=== PATIENT | male | born 1960 | race Two or more races ===

== ENCOUNTER 2019-10-16 10:43 | Inpatient (IN) | payer MEDICAID ==
[~2019-10-16] VITALS: Ht 162.6 cm; Wt 69.0 kg
[~2019-10-16 10:43] MED LIST: IBUP400T35
[2019-10-16] MEDS ORDERED: PANTOPRAZOLE 40 MG/10 ML VIAL INJ IV ONE (11:15)
[2019-10-16] MEDS ORDERED: DexAMETHasone SOD PHOS 4 MG/1ML SDV INJ IV ONE (11:15)
[2019-10-16] MEDS ORDERED: ASCORBIC ACID 500 MG TAB PO ONE (11:15)
[2019-10-16 12:27] LABS: Basophils # (auto) 0 10 ^3/uL (0-0.2); Basophils % (auto) 0.3 % (0.0-2.0); Eosinophils # (auto) 0.1 10 ^3/uL (0-0.8); Eosinophils % (auto) 0.7 % (0.0-7.0); Hematocrit 42.4 % (41.0-53.0); Hemoglobin 14.5 g/dL (13.5-17.5); Lymphocytes # (auto) 1.2 10 ^3/uL (0.4-5.4); Lymphocytes % (auto) 16.6 % (10.0-50.0); Mean Corpuscular Hemoglobin 31.1 pg (28.0-32.0); Mean Corpuscular Hgb Conc. 34.2 g/dL (32.0-36.0); Monocytes # (auto) 0.8 10 ^3/uL (0-1.3); Monocytes % (auto) 11.4 % (0.0-12.0); Neutrophils # (auto) 5.1 10 ^3/uL (1.6-8.6); Nucleated Red Blood Cells % 0.1 %; Platelet Count (auto) 135 10^3/uL (140-450); Red Blood Cells 4.66 10^6/uL (4.5-5.90); Red Cell Distribution Width 13.3 % (11.8-14.3); White Blood Cell 7.1 10^3/uL (4.4-10.8)
[2019-10-16 12:46] LABS: Albumin 3.4 g/dL (3.4-5.0); Anion Gap 7 (5-15); Blood Urea Nitrogen 12 mg/dL (7-18); Calcium 8.4 mg/dL (8.5-10.1); Carbon Dioxide 23 mmol/L (21-32); Chloride 103 mmol/L (98-107); Glucose 89 mg/dL (74-106); Potassium 3.9 mmol/L (3.5-5.1); Sodium 133 mmol/L (136-145)
[2019-10-16 12:54] LABS: Alanine Aminotransferase 80 U/L (16-61); Alkaline Phosphatase 90 U/L (45-117); Aspartate Aminotransferase 78 U/L (15-37); BUN/Creatinine Ratio 14.1; Bilirubin, Total 0.4 mg/dL (0.2-1.0); CRP High Sensitivity 1.28 mg/dL (< 0.3); GFR African American 119 mL/min; GFR Non-African American 98 mL/min; Lactate Dehydrogenase 244 U/L (87-241); Total Protein 7.4 g/dL (6.4-8.2)
[2019-10-16] MEDS ORDERED: ENOXAPARIN SOD 100 MG/1 ML SYRINGE SC ONE (13:15)
[2019-10-16] MEDS ORDERED: AZITHROMYCIN 500MG/ 250ML 250 ML IV ONE (13:30)
[2019-10-16] MEDS ORDERED: SODIUM CHLORIDE 0.9% 1,000 ML IV SCH (13:42)
[2019-10-16] MEDS ORDERED: DOCUSATE SOD 100 MG CAP PO PRN (13:45)
[2019-10-16] MEDS ORDERED: ACETAMINOPHEN 500 MG TAB PO PRN (13:45)
[2019-10-16] MEDS ORDERED: ONDANSETRON HCL 4 MG/2 ML VIAL IV PRN (13:45)
[2019-10-16] MEDS ORDERED: NITROGLYCERIN 0.4 MG SL TAB SL PRN (13:45)
[2019-10-16] MEDS ORDERED: MORPHINE SULF INJ 2 MG/ML SYRINGE 1ML IV PRN ×2 (13:45)
[2019-10-16] MEDS ORDERED: HYDROcodone-ACET 5/325MG TAB PO PRN (13:45)
[2019-10-16] MEDS ORDERED: LORazepam 0.5 MG TAB PO PRN (13:45)
[2019-10-16] MEDS ORDERED: FUROSEMIDE 20 MG/2 ML VIAL IV ONE (14:00)
[2019-10-16] MEDS ORDERED: DexAMETHasone 4 MG TAB PO ONE (14:00)
[2019-10-16 18:13] LABS: Cholesterol 97 mg/dL (< 200); HDL Cholesterol 42 mg/dL (40-59); LDL Cholesterol 51 mg/dL (< 100); Triglycerides 44 mg/dL (< 150)
[2019-10-16] MEDS: FUROSEMIDE 20 MG/2 ML VIAL IV SCH (18:17)
[2019-10-16 18:18] LABS: Albumin 3.7 g/dL (3.4-5.0); Calcium 8.7 mg/dL (8.5-10.1); Potassium 4.2 mmol/L (3.5-5.1)
[2019-10-16 18:27] LABS: BUN/Creatinine Ratio 15.6; Bilirubin, Total 0.4 mg/dL (0.2-1.0); CRP High Sensitivity 2.06 mg/dL (< 0.3)
[2019-10-16] MEDS: DexAMETHasone 4 MG TAB PO SCH (22:00)
[2019-10-16] MEDS: ALBUTEROL SULF HFA 90MCG INH 200DOSE IN SCH (22:00)
[2019-10-16] MEDS: FAMOTIDINE (10MG/ML) 2ML VL IV SCH (22:00)
[2019-10-16] MEDS: DOXYCYCLINE 100 MG TAB/CAP PO SCH (22:00)
[2019-10-17] VITALS (7 sets, daily range): BP systolic 97–116; BP diastolic 60–66
[2019-10-17] MEDS: ALBUTEROL SULF HFA 90MCG INH 200DOSE IN SCH ×3 (06:00→22:03)
[2019-10-17] MEDS: FUROSEMIDE 20 MG/2 ML VIAL IV SCH (06:28)
[2019-10-17] MEDS: FAMOTIDINE (10MG/ML) 2ML VL IV SCH ×2 (09:54→21:56)
[2019-10-17] MEDS: DexAMETHasone 4 MG TAB PO SCH (09:55)
[2019-10-17] MEDS: ZINC SULFATE 220mg CAP or TAB PO SCH (09:55)
[2019-10-17] MEDS: DOXYCYCLINE 100 MG TAB/CAP PO SCH ×2 (09:55→22:00)
[2019-10-17] MEDS: ENOXAPARIN SOD 40 MG/0.4 ML SYRINGE SC SCH (09:56)
[2019-10-17] MEDS: ASCORBIC ACID 1,000 MG TAB PO SCH (09:57)
[2019-10-17] MEDS: CHOLECALCIFEROL (VITD3) 1,000IU=25mCg TAB PO SCH (09:57)
[2019-10-17 10:18] LABS: Basophils # (auto) 0 10 ^3/uL (0-0.2); Basophils % (auto) 0.9 % (0.0-2.0); Eosinophils # (auto) 0 10 ^3/uL (0-0.8); Hematocrit 44.4 % (41.0-53.0); Lymphocytes % (auto) 18.8 % (10.0-50.0); Mean Corpuscular Hemoglobin 31.1 pg (28.0-32.0); Mean Corpuscular Hgb Conc. 33.8 g/dL (32.0-36.0); Monocytes # (auto) 0.5 10 ^3/uL (0-1.3); Monocytes % (auto) 9.5 % (0.0-12.0); Neutrophils # (auto) 3.6 10 ^3/uL (1.6-8.6); Neutrophils % (auto) 70.8 % (37.0-80.0); Nucleated Red Blood Cells % 0.1 %; Platelet Count (auto) 136 10^3/uL (140-450); Red Blood Cells 4.83 10^6/uL (4.5-5.90); Red Cell Distribution Width 13.2 % (11.8-14.3); White Blood Cell 5.1 10^3/uL (4.4-10.8)
[2019-10-17 10:25] LABS: INR 1.07 (0.9-1.15); Partial Thromboplastin Time 32.2 sec (23.64-32.05)
[2019-10-17 10:38] LABS: Potassium 4.3 mmol/L (3.5-5.1)
[2019-10-17 10:45] LABS: Albumin 3.4 g/dL (3.4-5.0); Bilirubin, Total 0.5 mg/dL (0.2-1.0); Calcium 8.5 mg/dL (8.5-10.1); Magnesium 2.3 mg/dL (1.6-2.6); Total Protein 7.5 g/dL (6.4-8.2)
[2019-10-17] MEDS ORDERED: INSULIN 70/30 1unit/0.01ml Susp (100units/ml) SC ONE (11:15)
[2019-10-17] MEDS: INSULIN 70/30 1unit/0.01ml Susp (100units/ml) SC SCH (22:01)
[2019-10-18 05:00] VITALS: BP 104/70
[2019-10-18] MEDS: ALBUTEROL SULF HFA 90MCG INH 200DOSE IN SCH ×2 (06:13→14:00)
[2019-10-18 07:33] LABS: Potassium 4.3 mmol/L (3.5-5.1)
[2019-10-18 07:40] LABS: Albumin 3.3 g/dL (3.4-5.0); BUN/Creatinine Ratio 36.5; Bilirubin, Total 0.4 mg/dL (0.2-1.0); Calcium 8.7 mg/dL (8.5-10.1); Total Protein 7.8 g/dL (6.4-8.2)
[2019-10-18 08:17] VITALS: BP 105/71
[2019-10-18] MEDS ORDERED: LISINOPRIL 5 MG TAB PO SCH (10:00)
[2019-10-18] MEDS: FAMOTIDINE (10MG/ML) 2ML VL IV SCH (10:09)
[2019-10-18] MEDS: CHOLECALCIFEROL (VITD3) 1,000IU=25mCg TAB PO SCH (10:10)
[2019-10-18] MEDS: DOXYCYCLINE 100 MG TAB/CAP PO SCH (10:10)
[2019-10-18] MEDS: ZINC SULFATE 220mg CAP or TAB PO SCH (10:10)
[2019-10-18] MEDS: ASCORBIC ACID 1,000 MG TAB PO SCH (10:10)
[2019-10-18] MEDS: ENOXAPARIN SOD 40 MG/0.4 ML SYRINGE SC SCH (10:11)
[2019-10-18] MEDS: INSULIN 70/30 1unit/0.01ml Susp (100units/ml) SC SCH (10:11)
[2019-10-18 13:00] VITALS: BP 104/61
[2019-10-18 15:05] VITALS: BP 105/71
[2019-10-18] MEDS ORDERED: ATORVASTATIN 20 MG TAB PO SCH (22:00)
== END 2019-10-18 15:35 | disposition home or self-care (01) | DRG 137 ==
LOC: ER 10:43 → TELE 10:44 → TELE-E-ADS 21:30
PROVIDERS: ADMIT Hospitalist; ATTEND Internal Medicine
DX: U07.1 COVID-19 (principal); J12.89 Other viral pneumonia; J96.01 Acute respiratory failure with hypoxia; D69.6 Thrombocytopenia, unspecified; E87.1 Hypo-osmolality and hyponatremia; I10 Essential (primary) hypertension; R43.9 Unspecified disturbances of smell and taste; E78.5 Hyperlipidemia, unspecified; E66.9 Obesity, unspecified; Z83.3 Family history of diabetes mellitus; Z80.9 Family history of malignant neoplasm, unspecified; Z87.891 Personal history of nicotine dependence; Z79.899 Other long term (current) drug therapy; J44.9 Chronic obstructive pulmonary disease, unspecified; Z68.27 Body mass index [BMI] 27.0-27.9, adult
CPT/HCPCS: 36415; 36600; 71045; 80053; 80061; 82728; 82805; 82962; 83036; 83605; 83615; 83735; 83880; 84100; 84443; 84484; 85025; 85379; 85610; 85730; 86141; 87040; 87804; 87880; 93005; 94640; C9113; G0378; J1100; J3490

== ENCOUNTER 2019-10-19 22:40 | Inpatient (IN) | payer MEDICAID ==
[~2019-10-19] VITALS: Ht 165.1 cm; Wt 57.1 kg
[2019-10-19 23:45] LABS: Basophils # (auto) 0 10 ^3/uL (0-0.2); Eosinophils # (auto) 0 10 ^3/uL (0-0.8); Hematocrit 46.6 % (41.0-53.0); Hemoglobin 15.9 g/dL (13.5-17.5); Lymphocytes # (auto) 0.7 10 ^3/uL (0.4-5.4); Lymphocytes % (auto) 10.4 % (10.0-50.0); Mean Corpuscular Hemoglobin 31.1 pg (28.0-32.0); Mean Corpuscular Hgb Conc. 34.2 g/dL (32.0-36.0); Mean Corpuscular Volume 91.1 fL (80.0-100.0); Monocytes # (auto) 0.4 10 ^3/uL (0-1.3); Monocytes % (auto) 5.7 % (0.0-12.0); Neutrophils # (auto) 5.7 10 ^3/uL (1.6-8.6); Neutrophils % (auto) 83.9 % (37.0-80.0); Nucleated Red Blood Cells % 0.2 %; Platelet Count (auto) 108 10^3/uL (140-450); Red Blood Cells 5.12 10^6/uL (4.5-5.90); Red Cell Distribution Width 13.6 % (11.8-14.3); White Blood Cell 6.8 10^3/uL (4.4-10.8)
[2019-10-20 00:05] LABS: Albumin 3.3 g/dL (3.4-5.0); Anion Gap 11 (5-15); Blood Urea Nitrogen 14 mg/dL (7-18); Calcium 8.3 mg/dL (8.5-10.1); Carbon Dioxide 22 mmol/L (21-32); Chloride 96 mmol/L (98-107); Glucose 285 mg/dL (74-106); Potassium 3.7 mmol/L (3.5-5.1); Sodium 129 mmol/L (136-145)
[2019-10-20 00:12] LABS: Alanine Aminotransferase 60 U/L (16-61); Alkaline Phosphatase 103 U/L (45-117); Aspartate Aminotransferase 55 U/L (15-37); BUN/Creatinine Ratio 12.3; Bilirubin, Total 0.5 mg/dL (0.2-1.0); GFR African American 85 mL/min; GFR Non-African American 70 mL/min; Total Protein 8.2 g/dL (6.4-8.2)
[2019-10-20] MEDS ORDERED: ONDANSETRON HCL 4 MG/2 ML VIAL IV PRN (02:45)
[2019-10-20] MEDS ORDERED: DEXTROSE (50%) 50ML SYRG IV PRN (02:45)
[2019-10-20] MEDS ORDERED: DOCUSATE SOD 100 MG CAP PO PRN (02:45)
[2019-10-20] MEDS ORDERED: HYDROcodone-ACET 5/325MG TAB PO PRN (02:45)
[2019-10-20] MEDS: SODIUM CHLORIDE 0.9% 1,000 ML IV SCH ×2 (04:22→22:13)
[2019-10-20] MEDS: ACETAMINOPHEN 500 MG TAB PO PRN (04:25)
[2019-10-20 05:41] LABS: Lactic Acid w/Reflex 5.5 mmol/L (0.4-2.0)
[2019-10-20] MEDS: ACCU-CHEK COMFORT CURVE STRIP VI SCH ×3 (06:24→17:53)
[2019-10-20] MEDS: InsuLIN REG 1unit/0.01ml Soln (100units/ml) SC SCH ×3 (06:30→17:54)
[2019-10-20 06:39] LABS: Urine Bacteria NONE SEEN /hpf (None Seen); Urine Blood Negative /uL (Negative); Urine WBC 2 /hpf (0 - 3)
[2019-10-20] MEDS: ALBUTEROL SULF HFA 90MCG INH 200DOSE IN SCH ×3 (07:39→21:53)
[2019-10-20 08:40] LABS: Basophils # (auto) 0 10 ^3/uL (0-0.2); Basophils % (auto) 0.1 % (0.0-2.0); Eosinophils # (auto) 0 10 ^3/uL (0-0.8); Eosinophils % (auto) 0.1 % (0.0-7.0); Hematocrit 39.3 % (41.0-53.0); Hemoglobin 13.7 g/dL (13.5-17.5); Lymphocytes # (auto) 0.8 10 ^3/uL (0.4-5.4); Lymphocytes % (auto) 15.9 % (10.0-50.0); Mean Corpuscular Hemoglobin 31.3 pg (28.0-32.0); Mean Corpuscular Hgb Conc. 34.8 g/dL (32.0-36.0); Mean Corpuscular Volume 89.8 fL (80.0-100.0); Monocytes # (auto) 0.4 10 ^3/uL (0-1.3); Monocytes % (auto) 7.8 % (0.0-12.0); Neutrophils % (auto) 76.1 % (37.0-80.0); Nucleated Red Blood Cells % 0.1 %; Platelet Count (auto) 84 10^3/uL (140-450); Red Blood Cells 4.38 10^6/uL (4.5-5.90); Red Cell Distribution Width 13.6 % (11.8-14.3); White Blood Cell 5.2 10^3/uL (4.4-10.8)
[2019-10-20 08:56] LABS: Calcium 7.6 mg/dL (8.5-10.1); Potassium 4.1 mmol/L (3.5-5.1)
[2019-10-20 08:59] LABS: BUN/Creatinine Ratio 16.9; Magnesium 2.2 mg/dL (1.6-2.6)
[2019-10-20 09:30] VITALS: BP 105/70
--- NOTE | 2019-10-20 09:30 | NUR ---
Telemetry admit from ER RITA PALM admitted to Telemetry unit after SBAR received. Patient oriented to KINDRA CHAPMAN, primary RN, unit, room, bed, and unit policies regarding patient care and visiting hours. Patient now on continuous telemetry monitoring, tele box # 11 and telemetry reading on arrival to unit is SR. Patient placed on bedside oxygen AT 5L, weighed by bedscale and encouraged to call if they need something. All questions and concerns addressed, patient verbalized understanding.
[2019-10-20 09:54] VITALS: BP 110/67
[2019-10-20] MEDS: DOXYCYCLINE 100 MG TAB/CAP PO SCH ×2 (12:09→22:14)
[2019-10-20] MEDS: ASCORBIC ACID 1,000 MG TAB PO SCH (12:09)
[2019-10-20] MEDS: ZINC SULFATE 220mg CAP or TAB PO SCH (12:09)
[2019-10-20] MEDS: CHOLECALCIFEROL (VITD3) 1,000UNIT=25mCg TAB PO SCH (12:10)
[2019-10-20] MEDS: ENOXAPARIN SOD 40 MG/0.4 ML SYRINGE SC SCH (12:10)
[2019-10-20] MEDS ORDERED: DexAMETHasone 4 MG TAB PO ONE (13:15)
[2019-10-20] MEDS ORDERED: FUROSEMIDE 20 MG/2 ML VIAL IV ONE (13:15)
[2019-10-20 13:16] VITALS: BP 105/70
[2019-10-20 13:18] VITALS: BP 105/70
[2019-10-20 17:00] VITALS: BP 118/81
--- NOTE | 2019-10-20 17:15 | NUR ---
PT C/O SOB. PAGED RT. INSTRUCTED TO PUT PT ON OXYMIZER AT 6L. PT O2 SAT NOW AT 93%. WILL CONTINUE TO MONITOR.
[2019-10-20] MEDS: FUROSEMIDE 20 MG/2 ML VIAL IV SCH (17:52)
[2019-10-20] MEDS: ACETAMINOPHEN 325 MG TAB PO PRN (18:10)
--- NOTE | 2019-10-20 20:00 | NUR ---
open note assumed care of pt. upin entering room pt awake, alert. pt on 6L oxymizer currently o2 saturation is 94 percent. no s/s distress noted or expressed. pt denies any pain. pt updated on plan of care. bed locked, low and 2x rails up. pt encouraged to call as needed. this nurse to round q1hr and prn. call light in reach.
[2019-10-20 21:42] VITALS: BP 97/60
[2019-10-20] MEDS: DexAMETHasone 4 MG TAB PO SCH (22:14)
[2019-10-21] MEDS: ACCU-CHEK COMFORT CURVE STRIP VI SCH ×5 (00:34→23:34)
[2019-10-21] MEDS: InsuLIN REG 1unit/0.01ml Soln (100units/ml) SC SCH ×5 (00:36→23:34)
[2019-10-21 05:47] VITALS: BP 103/67
[2019-10-21 06:00] VITALS: BP 104/63
[2019-10-21] MEDS: FUROSEMIDE 20 MG/2 ML VIAL IV SCH ×2 (06:21→17:12)
[2019-10-21] MEDS: ALBUTEROL SULF HFA 90MCG INH 200DOSE IN SCH ×3 (06:30→23:33)
[2019-10-21 07:29] LABS: Basophils # (auto) 0 10 ^3/uL (0-0.2); Eosinophils # (auto) 0 10 ^3/uL (0-0.8); Hematocrit 41.7 % (41.0-53.0); Hemoglobin 14.3 g/dL (13.5-17.5); Lymphocytes # (auto) 0.5 10 ^3/uL (0.4-5.4); Lymphocytes % (auto) 17.5 % (10.0-50.0); Mean Corpuscular Hgb Conc. 34.4 g/dL (32.0-36.0); Mean Corpuscular Volume 90.1 fL (80.0-100.0); Monocytes # (auto) 0.3 10 ^3/uL (0-1.3); Monocytes % (auto) 9.2 % (0.0-12.0); Neutrophils # (auto) 2.1 10 ^3/uL (1.6-8.6); Neutrophils % (auto) 73.3 % (37.0-80.0); Nucleated Red Blood Cells % 0.1 %; Platelet Count (auto) 97 10^3/uL (140-450); Red Blood Cells 4.63 10^6/uL (4.5-5.90); Red Cell Distribution Width 13.1 % (11.8-14.3); White Blood Cell 2.9 10^3/uL (4.4-10.8)
[2019-10-21 07:47] LABS: Partial Thromboplastin Time 29.8 sec (23.64-32.05)
--- NOTE | 2019-10-21 07:48 | NUR ---
assumed care of pt. upon entering room pt awake, alert. pt on 6L oxymizer currently o2 saturation is 94 percent. no s/s distress noted or expressed. pt denies any pain. pt updated on plan of care. bed locked, low and 2x rails up. pt encouraged to call as needed. this nurse to round q1hr and prn. call light in reach.
[2019-10-21 07:51] LABS: Albumin 2.5 g/dL (3.4-5.0); Anion Gap 6 (5-15); Blood Urea Nitrogen 18 mg/dL (7-18); Carbon Dioxide 26 mmol/L (21-32); Chloride 98 mmol/L (98-107); Glucose 338 mg/dL (74-106); Magnesium 2.3 mg/dL (1.6-2.6); Potassium 4.4 mmol/L (3.5-5.1); Sodium 130 mmol/L (136-145); Uric Acid 3.2 mg/dL (3.5-7.2)
[2019-10-21 08:00] LABS: Alanine Aminotransferase 54 U/L (16-61); Alkaline Phosphatase 85 U/L (45-117); Aspartate Aminotransferase 49 U/L (15-37); BUN/Creatinine Ratio 19.6; Bilirubin, Total 0.4 mg/dL (0.2-1.0); CRP High Sensitivity 8.91 mg/dL (< 0.3); Creatine Kinase IFCC 112 U/L (39-308); GFR African American 108 mL/min; GFR Non-African American 89 mL/min; Lactate Dehydrogenase 347 U/L (87-241); Phosphorus 2.5 mg/dL (2.5-4.90); Total Protein 6.8 g/dL (6.4-8.2)
[2019-10-21] MEDS: DexAMETHasone 4 MG TAB PO SCH (09:21)
[2019-10-21] MEDS: ZINC SULFATE 220mg CAP or TAB PO SCH (09:21)
[2019-10-21] MEDS: ASCORBIC ACID 1,000 MG TAB PO SCH (09:22)
[2019-10-21] MEDS: DOXYCYCLINE 100 MG TAB/CAP PO SCH (09:22)
[2019-10-21] MEDS: CHOLECALCIFEROL (VITD3) 1,000UNIT=25mCg TAB PO SCH (09:22)
[2019-10-21] MEDS: ENOXAPARIN SOD 40 MG/0.4 ML SYRINGE SC SCH (09:23)
--- NOTE | 2019-10-21 10:40 | NUR ---
paged respiratory patient coughing and oxygen saturation at 75% per RT bump o2 to 15liters and patient o2 sat on 15 liters is 89% called RT again to report
--- NOTE | 2019-10-21 10:44 | NUR ---
called MD Jerez awaiting call back
--- NOTE | 2019-10-21 10:53 | NUR ---
Respiratory at bedside pt oxygentation at 15 liters is 84% RT will switch patient to a non rebreather
--- NOTE | 2019-10-21 11:04 | NUR ---
Respiratory note: CALLED TO PATIENTS ROOM FOR ASSESSMENT DUE TO LOW SPO2. PATIENT WAS FOUND ON 15LPM OXYMIZER WITH AN SPO2 OF 86%. PATIENT WAS PLACED ON A NRB AT THIS TIME AND SPO2 INCREASED TO 92%. PATIENT STATED HE FELT BETTER AND NOT SOB. HE WAS INSTRUCTED TO SELF PRONE HOURLY TO HELP INCREASE HIS OXYGENATION. HE WAS IN AGREEMENT WITH THIS. RN KESHIA MADE AWARE OF CHANGE.
--- NOTE | 2019-10-21 11:05 | NUR ---
called md wu left message awaiting call back luciana is sat at 88% on re breather at 15 liters re paged md contreras awaiting call back
[2019-10-21] MEDS ORDERED: VANCOMYCIN PER PHARMACY 0 MG IV SCH (11:15)
--- NOTE | 2019-10-21 11:16 | NUR ---
md contreras called back new orders to transfer to [facility] for high flow oxygen. Called warehouser to report orders
[2019-10-21] MEDS: SODIUM CHLORIDE 0.9% 1,000 ML IV SCH (11:44)
[2019-10-21] MEDS: HYDROCORTISONE SOD SUCC 100 MG/2ML INJ VIAL IV SCH ×2 (11:44→17:12)
[2019-10-21] MEDS ORDERED: VANCOMYCIN 1,500 MG in D5W 5% 250 ML IV SCH (11:45)
[2019-10-21] MEDS: PIPERACILLIN-TAZOB 3.375GM 100 ML IV SCH ×3 (11:45→23:33)
--- NOTE | 2019-10-21 11:56 | NUR ---
gave report to [facility] Joseph
[2019-10-21] MEDS ORDERED: PIPERACILLIN-TAZOB 3.375GM 100 ML IV SCH (12:00)
--- NOTE | 2019-10-21 12:26 | NUR ---
patient ttransfered to [facility]
[2019-10-21 13:39] VITALS: BP 139/68
--- NOTE | 2019-10-21 13:42 | NUR ---
Respiratory note: PATIENT PLACED ON HFNC PER DR. MCNALLY'S BEDSIDE ORDER FOR REFRACTORY HYPOXIA. PATIENT WAS PLACED ON SIZE MEDIUM CANNULA AND WITH THE ABOVE SETTINGS. SPO2 92%, PATIENT STATES HE FEELS GOOD AND HAS NO SOB OR DIFF BREATHING AT THIS TIME. HE STATES THAT HIGH FLOW IS COMFORTABLE. WILL CONTINUE TO ASSESS PATIENT WELL HFNC. JASSON MORRIS MADE AWARE OF HFNC PLACEMENT AND ALL SETTINGS.
--- NOTE | 2019-10-21 15:29 | NUR ---
PAGED HAL PER RADIOLOGIST FOR RESULTS FROM CXR. MUD ENGINEER WILL BE PAGING .
[2019-10-21] MEDS: VANCOMYCIN 1GM/250ML 250 ML IV SCH (16:52)
[2019-10-21 19:05] VITALS: BP 90/58
--- NOTE | 2019-10-21 19:05 | NUR ---
RT NOTE routine hfnc check. water level adequate. cont as ordered Addendum: 10/21/19 at 1934 by Ebonie Johnson RT Amended: Links added.
--- NOTE | 2019-10-21 19:13 | NUR ---
ENDORSED CARE TO NOC RN. PT IS RESTING, NO DISTRESS NOTED.
[2019-10-21 20:00] VITALS: BP 91/59
--- NOTE | 2019-10-21 20:00 | NUR ---
SHIFT OPENING NOTE RECEIVED PATIENT AWAKE, ALERT AND ORIENTED X4. ON HIGH FLOW NASAL CANNULA 35L, 70 FI02. NO DISTRESS OR PAIN AT THIS TIME. PATIENT USES URINAL INDEPENDENTLY. PHYSICAL ASSESSMENT COMPLETED, SEE INTERVENTIONS. INSTRUCTED ON POC AND TO CALL FOR ASSIST NEEDED. BED IS IN HE LOWEST POSITION WITH SIDE RAILS UP X2, CALL LIGHT IS WITHIN REACH.
[2019-10-21 22:42] VITALS: BP 94/52
--- NOTE | 2019-10-21 22:42 | NUR ---
RT NOTE HFNC CHECK DONE. WATER LEVEL IS ADEQUATE. NO CHANGES MADE. MDI ALBUTEROL GIVEN BY JASSON TINOCO Addendum: 10/21/19 at 2244 by Ebonie Johnson RT Amended: Links added.
[2019-10-22] VITALS (12 sets, daily range): BP systolic 89–102; BP diastolic 44–68
--- NOTE | 2019-10-22 02:41 | NUR ---
RT NOTE ROUTINE HFNC CHECK DONE. WATER CHANGED AT THIS TIME WITHOUT INCIDENT.CONT ORDERED Addendum: 10/22/19 at 0313 by bEonie Johnson RT Amended: Links added.
[2019-10-22] MEDS: SODIUM CHLORIDE 0.9% 1,000 ML IV SCH (04:37)
[2019-10-22 04:39] LABS: Basophils # (auto) 0 10 ^3/uL (0-0.2); Basophils % (auto) 0.1 % (0.0-2.0); Eosinophils # (auto) 0 10 ^3/uL (0-0.8); Hematocrit 41.4 % (41.0-53.0); Hemoglobin 14.2 g/dL (13.5-17.5); Lymphocytes # (auto) 0.9 10 ^3/uL (0.4-5.4); Lymphocytes % (auto) 13.5 % (10.0-50.0); Mean Corpuscular Hemoglobin 30.9 pg (28.0-32.0); Mean Corpuscular Hgb Conc. 34.3 g/dL (32.0-36.0); Monocytes # (auto) 0.8 10 ^3/uL (0-1.3); Monocytes % (auto) 12.2 % (0.0-12.0); Neutrophils # (auto) 5.1 10 ^3/uL (1.6-8.6); Neutrophils % (auto) 74.2 % (37.0-80.0); Nucleated Red Blood Cells % 0.1 %; Platelet Count (auto) 143 10^3/uL (140-450); Red Cell Distribution Width 13.1 % (11.8-14.3); White Blood Cell 6.9 10^3/uL (4.4-10.8)
[2019-10-22 04:56] LABS: Albumin 2.5 g/dL (3.4-5.0); Calcium 8.3 mg/dL (8.5-10.1); Magnesium 2.2 mg/dL (1.6-2.6); Potassium 3.9 mmol/L (3.5-5.1)
[2019-10-22 04:58] LABS: INR 0.99 (0.9-1.15); Partial Thromboplastin Time 28.4 sec (23.64-32.05)
[2019-10-22 04:59] LABS: BUN/Creatinine Ratio 23.1; Bilirubin, Total 0.4 mg/dL (0.2-1.0); Phosphorus 3.8 mg/dL (2.5-4.90); Total Protein 6.7 g/dL (6.4-8.2)
[2019-10-22] MEDS: ALBUTEROL SULF HFA 90MCG INH 200DOSE IN SCH ×3 (05:07→21:27)
[2019-10-22] MEDS: ACCU-CHEK COMFORT CURVE STRIP VI SCH ×4 (05:07→23:09)
[2019-10-22] MEDS: VANCOMYCIN 1GM/250ML 250 ML IV SCH ×2 (05:07→21:27)
[2019-10-22] MEDS: InsuLIN REG 1unit/0.01ml Soln (100units/ml) SC SCH ×4 (05:09→23:10)
[2019-10-22] MEDS: FUROSEMIDE 20 MG/2 ML VIAL IV SCH ×2 (06:29→17:36)
[2019-10-22] MEDS: PIPERACILLIN-TAZOB 3.375GM 100 ML IV SCH ×4 (06:30→23:09)
--- NOTE | 2019-10-22 06:30 | NUR ---
END OF SHIFT PATIENT QUIETLY LAYING IN BED AWAKE. REMAINS ON HIGH FLOW 35L, 70% FI0 POX 90%. VS STABLE. WILL GIVE REPORT AND ENDORSE CARE TO THE DAY SHIFT RN.
--- NOTE | 2019-10-22 07:45 | NUR ---
OPENING SHIFT NOTE: Received report from NOC RNMonique. Assumed care of patient. Received patient lying in bed, connected to bedside monitor with alarms in place. Patient currently on Novel Respiratory Isolation for COVID-19. Patient is south african speaking, A&Ox4 and denies pain. Patient with no s/s of distress noted. Patient currently on high flow 35L 70% with O2 sats 88-90%. Patient with PIV to left AC #20 infusing NS @ 60ml/hr. Bed in lowest position, rails x2 up and call light/phone within reach. Updated on plan of care. Will continue to monitor q1hr/PRN.
--- NOTE | 2019-10-22 08:45 | NUR ---
Patient calling stating he feels like high flow oxygen isn't working. Patient's O2 sats 87%, RR 34. Respiratory paged to rm 264.
--- NOTE | 2019-10-22 09:00 | NUR ---
Respiratory note: GOT PAGED TO 264. PT SATS IN THE MID 80,S. PT STATED THAT IT FELT LIKE HE WASN'T GETTING ENOUGH FLOW. INCREASED FLOW TO 55L AND FIO2 TO 90% PT'S POX RANGE FROM 89-92%. WILL CONTINUE TO MONITOR PT.
--- NOTE | 2019-10-22 10:00 | NUR ---
MEDICATIONS 1000 medications administered to patient. Five rights verified. Patient verbalized understanding of medications. Patient tolerated all medications without any difficulties.
[2019-10-22] MEDS: ASCORBIC ACID 1,000 MG TAB PO SCH (10:36)
[2019-10-22] MEDS: DexAMETHasone SOD PHOS 4 MG/1ML SDV INJ IV SCH (10:36)
[2019-10-22] MEDS: AZITHROMYCIN 500MG/ 250ML 250 ML IV SCH (10:36)
[2019-10-22] MEDS: CHOLECALCIFEROL (VITD3) 1,000UNIT=25mCg TAB PO SCH (10:36)
[2019-10-22] MEDS: ZINC SULFATE 220mg CAP or TAB PO SCH (10:36)
[2019-10-22] MEDS: ENOXAPARIN SOD 40 MG/0.4 ML SYRINGE SC SCH (10:37)
--- NOTE | 2019-10-22 11:22 | NUR ---
Called to room by patient. Patient stating he feels the high flow isn't working and is constantly watching monitor. High flow setup look correct. Oxygen flowing from nasal cannula. Patient's O2 sats 86-87%. Increased High Flow to 55L 100%. Will notify RT, Yessina. Patient also instructed on use of incentive spirometry. Patient initial levels ~500. Will continue to monitor.
--- NOTE | 2019-10-22 11:50 | NUR ---
MD Dr Moseley in room to see patient. No new orders received.
--- NOTE | 2019-10-22 15:08 | NUR ---
Patient resting in room. Patient remains on high flow 55L 100%. O2 sats 96%. Will work with Respiratory to decrease O2 requirements.
--- NOTE | 2019-10-22 19:00 | NUR ---
END OF SHIFT Patient resting in bed with no s/s of distress. Patient remains on high flow at 55L 100% with O2 sats 92%. Report to be given to Monique SPRINGER RN.
--- NOTE | 2019-10-22 20:00 | NUR ---
SHIFT OPENING NOTE RECEIVED PATIENT AWAKE, ALERT AND ORIENTED X4. ON HIGH FLOW NASAL CANNULA 50L, 100% FI02. NO DISTRESS OR PAIN AT THIS TIME. PATIENT USES URINAL INDEPENDENTLY. PHYSICAL ASSESSMENT COMPLETED, SEE INTERVENTIONS. INSTRUCTED ON POC AND TO CALL FOR ASSIST NEEDED. BED IS IN THE LOWEST POSITION WITH SIDE RAILS UP X2, CALL LIGHT IS WITHIN REACH.
[2019-10-22] MEDS: INSULIN 70/30 1unit/0.01ml Susp (100units/ml) SC SCH (21:30)
[2019-10-22] MEDS: LORazepam 0.5 MG TAB PO PRN (23:09)
[2019-10-23] VITALS (11 sets, daily range): BP systolic 97–118; BP diastolic 40–69
--- NOTE | 2019-10-23 02:40 | NUR ---
PERIODS OF CONFUSION PATIENT HAD PERIODS OF CONFUSION WHERE HE TOOK ON HIS HIGH FLOW NC AND PULSE OX AND TRIED TO GET OUT OF BED. REORIENTED PATIENT AND HELPED HIM SETTLE BACK INTO THE BED. HIGH FLOW READJUSTED WITH POX 92%. BED ALARM TURNED ON. WILL CLOSELY MONITOR.
[2019-10-23 04:18] LABS: Potassium 3.7 mmol/L (3.5-5.1)
[2019-10-23 04:28] LABS: Albumin 2.5 g/dL (3.4-5.0); BUN/Creatinine Ratio 22.5; Bilirubin, Total 0.5 mg/dL (0.2-1.0); Calcium 8.3 mg/dL (8.5-10.1)
[2019-10-23] MEDS: ALBUTEROL SULF HFA 90MCG INH 200DOSE IN SCH ×3 (05:11→22:21)
[2019-10-23] MEDS: ACCU-CHEK COMFORT CURVE STRIP VI SCH ×3 (05:11→18:26)
[2019-10-23] MEDS: InsuLIN REG 1unit/0.01ml Soln (100units/ml) SC SCH ×3 (05:12→18:23)
[2019-10-23] MEDS: FUROSEMIDE 20 MG/2 ML VIAL IV SCH ×2 (06:01→18:43)
[2019-10-23] MEDS: PIPERACILLIN-TAZOB 3.375GM 100 ML IV SCH ×3 (06:01→18:26)
--- NOTE | 2019-10-23 06:10 | NUR ---
CORRECT TIME OF ASSESSMENT FOR HIGH NC 0610 Addendum: 10/23/19 at 1205 by RT YONY RT Amended: Links added.
--- NOTE | 2019-10-23 07:25 | NUR ---
END OF SHIFT REPORT GIVEN AND CARE ENDORSED TO IDANIA SPAULDING.
[2019-10-23] MEDS: ASCORBIC ACID 1,000 MG TAB PO SCH (09:30)
[2019-10-23] MEDS: ZINC SULFATE 220mg CAP or TAB PO SCH (09:30)
[2019-10-23] MEDS: AZITHROMYCIN 500MG/ 250ML 250 ML IV SCH (09:30)
[2019-10-23] MEDS: CHOLECALCIFEROL (VITD3) 1,000UNIT=25mCg TAB PO SCH (09:30)
[2019-10-23] MEDS: DexAMETHasone SOD PHOS 4 MG/1ML SDV INJ IV SCH (09:30)
[2019-10-23] MEDS: ENOXAPARIN SOD 40 MG/0.4 ML SYRINGE SC SCH (09:31)
[2019-10-23] MEDS: INSULIN 70/30 1unit/0.01ml Susp (100units/ml) SC SCH ×2 (09:58→22:32)
--- NOTE | 2019-10-23 10:00 | NUR ---
AM ASSESSMENT COMPLETED , AM NEDS GIVEN AT THIS TIME PT ON CLUSTER CARE D/T COVID 19 STATUS. EDUCATED ON POC, PT VERBALIZED UNDERSTANDING. IV PATENT. PT REMAINS ON HIGH FLOW 55L /MIN AT 100% FIO2. PT A LITTLE SLEEPY AT THIS TIME UNABLE TO EAT HIS BREAKFAST. PT WAS CONFUSED LAST NIGHT FROM AN ATIVAN PILL HE RECEIVED TO HELP WITH ANXIETY.
--- NOTE | 2019-10-23 12:00 | NUR ---
BG 168, MEDICATED WITH 3 UNITS OF REGULAR INSULIN SUB CUTANEOUSLY.
[2019-10-23] MEDS: VANCOMYCIN 1GM/250ML 250 ML IV SCH ×2 (13:28→22:21)
--- NOTE | 2019-10-23 14:14 | NUR ---
Nutrition Assessment Notes please see attached link for complete assessment [employer] needs BW 71 [id number] kcals (23-25 kcal/kgBW), Est Protein needs: 71-78 gms/day (1.0-1.1 gm/kgBW). Will continue to monitor and reassess prn. Addendum: 10/23/19 at [address] Amended: Links added.
--- NOTE | 2019-10-23 14:52 | NUR ---
DR. MCNALLY IN TO SEE PT HE WANTS PT TO START PRONING SOME MORE, CONTINUE UTILIZING INCENTIVE INSPIROMETER TO INFLATE THE LUNGS. PT STATES PRONING IS DIFFICULT. GAVE ORDERS TO START USING CPAP ALTERNATING WITH HIGH FLOW.
--- NOTE | 2019-10-23 15:00 | NUR ---
PT SELF PHONED FROM 1500 TO 1600 SPO2 INCREASED TO 99%. THEN PT C/O FEELING TIRED AND WENT BACK TO LYING ON HIS SIDE. RT HAS DECREASED THE FIO2 TO 80% AND CUT DOWN THE OXYGEN TO 45 L/MIN SINCE 1350.
--- NOTE | 2019-10-23 19:00 | NUR ---
REPORT GIVEN TO WELDING TESTER.
--- NOTE | 2019-10-23 20:00 | NUR ---
SHIFT OPENING NOTE RECEIVED PATIENT AWAKE, ALERT AND ORIENTED X4. ON HIGH FLOW NASAL CANNULA 45L, 80% FI02. NO DISTRESS OR PAIN AT THIS TIME. PATIENT USES URINAL INDEPENDENTLY. PHYSICAL ASSESSMENT COMPLETED, SEE INTERVENTIONS. INSTRUCTED ON POC AND TO CALL FOR ASSIST NEEDED. BED IS IN THE LOWEST POSITION WITH SIDE RAILS UP X2, CALL LIGHT IS WITHIN REACH.
[2019-10-23] MEDS: ACETAMINOPHEN 500 MG TAB PO PRN (22:22)
[2019-10-24] VITALS (9 sets, daily range): BP systolic 95–114; BP diastolic 51–67
[2019-10-24] MEDS: PIPERACILLIN-TAZOB 3.375GM 100 ML IV SCH ×4 (00:16→19:00)
[2019-10-24] MEDS: InsuLIN REG 1unit/0.01ml Soln (100units/ml) SC SCH ×4 (00:16→18:03)
[2019-10-24] MEDS: ACCU-CHEK COMFORT CURVE STRIP VI SCH ×4 (00:16→17:45)
--- NOTE | 2019-10-24 02:00 | NUR ---
ROUNDS PATIENT IS QUIETLY LAYING IN BED SLEEPING. NO SOB, DISTRESS OR PAIN NOTED. REMAINS ON HIGH FLOW 45 L, 80% FI02. POX 92%.
[2019-10-24 04:08] LABS: Basophils # (auto) 0 10 ^3/uL (0-0.2); Basophils % (auto) 0.2 % (0.0-2.0); Eosinophils # (auto) 0 10 ^3/uL (0-0.8); Hematocrit 42.1 % (41.0-53.0); Hemoglobin 14.5 g/dL (13.5-17.5); Lymphocytes # (auto) 1.2 10 ^3/uL (0.4-5.4); Lymphocytes % (auto) 15.1 % (10.0-50.0); Mean Corpuscular Hgb Conc. 34.5 g/dL (32.0-36.0); Mean Corpuscular Volume 90.1 fL (80.0-100.0); Monocytes # (auto) 0.5 10 ^3/uL (0-1.3); Monocytes % (auto) 5.9 % (0.0-12.0); Neutrophils # (auto) 6.4 10 ^3/uL (1.6-8.6); Neutrophils % (auto) 78.8 % (37.0-80.0); Nucleated Red Blood Cells % 0.1 %; Platelet Count (auto) 171 10^3/uL (140-450); Red Blood Cells 4.68 10^6/uL (4.5-5.90); Red Cell Distribution Width 13.3 % (11.8-14.3); White Blood Cell 8.2 10^3/uL (4.4-10.8)
[2019-10-24 04:26] LABS: Albumin 2.5 g/dL (3.4-5.0); Calcium 8.1 mg/dL (8.5-10.1); Potassium 3.3 mmol/L (3.5-5.1)
[2019-10-24 04:29] LABS: BUN/Creatinine Ratio 23.3; Bilirubin, Total 0.6 mg/dL (0.2-1.0)
[2019-10-24] MEDS: ALBUTEROL SULF HFA 90MCG INH 200DOSE IN SCH ×3 (06:10→22:27)
[2019-10-24] MEDS: FUROSEMIDE 20 MG/2 ML VIAL IV SCH ×2 (06:10→18:00)
--- NOTE | 2019-10-24 06:45 | NUR ---
END OF SHIFT PATIENT IS QUIETLY LAYING IN BED SLEEPING. HIGH FLOW SETTINGS 45L, 80% FIO2. WILL GIVE REPORT AND ENDORSE CARE TO THE DAY SHIFT RN.
--- NOTE | 2019-10-24 07:25 | NUR ---
INCREASED HIGH FLOW SETTINGS TO 50LPM, FIO2 85% AFTER REVIEWING ABG RESULTS. NOTIFIED RN OF CHANGES. PT TOLERATING WELL, SPO2 NOW MAINTAINING 94%.
--- NOTE | 2019-10-24 07:35 | NUR ---
OPENING SHIFT NOTE REPORT RECEIVED FROM HIDE DROPPER RN, PATIENT RESTING IN BED WITH EYES CLOSED, NO DISTRESS NOTED, RESPIRATIONS EVEN AND UNLABORED. PATIENT CURRENTLY ON ISOLATION PRECAUTIONS - POSITIVE COVID 19. WILL CONTINUE TO MONITOR.
[2019-10-24] MEDS: VANCOMYCIN 1GM/250ML 250 ML IV SCH ×2 (09:00→16:48)
[2019-10-24] MEDS: DexAMETHasone SOD PHOS 4 MG/1ML SDV INJ IV SCH (09:00)
[2019-10-24] MEDS: ZINC SULFATE 220mg CAP or TAB PO SCH (09:01)
[2019-10-24] MEDS: CHOLECALCIFEROL (VITD3) 1,000UNIT=25mCg TAB PO SCH (09:02)
[2019-10-24] MEDS: ASCORBIC ACID 1,000 MG TAB PO SCH (09:02)
[2019-10-24] MEDS: ENOXAPARIN SOD 40 MG/0.4 ML SYRINGE SC SCH ×2 (09:03→21:59)
[2019-10-24] MEDS: INSULIN 70/30 1unit/0.01ml Susp (100units/ml) SC SCH ×2 (09:05→22:00)
--- NOTE | 2019-10-24 09:30 | NUR ---
PRONING/ASSESSMENT PATIENT ASSESSMENT AND MEDICATION PASSED AT THIS TIME. SOLOMON ISLANDER SPEAKING PATIENT ALERT AND ORIENTED X4. PATIENT DENIES PAIN AT THIS TIME BUT DOES REPORT SHORTNESS OF BREATH ON EXERTION. PLAN OF CARE WITH DISCUSSED WITH PATIENT IN [place] ISLANDER, PATIENT VERBALIZED UNDERSTANDING. THE IMPORTANCE OF PRONING WAS DISCUSSED WITH PATIENT AND PATIENT VERBALIZED UNDERSTANDING, COMFORT MEASURES APPLIED AND PATIENT ABLE TO LIE ON HIS BELLY WITH MINIMAL ASSISTANCE. PATIENT TOLERATING WELL. CALL LIGHT, PHONE AND ALL PERSONAL BELONGINGS WITHIN REACH. FALL AND SAFETY PRECAUTIONS IN PLACE. WILL CONTINUE TO MONITOR.
--- NOTE | 2019-10-24 10:35 | NUR ---
TITRATED HIGH FLOW SETTINGS DOWN TO 40LPM, FIO2 65%. PT CURRENTLY SELF-PRONING, TOLERATING CHANGES WELL. SPO2 MAINTAINING AT 97%. NOTIFIED RN OF CHANGES.
--- NOTE | 2019-10-24 10:37 | NUR ---
Family updated on pt status Family of RITA PALM updated on patient's status and condition after password verification. All questions and concerns addressed. Gabi verbalized understanding.
[2019-10-24] MEDS ORDERED: POTASSIUM CHL 20 Meq TABLET PO ONE (11:30)
[2019-10-24] MEDS: AZITHROMYCIN 500MG/ 250ML 250 ML IV SCH (11:46)
--- NOTE | 2019-10-24 12:31 | NUR ---
PRONING PATIENT ASSESSMENT, OFFER LUNCH AND ACCU CHECK. PATIENT REPORTED TO THIS NURSE THAT HE WANTED TO CONTINUE STAYING AND PRONE POSITION AND WILL HOLD OFF FROM EATING LUNCH AT THIS TIME. PATIENT WILL NOTIFY WHEN HE IS READY TO EAT. PATIENT TOLERATING PRONING WELL, VSS AND DOCUMENTED. CALL LIGHT, PHONE AND ALL PERSONAL BELONGINGS WITHIN REACH. FALL AND SAFETY PRECAUTIONS IN PLACE. WILL CONTINUE TO MONITOR.
--- NOTE | 2019-10-24 14:14 | NUR ---
ASSESSMENT ED PHYSICIANS SPOKE WITH PT'S SPOUSE ANTONIA [phone] PER INITIAL ASSESSMENT. PT IS A 58 YR OLD MALE ADMITTED FOR COVID. HE HAS A HX OF DM, HTN. PT'S FAMILY HAS BEEN TESTED, THEY ARE AWAITING THEIR RESULTS. SPOUSE REPORTS THAT PT HAS A ROOM TO SELF ISOLATE IN [place]. PT WAS INDEPENDENT WITH ADL'S PRIOR TO ADMISSION. HE MANAGES HIS OWN INSULIN, PCP IS AT [facility] IN [place]. PT DOES NOT HAVE DME BUT FAMILY STATES PT WAS TOLD IN THE PAST HE NEEDS TO BE ON . PT DOES NOT HAVE AHCD/POA, FAMILY DECLINED AHCD AT THIS TIME. PLAN IS FOR PT TO DC HOME WITH HOME HEALTH NEEDED. SS TO CONTINUE TO MONITOR PT FOR HOME HEALTH NEEDS. Addendum: 10/24/19 at 1417 by JOSSELYN SULTANA SS Amended: Links added.
--- NOTE | 2019-10-24 14:25 | NUR ---
HIGH FLOW NC: 50LPM, FIO2 80% FOUND PT WITH SPO2 84%, RESTING IN BED WITH NO DISTRESS. ADMINISTERED MDI TX VIA SPACER, NO ADVERSE REACTIONS NOTED. INCREASED HIGH FLOW SETTINGS TO 50LPM, FIO2 80%. ENCOURAGED PT TO SELF-PRONE, PT AGREED AND TURNED OVER TO PRONE POSITION. O2 SATS IMPROVED, CURRENTLY AT 91%. WATER ROLDAN LEVEL ADEQUATE AT THIS TIME. WILL CONTINUE TO MONITOR.
[2019-10-24] MEDS: ACETAMINOPHEN 325 MG TAB PO PRN ×2 (15:13→22:27)
--- NOTE | 2019-10-24 15:14 | NUR ---
HEADACHE/PRONE PATIENT REPORTED TO THIS NURSE HAVING A HEADACHE 06/25. TYLENOL 650 MG ADMINISTERED ORDERED BY MD. PATIENT CONTINUED TO PRONE, WILL CONTINUE TO MONITOR FOR SAFETY, OXYGENATION AND CONTINUED PAIN. PATIENT ASSISTED IN PRONE POSITION ONCE AGIAN.
[2019-10-24 16:44] LABS: Calcium 8.3 mg/dL (8.5-10.1); Potassium 4.1 mmol/L (3.5-5.1)
--- NOTE | 2019-10-24 16:56 | NUR ---
HEADACHE REASSESSMENT PATIENT RESTING IN BED IN PRONE POSITION, VSS AND DOCUMENTED. PATIENT DENIES PAIN OR DISCOMFORT AT THIS TIME.
--- NOTE | 2019-10-24 18:38 | NUR ---
Respiratory note: RECEIVED PT ON HFNC UNIT. UNIT CONNECTED TO RED OUTLET, O2 AND MEDICAL AIR WALL SOURCE. ALARMS ARE SET AND AUDIBLE. AMBU BAG AND MASK AT BEDSIDE. WILL CONTINUE TO MONITOR.
--- NOTE | 2019-10-24 20:00 | NUR ---
OPENING NOTE REPORT RECEIVED FROM RADHA RN PATIENT IS POSITIVE FOR COVID 19 AND IS ON NOVEL RESPIRATORY ISOLATION. PATIENT IS A/OX4, PRIMARILY GAMBIAN SPEAKING, CONNECTED TO CONTINUOUS BEDSIDE MONITORS. PATIENT IS ON HIGH FLOW NASAL CANNULA AT 50L, FIO2 85%. PHYSICAL ASSESSMENT DONE-SEE INTERVENTIONS. IV NOTED TO RIGHT FOREARM 20G INTACT AND PATENT- SEE IV SPREAD SHEET.PATIENT IS ABLE TO SELF REPOSITION AND SELF PRONE. INCENTIVE SPIROMETER AT BEDSIDE, PT ABLE TO DEMONSTRATE USE AND CAN GO UP TO 500ML SYED. ENCOURAGED PATIENT TO USE INCENTIVE SPIROMETER 10 TIMES EVERY HOUR WHILE AWAKE, PATIENT VERBALIZED UNDERSTANDING. POC DISCUSSED WITH PATIENT, ALL QUESTIONS ANSWERED. CALL LIGHT AND PHONE WITHIN REACH.
--- NOTE | 2019-10-24 21:00 | NUR ---
PRONE PATIENT NOTED TO BE SELF PRONING SPO2 AT 93%, HIGH FLOW NASAL CANNULA IN PLACE, NO CHANGE IN SETTINGS. PATIENT TOLERATING WELL.
--- NOTE | 2019-10-24 21:55 | NUR ---
SUPINE PATIENT NOW BACK IN SUPINE POSITION WITH HOB ELEVATED SPO2 91%, NO CHANGE IN HIGH FLOW NASAL CANNULA SETTINGS
--- NOTE | 2019-10-24 22:27 | NUR ---
HEADACHE PATIENT C/O 06/25 HEADACHE AND REQUESTED TYLENOL. TYLENOL ADMINISTERED AFTER RIGHTS OF ADMINISTRATION CHECKED. SEE EMAR FOR DETAILS.
--- NOTE | 2019-10-24 23:27 | NUR ---
PAIN REASSESSMENT PATIENT DENIES ANY PAIN AT THIS TIME WILL CONTINUE TO MONITOR
[2019-10-25] VITALS (12 sets, daily range): BP systolic 94–112; BP diastolic 51–68
[2019-10-25] MEDS: PIPERACILLIN-TAZOB 3.375GM 100 ML IV SCH ×4 (00:10→17:42)
[2019-10-25] MEDS: InsuLIN REG 1unit/0.01ml Soln (100units/ml) SC SCH ×4 (00:10→17:26)
[2019-10-25] MEDS: ACCU-CHEK COMFORT CURVE STRIP VI SCH ×4 (00:10→17:56)
--- NOTE | 2019-10-25 00:26 | NUR ---
Respiratory note: At pts door for routine HFNC check, due to covid 19 precautions. no changes made pt comfortably laying right side down at this time. will continue to monitor.
[2019-10-25] MEDS: VANCOMYCIN 1GM/250ML 250 ML IV SCH ×3 (03:09→22:39)
[2019-10-25] MEDS: FUROSEMIDE 20 MG/2 ML VIAL IV SCH ×2 (06:00→17:56)
--- NOTE | 2019-10-25 06:00 | NUR ---
AM CARE OFFERED PATIENT BED BATH/LINEN CHANGE, PATIENT REFUSED AT THIS TIME. PATIENT ONLY REQUESTS A WARM BLANKET. PATIENT PROVIDED WITH WARM BLANKET. IV TUBING CHANGED PER PROTOCOL.
[2019-10-25] MEDS: ALBUTEROL SULF HFA 90MCG INH 200DOSE IN SCH ×3 (06:13→22:18)
--- NOTE | 2019-10-25 06:58 | NUR ---
CLOSING PATIENT RESTING COMFORTABLY IN BED CONNECTED TO CONTINUOUS BEDSIDE MONITOR. HIGH FLOW NASAL CANNULA REMAINS AT 50L, FIO2 85%WITH SPO2 90%. WILL ENDORSE CARE TO AM SHIFT RN
--- NOTE | 2019-10-25 07:42 | NUR ---
RT NOTE: MDI THERAPY ADMINISTERED BY GIAN SPAULDING AT 0613. PT. ASSESSED AND IS LAYING PRONE AT THIS TIME. PT. ON HFNC WITH CHARTED SETTINGS. PT. SLEEPING AND APPEARS TO BE TOLERATING WELL.
--- NOTE | 2019-10-25 07:50 | NUR ---
OPENING SHIFT NOTE REPORT RECEIVED FROM HVAC INSTALLER RN, MORNING ASSESSMENT PERFORMED AND DOCUMENTED. 58 YEAR OLD SWEDISH SPEAKING MALE, IN PRONE POSITION ON HIGH FLOW NASAL CANNULA AT 50 LITERS 85% FIO2. PATIENT ABLE TO SELF TURN TO SUPINE POSITION, PATIENT NOTED TO BE SHORT OF BREATH ON EXERTION, RELAXATION AND BREATHING TECHNIQUES DISCUSSED WITH PATIENT, PATIENT ABLE TO RECUPERATE SATURATIONS FROM 71% TO 91%. Khalida MCCRARY AT BEDSIDE. COMFORT MEASURES APPLIED - PATIENT ABLE TO BRUSH OWN TEETH AND WASH FACE WITH WASH CLOTH. CURRENT ACCU CHECK 81 - WILL HOLD HUMALIN 70/30 INSULIN THIS MORNING AND NOTIFY MD. BREAKFAST TRAY PROVIDED, PATIENT APPEARS TO HAVE POOR APPETITE. CALL LIGHT/PHONE AND ALL PERSONAL BELONGINGS WITHIN REACH, FALL AND SAFETY PRECAUTIONS IN PLACE. WILL CONTINUE TO MONITOR.
[2019-10-25] MEDS: CHOLECALCIFEROL (VITD3) 1,000UNIT=25mCg TAB PO SCH (09:35)
[2019-10-25] MEDS: ZINC SULFATE 220mg CAP or TAB PO SCH (09:35)
[2019-10-25] MEDS: ASCORBIC ACID 1,000 MG TAB PO SCH (09:35)
[2019-10-25] MEDS: DexAMETHasone SOD PHOS 4 MG/1ML SDV INJ IV SCH (09:35)
[2019-10-25] MEDS: AZITHROMYCIN 500MG/ 250ML 250 ML IV SCH (09:35)
[2019-10-25] MEDS: ENOXAPARIN SOD 40 MG/0.4 ML SYRINGE SC SCH ×2 (09:36→22:18)
[2019-10-25] MEDS: INSULIN 70/30 1unit/0.01ml Susp (100units/ml) SC SCH ×2 (09:36→22:18)
--- NOTE | 2019-10-25 11:12 | NUR ---
Family updated on pt status Family of RITA PALM updated on patient's status and condition after password verification. All questions and concerns addressed. Patient's daughter Sana verbalized understanding.
--- NOTE | 2019-10-25 12:59 | NUR ---
HOSPITALIST AT BEDSIDE DR BARRERA UPDATED ON PATIENT'S STATUS AND HOLDING OF LASIX WELL HUMALIN 70/30 INSULIN THIS MORNING DUE TO BS 81. DR BARRERA VERBALIZED UNDERSTANDING. DR BARRERA ALSO ORDERED ONE UNIT CONVELESCENT PLASMA TO BE ADMINISTERED.
--- NOTE | 2019-10-25 15:11 | NUR ---
PAGED HOSPITALIST RE PLASMA PHONE CALL RECEIVED FROM BLOOD BANK REGARDING ORDER FOR CONVALESCENT PLASMA ENTERED WRONG - LAB WAS NOTIFIED THAT DR BARRERA INSTRUCTED NURSE HOW TO ENTER PLASMA ORDERS WELL DR JOHN FOR ANOTHER PATIENT. LAB WAS TOLD TO CONTACT DR BARRERA TO NOTIFY, LAB STATED THEY NOTIFIED DARRELL AND WILL NOT CONTACT HOSPITALIST. PAGED DR BARRERA, AWAITING RESPONSE.
--- NOTE | 2019-10-25 16:30 | NUR ---
RETURN CALL FROM HOSPITALIST DR BARRERA NOTIFIED OF BLOOD SR REQUEST TO CHANGE ORDER AND THAT THIS NURSE SPOKE WITH DARRELL AND EVERYTHING HAS ALREADY BEEN STRAIGHTENED OUT. DR BARRERA ALSO AWARE THAT [facility] CONSENT FOR CONVELUTED PLASMA NEEDS TO BE SIGNED BY . DR BARRERA STATED HE WOULD SIGN LATER. DARRELL AWARE.
--- NOTE | 2019-10-25 18:23 | NUR ---
SPOKE WITH FAMILY REGARDING PLASMA CONSENT [facility] INFORMATION PROVIDED IN AUSTRALIAN, PATIENT REPORTED TO THIS NURSE IN AUSTRALIAN "I CANT READ". THIS NURSE READ THE PAMPHLET IN AUSTRALIAN TO PATIENT, PATIENT VERBALIZED UNDERSTANDING AND CLARIFIED SOME INFORMATION. PATIENT ASKED IF THIS NURSE CAN CALL HIS DAUGHTER NELI AND EXPLAIN THE PROCEDURE FOR FAMILY SUPPORT. THIS NURSE SPOKE WITH NELI - NELI STATED SHE WOULD DISCUSS WITH HER BROTHERS AND PATIENT'S SPOUSE AND CALL BACK. CALL RECEIVED FROM NELI STATING YES, WE WANT OUR FATHER TO RECEIVE BLOOD - PHONE CALL TRANSFERRED TO PATIENT FOR SUPPORT. PATIENT VERBALIZED UNDERSTANDING AND SIGNED CONSENT. INFORMATION FILED IN CHART.
--- NOTE | 2019-10-25 18:48 | NUR ---
CALL RECEIVED FROM COSMETICS SUPERVISOR COSMETICS SUPERVISOR NOTIFIED THIS NURSE THAT BLOOD PLASMA HAS BEEN ORDERED AND WAITING RECEIPT FROM BLOOD BANK, "PROBABLY WILL NOT RECEIVE TONIGHT".
--- NOTE | 2019-10-25 20:00 | NUR ---
OPENING NOTE REPORT RECEIVED FROM RADHA RN PATIENT IS POSITIVE FOR COVID 19 AND IS ON NOVEL RESPIRATORY ISOLATION. PATIENT IS A/OX4, PRIMARILY DIVEHI SPEAKING, CONNECTED TO CONTINUOUS BEDSIDE MONITORS. PATIENT IS ON HIGH FLOW NASAL CANNULA AT 50L, FIO2 100%. PHYSICAL ASSESSMENT DONE-SEE INTERVENTIONS. IV NOTED TO RIGHT FOREARM 20G INTACT AND PATENT- SEE IV SPREAD SHEET.PATIENT IS ABLE TO SELF REPOSITION AND SELF PRONE. PATIENT WAS IN PRONE POSITION SINCE START OF SHIFT AND JUST NOW HAS REPOSITIONED TO SUPINE WITH HOB ELEVATED. PENDING FOR CONVALESCENT PLASMA, PATIENT AWARE. POC DISCUSSED AND ALL QUESTIONS ANSWERED. CALL LIGHT WITHIN REACH.
--- NOTE | 2019-10-25 23:45 | NUR ---
DESATURATION RT PAGED RE: PATIENT BEGAN T DESATURATE INTO HIGH 70'S, LOW 80'S. PATIENT SITTING IN HIGH FOWLERS POSITION WITH HIGH FLOW NASAL CANNULA 50L, FIO2 100%
--- NOTE | 2019-10-25 23:55 | NUR ---
RT MCNEAL AT BEDSIDE PLACING PATIENT ON CPAP
[2019-10-26] VITALS (11 sets, daily range): BP systolic 94–133; BP diastolic 55–90
[2019-10-26] MEDS: ACCU-CHEK COMFORT CURVE STRIP VI SCH ×4 (00:25→18:09)
[2019-10-26] MEDS: PIPERACILLIN-TAZOB 3.375GM 100 ML IV SCH ×4 (00:25→18:08)
[2019-10-26] MEDS: InsuLIN REG 1unit/0.01ml Soln (100units/ml) SC SCH ×4 (00:26→18:09)
--- NOTE | 2019-10-26 03:37 | NUR ---
DESATURATION PATIENT WOKE UP AND BEGAN PULLING ON CPAP FACE MASK. PATIENT WAS HEARD YELLING AND SCREAMING. PATIENT BEGAN TO DESATURATE IN LOW 80'S. RT IMMEDIATELY PAGED. THIS RN DONNED THE PROPER PPE BEFORE ENTERING ROOM. AFTER ENTERING ROOM, PATIENT APPEARED TO HAVE PULLED MASK COMPLETELY OFF. PATIENT EDUCATED TO LEAVE CPAP ON. CPAP PLACED ON PATIENT, SPO2 BEGAN TO RISE BACK INTO 90'S. RT ELIZABET ARRIVED AND ADJUSTED MASK TO FIT PATIENT MORE COMFORTABLY. SPO2 BACK TO 99%, PATIENT NOW TOLERATING WELL. PATIENT NOW COMFORTABLE.
[2019-10-26 05:31] LABS: Calcium 8.6 mg/dL (8.5-10.1); Potassium 3.7 mmol/L (3.5-5.1)
[2019-10-26] MEDS: FUROSEMIDE 20 MG/2 ML VIAL IV SCH ×2 (05:35→18:08)
[2019-10-26 05:39] LABS: BUN/Creatinine Ratio 16.7; CRP High Sensitivity 14.5 mg/dL (< 0.3)
[2019-10-26] MEDS: ALBUTEROL SULF HFA 90MCG INH 200DOSE IN SCH ×3 (06:00→22:35)
--- NOTE | 2019-10-26 06:30 | NUR ---
CPAP MASK OFF WHILE THIS RN WAS IN ANOTHER PATIENTS ROOM, PATIENT BEGAN TO DESATURATE IN 60'S. THIS RN QUICKLY DONNED PROPER PPE. UPON ARRIVING TO PATIENT ROOM, RT AT BEDSIDE PLACING CPAP ON PATIENT. PATIENT HAD COMPLETELY REMOVED CPAP MASK AND WAS DESATURATING QUICKLY. RT PLACED PATIENT BACK ON CPAP MASK. PATIENT SPO2 GRADUALLY WENT BACK UP TO HIGH 90'S AND SUSTAINED. PATIENT WAS EDUCATED NOT TO REMOVE MASK AT ANY TIME. PATIENT NODDED HEAD "YES" IN AGREEMENT.
--- NOTE | 2019-10-26 06:45 | NUR ---
CPAP OFF PATIENT KEEPS REMOVING CPAP MASK AND DESATURATING INTO LOW 70'S. PATIENT RE EDUCATED NOT TO TRY AND ADJUST CPAP MASK. PATIENT NODS IN AGREEMENT. CPAP PLACED BACK ON PATIENT WITH GOOD SEAL. SPO2 BACK TO 95%.
--- NOTE | 2019-10-26 07:02 | NUR ---
CLOSING PATIENT RESTING IN BED WITH CPAP IN PLACE FIO2 60%. CURRENT SPO2 97%, NO SOB OR DISTRESS AT THIS TIME. PATIENT CONNECTED TO CONTINUOUS BEDSIDE MONITORS. NO CALL FROM BLOOD BANK DURING SHIFT REGARDING CONVALESCENT PLASMA. STILL WAITING FOR PLASMA. WILL ENDORSE TO DAYSHIFT RN.
--- NOTE | 2019-10-26 07:45 | NUR ---
OPENING SHIFT NOTE Received report from NOC RN, Maria Fernanda. Assumed care of patient. Patient received lying in bed connected to bedside monitor with alarms in place. Patient is currently on Novel Respiratory Isolation for COVID-19. Patient is Wolof speaking, alert and with no s/s of distress noted and denies pain when asked. Patient currently on High flow O2 at 40L 65% after not being able to tolerate CPAP. Patient with PIV to right FA #20 with Zosyn antibiotic infusing. Patient using urinal and bedpan. Patient is awaiting to received convalescent plasma once released from blood bank, consents signed by patient. Bed is in lowest position, rails x2 up and call light/phone within reach. Updated on plan of care. Will continue to monitor q1hr/PRN.
--- NOTE | 2019-10-26 08:00 | NUR ---
FAMILY Called patient's daughter, Sana, back after she called during shift change. Updated family on patient status and addressed all questions asked at this time. Informed daughter of oxygen requirements and awaiting transfusion of convalescent plasma.
--- NOTE | 2019-10-26 08:00 | NUR ---
RESPIRATORY Patient's O2 sats dropping into the 70s. RT at bedside. Placed patient back on CPAP at 12 90%. Patient tolerating well. O2 sats 99% RR 29. Will continue to monitor.
[2019-10-26] MEDS: VANCOMYCIN 1GM/250ML 250 ML IV SCH ×2 (08:34→19:26)
--- NOTE | 2019-10-26 09:30 | NUR ---
MD Dr Moreno to see patient.
[2019-10-26] MEDS: ASCORBIC ACID 1,000 MG TAB PO SCH (10:00)
[2019-10-26] MEDS: ZINC SULFATE 220mg CAP or TAB PO SCH (10:00)
[2019-10-26] MEDS: CHOLECALCIFEROL (VITD3) 1,000UNIT=25mCg TAB PO SCH (10:00)
[2019-10-26] MEDS: DexAMETHasone SOD PHOS 4 MG/1ML SDV INJ IV SCH (10:00)
[2019-10-26] MEDS: AZITHROMYCIN 500MG/ 250ML 250 ML IV SCH (10:00)
[2019-10-26] MEDS: ENOXAPARIN SOD 40 MG/0.4 ML SYRINGE SC SCH ×2 (10:00→22:35)
[2019-10-26] MEDS: INSULIN 70/30 1unit/0.01ml Susp (100units/ml) SC SCH ×2 (10:00→22:44)
--- NOTE | 2019-10-26 10:10 | NUR ---
Nutrition Followup Note Wt 71.3kg Unable to speak to pt d/t to pt with COVID positive in COVID isolation. Pt with poor appetite aeb pt with inadequate po intake aeb pt with 25% po intake avg per RN nutrition doc. Consider adding ensure high protein TID for pt. Est Energy needs BW 71 [id number] kcals (25-27 kcal/kgBW), Est Protein needs: 71-78 gms/day (1.0-1.1 gm/kgBW). Will continue to monitor and reassess prn. Labs: Gluc 120H, Alb 2.5L BM: No BM noted in RN note Skin: BS 16 mod risk, full details in RN woundcare doc PES: Altered nutrition related lab values r.t current chronic medical conidtion aeb mod hypoalb, hyperglycemia, hypocalcemia Comments refer to CDE on DC 2) continue current plan of care Expected Outcomes/Goals: F/u mod 3-5 days
--- NOTE | 2019-10-26 12:30 | NUR ---
RESPIRATORY RT at bedside, patient taken off of CPAP and placed on high flow on 55L 100% so he can eat lunch. Patient's O2 sats ~94%. Will continue to monitor.
--- NOTE | 2019-10-26 14:05 | NUR ---
Respiratory note: TITRATED FIO2 TO 80% PT TOLERATING WELL. RN AWARE OF CHANGES.
--- NOTE | 2019-10-26 14:20 | NUR ---
MD Dr Moseley to see patient. aware that blood bank is awaiting delivery of convalescent plasma.
--- NOTE | 2019-10-26 18:46 | NUR ---
END OF SHIFT Patient resting in bed after eating dinner. Patient has been doing well on high flow oxygen at 55L 80% with O2 sats 92%. Patient with Zosyn infusing into right FA #20, 1010 vancomycin to be delayed until Zosyn is complete. Patient tolerated laying prone this afternoon. Family called and updated on patient status. Still awaiting to hear from blood bank regarding convalescent plasma. Report to be given to Maria Fernanda SPRINGER RN.
--- NOTE | 2019-10-26 19:25 | NUR ---
OPENING NOTE REPORT RECEIVED FROM RADHA RN. THIS IS A POSITIVE COVID PATIENT ON NOVEL RESPIRATORY ISOLATION. PATIENT IS A/OX4, SAMI SPEAKING, SITTING UP IN BED, CONNECTED TO CONTINUOUS BEDSIDE MONITORS. PATIENT IS ON HIGH FLOW NASAL CANNULA 55L, FIO2 80%, WITH SPO2 RANGING IN LOW 90'S AT THIS TIME. IV TO RIGHT FOREARM INTACT AND RUNNING ORDERED ZOSYN. WILL START A NEW LINE FOR 1900 VANCO. PHYSICAL ASSESSMENT DONE- SEE INTERVENTIONS. POC DISCUSSED AND ALL QUESTIONS ANSWERED. CALL LIGHT WITHIN REACH.
--- NOTE | 2019-10-26 19:40 | NUR ---
IV insertion IV access obtained, via clean sterile technique by inserting 22 gauge catheter at RIGHT HAND . IV secured properly. No trauma to site. Patient tolerated well.
--- NOTE | 2019-10-26 20:00 | NUR ---
[facility] STILL WAITING FOR BLOOD BANK TO RECEIVE CONVALESCENT PLASMA. CONSENT SIGNED BY PATIENT AND IN CHART. WILL ADMINISTER WHEN AVAILABLE.
[2019-10-26] MEDS ORDERED: ACETAMINOPHEN 650 mg PER 20 mL UD PO ONE (20:30)
[2019-10-26] MEDS ORDERED: diphenhdrAMINE HCL 50 MG/1 ML VL IV ONE (20:30)
[2019-10-26] MEDS ORDERED: methylPREDNISolone SOD SUCC 40 MG/ML VL IV ONE (20:30)
--- NOTE | 2019-10-26 20:45 | NUR ---
PRE MEDICATIONS TYLENOL, SOLU-MEDROL AND BENADRYL ADMINISTERED ORDERED BY MD PRE MEDICATION TREATMENT FOR PENDING ACTEMRA. PATIENT EDUCATED ON MEDICATIONS BEFORE ADMINISTRATION, ALL QUESTIONS ANSWERED. PATIENT TOLERATED WELL.
--- NOTE | 2019-10-26 20:56 | NUR ---
DESATURATION PATIENT SPO2 BEGAN DECREASING AND SUSTAINING BETWEEN 83-85%. FIO2 INCREASED ON HIGH FLOW NASAL CANNULA FROM 80 TO 90%. PATIENT STILL HAD TROUBLE WIT SPO2 SAYING AROUND 87%. FIO2 BUMPED UP TO 95% AT THIS TIME. PATIENT ENCOURAGED TO TAKE DEEP BREATHS. SPO2 NOW ABOVE 90% AND SUSTAINING. PATIENT STILL ON 55L.
[2019-10-26] MEDS ORDERED: TOCILIZUMAB 400 MG in SODIUM CHL 0.9% 80 ML IV ONE (21:00)
[2019-10-27] VITALS (13 sets, daily range): BP systolic 86–113; BP diastolic 51–73
[2019-10-27] MEDS: PIPERACILLIN-TAZOB 3.375GM 100 ML IV SCH ×4 (00:08→18:15)
[2019-10-27] MEDS: ACCU-CHEK COMFORT CURVE STRIP VI SCH ×4 (00:09→18:14)
[2019-10-27] MEDS: InsuLIN REG 1unit/0.01ml Soln (100units/ml) SC SCH ×4 (00:10→18:14)
--- NOTE | 2019-10-27 03:00 | NUR ---
DESATURATION PATIENT BEGAN DESATURATING BETWEEN 81-84% AND SUSTAINING. PATIENT SLEEPING, VISIBLE RISE AND FALL OF CHEST NOTED. NO SIGNS OF DISTRESS. RT PAGED TO PLACE PATIENT ON CPAP
--- NOTE | 2019-10-27 03:07 | NUR ---
RT AT BEDSIDE PLACING PATIENT ON CPAP
--- NOTE | 2019-10-27 04:25 | NUR ---
BACK ON HIGH FLOW PATIENT BECAME ANXIOUS, STARTING PULLING AT CPAP MASK. AFTER PROPER PPE DONNED, THIS RN WENT TO ASSESS PATIENT. PATIENT VERBALIZED THAT HE DID NOT FEEL ENOUGH "AIR" COMING IN THROUGH THE MASK. SPO2 95%, RESPIRATIONS 28. EDUCATED PATIENT THAT CPAP WAS WORKING PROPERLY AND OXYGENATION STATUS IS GOOD. PATIENT STILL NOT COOPERATIVE. RT PAGED. RT KULDIP PLACED PATIENT BACK ON HIGH FLOW 50L, FIO2 100%, SPO2 NOW AT 94%, PATIENT NOW MORE COMFORTABLE.
--- NOTE | 2019-10-27 04:25 | NUR ---
PT UNCOMFORTABLE ON CPAP AT THIS TIME AND REQUESTED TO BE PLACED ON HFNC. SETTINGS ARE 100% FIO2 AND 50L FLOW. SPO2 93%.
[2019-10-27] MEDS: VANCOMYCIN 1GM/250ML 250 ML IV SCH ×2 (05:07→15:00)
--- NOTE | 2019-10-27 05:39 | NUR ---
INCREASE ON HFNC PATIENT BEGAN TO DESAT TO 80% WHILE ON HIGH FLOW 50L, FIO2 100%. AFTER PROPER PPE DONNED, THIS RN ENTERED PATIENTS ROOM. PATIENT SLEEPING COMFORTABLY, NO SIGNS OF DISTRESS NOTED. FLOW RATE INCREASE TO 60L WITH LITTLE IMPROVEMENT. FLOW RATE NOW AT MAX 70L, FIO2 100%. OXYGEN SATURATION NOW AT 93%. PATIENT STILL RESTING COMFORTABLY WITHOUT ANY VISIBLE DISTRESS.
[2019-10-27] MEDS: FUROSEMIDE 20 MG/2 ML VIAL IV SCH ×2 (06:15→18:15)
[2019-10-27] MEDS: ALBUTEROL SULF HFA 90MCG INH 200DOSE IN SCH ×3 (06:15→23:10)
--- NOTE | 2019-10-27 06:54 | NUR ---
CLOSING PATIENT RESTING COMFORTABLY IN BED CONNECTED TO CONTINUOUS BEDSIDE MONITORS. PATIENT IS ON HIGH FLOW NASAL CANNULA 70L, FIO2 100% AND TOLERATING WELL. STILL AWAITING CONVALESCENT PLASMA. SPOKE WITH JUSTINE IN BLOOD BANK AT 0610, PLASMA HAS NOT YET BEEN DELIVERED. WILL ENDORSED CARE TO AM SHIFT JASSON MCBRIDE TO ASSUME CARE OF PATIENT.
--- NOTE | 2019-10-27 07:45 | NUR ---
OPENING SHIFT NOTE Received report from NOC RN, Maria Fernanda. Assumed care of patient. Patient received lying in bed connected to bedside monitor with alarms in place. Patient is currently on Novel Respiratory Isolation for COVID-19. Patient is Indonesian speaking, alert and with no s/s of distress noted and denies pain when asked. Patient currently on High flow O2 at 70L 100% after several hours of being able to tolerate CPAP throughout the night. Patient with PIV to right hand #22 with Zosyn antibiotic infusing and right FA #20 that is patent and saline locked. Patient using urinal and bedpan. Patient is awaiting to received convalescent plasma once received by blood bank, consents signed by patient. Bed is in lowest position, rails x2 up and call light/phone within reach. Updated on plan of care. Will continue to monitor q1hr/PRN.
[2019-10-27] MEDS ORDERED: ACETAMINOPHEN 650 mg PER 20 mL UD PO ONE (08:30)
[2019-10-27] MEDS ORDERED: methylPREDNISolone SOD SUCC 40 MG/ML VL IV ONE (08:30)
[2019-10-27] MEDS ORDERED: diphenhdrAMINE HCL 50 MG/1 ML VL IV ONE (08:30)
--- NOTE | 2019-10-27 08:30 | NUR ---
FAMILY T/C from patient's daughter, Sana. Verified password. Updated on patient status. All questions answered and addressed at this time.
[2019-10-27] MEDS ORDERED: TOCILIZUMAB 400 MG in SODIUM CHL 0.9% 80 ML IV ONE (09:00)
[2019-10-27] MEDS: DexAMETHasone SOD PHOS 4 MG/1ML SDV INJ IV SCH (10:00)
[2019-10-27] MEDS: INSULIN 70/30 1unit/0.01ml Susp (100units/ml) SC SCH ×2 (10:00→22:00)
[2019-10-27] MEDS: CHOLECALCIFEROL (VITD3) 1,000UNIT=25mCg TAB PO SCH (10:00)
[2019-10-27] MEDS: ZINC SULFATE 220mg CAP or TAB PO SCH (10:00)
[2019-10-27] MEDS: AZITHROMYCIN 500MG/ 250ML 250 ML IV SCH (10:00)
[2019-10-27] MEDS: ASCORBIC ACID 1,000 MG TAB PO SCH (10:00)
[2019-10-27] MEDS: ENOXAPARIN SOD 40 MG/0.4 ML SYRINGE SC SCH ×2 (10:00→22:00)
--- NOTE | 2019-10-27 10:00 | NUR ---
MEDICATIONS Provided patient with 1000 medications. Verified patient name and . Patient able to tolerate medications without difficulty.
--- NOTE | 2019-10-27 13:30 | NUR ---
[facility] Notified by RICKEY Garcias that plasma hasn't been delivered by [facility] yet due to unavailability of AB + plasma. Per blood bank, unlike other blood products, plasma needs to be type specific. Dr Moseley made aware of delay. RN to inform family when they call next.
--- NOTE | 2019-10-27 14:30 | NUR ---
FAMILY Patient's daughter called. Password verified. Updated on patient status and plan of care. Family aware of waiting for type specific plasma. All questions answered and addressed at this time.
--- NOTE | 2019-10-27 15:27 | NUR ---
RESPIRATORY Patient's O2 sats dropped to 74. Patient currently on high flow 70L 100%. Patient only able to get O2 sats to max 87%. RT Shanelle called. RT to place patient back on CPAP.
--- NOTE | 2019-10-27 15:35 | NUR ---
PT ON CPAP PT O2 SATS IN MID-80'S WITH HIGH FLOW ON MAXIMUM SETTINGS. PLACED PT ON CPAP +[id number], FIO2 90%. ALARMS SET AND AUDIBLE. PT LOWERED BED TO SUPINE POSITION, TOLERATING CPAP WELL, SPO2 MAINTAINING AT 94%. NO S/S OF DISTRESS. RN MADE AWARE OF CHANGES.
--- NOTE | 2019-10-27 18:47 | NUR ---
END OF SHIFT Patient resting in bed waiting to eat dinner once RT removes CPAP. Patient currently on CPAP 12 100%. Patient with Zosyn infusing into right hand #22, right FA#20. Family called and updated on patient status. Still awaiting to hear from blood bank regarding convalescent plasma, patient with AB+ blood type and [place] still doesn't have any plasma of that type available. Report to be given to Monika SPRINGER RN.
--- NOTE | 2019-10-27 19:45 | NUR ---
Opening Shift Note Received pt on c/pap but pt requested to be on high flow so he can eat. Pt did not tolerate being on high flow with increased WOB and desaturating to 80's with tachycardia. Pt did not eat dinner as he was to sob. Placed back on C/PAP. Pt recovered quickly. Full assessment done, see interventions. Pt denies pain. Verbalized understanding to call for assist. Call light within reach. Pt on covid-19 isolation precautions. All alarms on and audible. Will continue to monitor closely.
--- NOTE | 2019-10-27 21:30 | NUR ---
Family Phone call received from and password verified. All questions and concerns addressed at this time.
[2019-10-28] VITALS (14 sets, daily range): BP systolic 97–114; BP diastolic 62–73
[2019-10-28] MEDS: ACCU-CHEK COMFORT CURVE STRIP VI SCH ×4 (00:11→18:06)
[2019-10-28] MEDS: PIPERACILLIN-TAZOB 3.375GM 100 ML IV SCH ×4 (00:11→18:05)
[2019-10-28] MEDS: InsuLIN REG 1unit/0.01ml Soln (100units/ml) SC SCH ×4 (00:11→18:00)
--- NOTE | 2019-10-28 01:00 | NUR ---
When pt attempted to self prone, pt started to have a panic attack and was hyperventilating. Desaturated to 70's with respiratory rate in the 60's. HR 120's. Calmed pt down and put him in high fowlers position. Pt recovered slowly.
--- NOTE | 2019-10-28 02:51 | NUR ---
Respiratory note: TITRATED PT TO 80% FIO2 AT THIS TIME
[2019-10-28] MEDS: VANCOMYCIN 1GM/250ML 250 ML IV SCH ×2 (03:00→15:27)
[2019-10-28] MEDS: FUROSEMIDE 20 MG/2 ML VIAL IV SCH ×2 (06:02→18:05)
[2019-10-28] MEDS: ALBUTEROL SULF HFA 90MCG INH 200DOSE IN SCH ×3 (06:40→22:10)
--- NOTE | 2019-10-28 07:45 | NUR ---
OPENING SHIFT NOTE Received report from NOC RNMonika. Assumed care of patient. Patient received lying in bed connected to bedside monitor with alarms in place. Patient is currently on Novel Respiratory Isolation for COVID-19. Patient is Tajik speaking, alert and with no s/s of distress noted and denies pain when asked. Patient has been on CPAP throughout the night. Patient with PIV to right hand #22 with Zosyn antibiotic infusing and right FA #20 that is patent and saline locked. Patient using urinal and bedpan. Patient is still waiting to receive convalescent plasma once received by blood bank, consents signed by patient. Bed is in lowest position, rails x2 up and call light/phone within reach. Updated on plan of care. Will continue to monitor q1hr/PRN.
--- NOTE | 2019-10-28 08:45 | NUR ---
FAMILY Daughter Sana called. Password verified. Updated on patient status, overnight events and plan of care. All questions address at this time.
[2019-10-28] MEDS: DexAMETHasone SOD PHOS 4 MG/1ML SDV INJ IV SCH (10:00)
[2019-10-28] MEDS: CHOLECALCIFEROL (VITD3) 1,000UNIT=25mCg TAB PO SCH (10:00)
[2019-10-28] MEDS: ZINC SULFATE 220mg CAP or TAB PO SCH (10:00)
[2019-10-28] MEDS: ENOXAPARIN SOD 40 MG/0.4 ML SYRINGE SC SCH ×2 (10:00→22:42)
[2019-10-28] MEDS: INSULIN 70/30 1unit/0.01ml Susp (100units/ml) SC SCH ×2 (10:00→22:00)
[2019-10-28] MEDS: ASCORBIC ACID 1,000 MG TAB PO SCH (10:00)
--- NOTE | 2019-10-28 10:35 | NUR ---
MD Dr Moseley at bedside to see patient. No new orders received.
[2019-10-28] MEDS ORDERED: FAMOTIDINE 20 MG TAB PO ONE (15:00)
--- NOTE | 2019-10-28 17:00 | NUR ---
FAMILY Telephone call from daughterSana. Verified password. Updated on patient status. Answered all appropriate questions at this time.
--- NOTE | 2019-10-28 18:51 | NUR ---
END OF SHIFT Patient resting in bed on CPAP with no s/s distress noted. Patient currently on CPAP 12 100%. Patient with Zosyn infusing into right hand #22, right FA#20 patent and saline locked. No change on convalescent plasma, patient with AB+ blood type and [place] still doesn't have any plasma of that type available. Report to be given to Monique SPRINGER RN.
--- NOTE | 2019-10-28 20:00 | NUR ---
SHIFT OPENING NOTE RECEIVED PATIENT AWAKE, ALERT AND ORIENTED X4. ANXIOUS. ON CPAP 12, 100% FI02. RR 30'S. POX 90%. SOB NOTED BUT NO PAIN. ZOSYN INFUSING IN RIGHT HAND. PATIENT REFUSED DINNER. PHYSICAL ASSESSMENT COMPLETED, SEE INTERVENTIONS. INSTRUCTED ON POC AND TO CALL FOR ASSIST NEEDED. BED IS IN THE LOWEST POSITION WITH SIDE RAILS UP X2, CALL LIGHT IS WITHIN REACH.
--- NOTE | 2019-10-28 21:00 | NUR ---
LINENS CHANGED PARTIAL BATH PERFORMED WITH CHG WIPES. GOWN CHANGED. PARTIAL LINEN CHANGED. PATIENT REPOSITIONED. REMAINS ON CPAP.
--- NOTE | 2019-10-28 23:56 | NUR ---
SPOKE WITH FAMILY UPDATED THEM ON PATIENTS STATUS AND POC. VERBALIZED UNDERSTANDING.
[2019-10-29] VITALS (14 sets, daily range): BP systolic 98–110; BP diastolic 65–75
[2019-10-29] MEDS: ACCU-CHEK COMFORT CURVE STRIP VI SCH ×5 (00:31→23:11)
[2019-10-29] MEDS: PIPERACILLIN-TAZOB 3.375GM 100 ML IV SCH ×5 (00:31→23:11)
[2019-10-29] MEDS: InsuLIN REG 1unit/0.01ml Soln (100units/ml) SC SCH ×5 (00:33→23:13)
--- NOTE | 2019-10-29 03:00 | NUR ---
ROUNDS PATIENT LAYING IN BED SLEEPING. REMAINS ON CPAP 12, 100%. POX 88-91%. WILL CONTINUE TO CLOSELY MONITOR.
[2019-10-29 03:43] LABS: Basophils # (auto) 0 10 ^3/uL (0-0.2); Basophils % (auto) 0.1 % (0.0-2.0); Eosinophils # (auto) 0.7 10 ^3/uL (0-0.8); Eosinophils % (auto) 6.8 % (0.0-7.0); Hematocrit 49.7 % (41.0-53.0); Hemoglobin 16.9 g/dL (13.5-17.5); Lymphocytes # (auto) 0.5 10 ^3/uL (0.4-5.4); Lymphocytes % (auto) 5.1 % (10.0-50.0); Mean Corpuscular Hemoglobin 30.5 pg (28.0-32.0); Mean Corpuscular Hgb Conc. 34.1 g/dL (32.0-36.0); Mean Corpuscular Volume 89.6 fL (80.0-100.0); Monocytes # (auto) 0 10 ^3/uL (0-1.3); Monocytes % (auto) 0.3 % (0.0-12.0); Neutrophils # (auto) 9.4 10 ^3/uL (1.6-8.6); Neutrophils % (auto) 87.7 % (37.0-80.0); Nucleated Red Blood Cells % 0.2 %; Platelet Count (auto) 340 10^3/uL (140-450); Red Blood Cells 5.55 10^6/uL (4.5-5.90); Red Cell Distribution Width 13.1 % (11.8-14.3); White Blood Cell 10.7 10^3/uL (4.4-10.8)
[2019-10-29 04:02] LABS: Albumin 2.3 g/dL (3.4-5.0); Calcium 8.8 mg/dL (8.5-10.1); Potassium 3.4 mmol/L (3.5-5.1)
[2019-10-29 04:10] LABS: Bilirubin, Total 0.8 mg/dL (0.2-1.0); CRP High Sensitivity 5.6 mg/dL (< 0.3); Total Protein 7.8 g/dL (6.4-8.2)
[2019-10-29] MEDS: VANCOMYCIN 1GM/250ML 250 ML IV SCH ×2 (05:36→15:00)
[2019-10-29] MEDS: ALBUTEROL SULF HFA 90MCG INH 200DOSE IN SCH ×3 (06:00→21:46)
[2019-10-29] MEDS: FUROSEMIDE 20 MG/2 ML VIAL IV SCH (06:39)
--- NOTE | 2019-10-29 06:45 | NUR ---
END OF SHIFT PATIENT IS LAYING IN BED AWAKE, ON CPAP 12, 100% FI02 POX 90%. PERIODS OF ANXIETY NOTED. VS STABLE AT THIS TIME. WILL GIVE REPORT AND ENDORSE CARE TO THE DAY SHIFT RN.
--- NOTE | 2019-10-29 07:00 | NUR ---
REPORT RECEIVED FROM DATABASE MARKETING ANALYST NURSE. PATIENT RESTING IN BED AT THIS TIME. RESPIRATIONS EVEN BUT LABORED. NO SIGNS OF ACUTE DISTRESS NOTED. CALL LIGHT IN REACH, BED IN LOW POSITION. WILL CONTINUE TO MONITOR.
[2019-10-29] MEDS: INSULIN 70/30 1unit/0.01ml Susp (100units/ml) SC SCH ×2 (10:00→20:47)
[2019-10-29] MEDS: ENOXAPARIN SOD 40 MG/0.4 ML SYRINGE SC SCH ×2 (10:07→20:46)
[2019-10-29] MEDS: DexAMETHasone SOD PHOS 4 MG/1ML SDV INJ IV SCH (10:07)
--- NOTE | 2019-10-29 10:45 | NUR ---
PATIENT REFUSING TO TAKE PO MEDICATIONS AND BECOMES ANXIOUS WHEN ASKED QUESTIONS. PATIENT SHAKES HEAD AND TURNS AWAY WHEN ASKED QUESTIONS. WHEN ASKED IF IN PAIN HE SHAKES HIS HEAD NO. PATIENT SATURATIONS DECREASED TO 85%, UNABLE TO REMOVE MASK AT THIS TIME TO ADMINISTER PO MEDICATION. WILL ATTEMPT LATER TODAY.
--- NOTE | 2019-10-29 13:23 | NUR ---
DR BARRREA AT BEDSIDE TO ASSESS PATIENT AND DISCUSS PLAN OF CARE. ALL ORDERS NOTED IN CHART.
[2019-10-29] MEDS: FLORASTOR (S. BOULARDII) 250 MG CAP PO SCH (14:58)
[2019-10-29] MEDS: ZINC SULFATE 220mg CAP or TAB PO SCH (14:58)
[2019-10-29] MEDS: ASCORBIC ACID 1,000 MG TAB PO SCH (14:58)
[2019-10-29] MEDS: FAMOTIDINE 20 MG TAB PO SCH (14:58)
--- NOTE | 2019-10-29 14:58 | NUR ---
PATIENT TOOK MORNING MEDICATIONS
[2019-10-29] MEDS: POTASSIUM CHL 20MEQ/100ML 100 ML IV SCH ×2 (14:59→18:23)
[2019-10-29] MEDS: CHOLECALCIFEROL (VITD3) 1,000UNIT=25mCg TAB PO SCH (14:59)
--- NOTE | 2019-10-29 15:45 | NUR ---
Nutrition Followup Note Wt 71.3kg Unable to speak to pt d/t to pt with COVID positive in COVID isolation. Pt po intake has improved aeb pt with 75% po intake 10/26-10/27 per RN note. Will continue to monitor po intake Est Energy needs BW 71 [id number] kcals (25-27 kcal/kgBW), Est Protein needs: 71-78 gms/day (1.0-1.1 gm/kgBW). Will continue to monitor and reassess prn. Labs: BUN 34H, Creat 1.31H, Alb 2.3L, GLUC 125H BM: 2 BMs noted 10/26 per RN note Skin: BS 16 mod risk, full details in RN woundcare doc PES: Altered nutrition related lab values r.t current chronic medical conidtion aeb mod hypoalb, hyperglycemia, hypocalcemia Comments refer to CDE on DC 2) continue current plan of care Expected Outcomes/Goals: F/u mod 3-5 days
--- NOTE | 2019-10-29 16:05 | NUR ---
IV removal Patient complained of discomfort to right forearm, with no noted redness or swelling.IV DC'd to right forearm with clean sterile technique, catheter fully intact. Pressure dressing applied to site. Patient tolerated well.
--- NOTE | 2019-10-29 18:15 | NUR ---
DR MCNALLY AT BEDSIDE TO ASSESS PATIENT AND DISCUSS PLAN OF CARE. PER MD ORDER RENDESVIMIR IVPB TREATMENT.
--- NOTE | 2019-10-29 18:15 | NUR ---
PATIENT ASSISTED UP TO CHAIR WITH TWO NURSES. PATIENT SATURATIONS 82%. ONCE PATIENT SLOWED RESPIRATORY RATE SATURATIONS INCREASED TO 86%. WILL CONTINUE TO MONITOR.
[2019-10-29] MEDS: FUROSEMIDE 40 MG/4 ML VIAL IV SCH (18:23)
--- NOTE | 2019-10-29 19:07 | NUR ---
PATIENT ASSISTED TO COMMODE PRIOR TO RETURNING TO BED. PATIENT TOLERATED WELL. INCREASED RR AND SATURATIONS DECREASED INITIALLY BUT IMPROVED WHILE RN AT BEDSIDE. RESPIRATORY THERAPIST AT BEDSIDE WELL TO MONITOR PATIENT.
--- NOTE | 2019-10-29 20:00 | NUR ---
SHIFT OPENING NOTE RECEIVED PATIENT AWAKE, ALERT AND ORIENTED X4. ANXIOUS. ON CPAP 12, 100% FI02. RR 30'S. POX 90%. SOB NOTED BUT NO PAIN. ZOSYN INFUSING IN RIGHT HAND. PHYSICAL ASSESSMENT COMPLETED, SEE INTERVENTIONS. INSTRUCTED ON POC AND TO CALL FOR ASSIST NEEDED. BED IS IN THE LOWEST POSITION WITH SIDE RAILS UP X2, CALL LIGHT IS WITHIN REACH.
[2019-10-30] VITALS (11 sets, daily range): BP systolic 82–100; BP diastolic 50–70
--- NOTE | 2019-10-30 01:50 | NUR ---
ROUNDS PATIENT LAYING IN BED SLEEPING. REMAINS ON CPAP 12, 100%. POX 89-91%. WILL CONTINUE TO CLOSELY MONITOR.
[2019-10-30 03:26] LABS: Basophils # (auto) 0 10 ^3/uL (0-0.2); Basophils % (auto) 0.1 % (0.0-2.0); Eosinophils # (auto) 0.4 10 ^3/uL (0-0.8); Eosinophils % (auto) 3.8 % (0.0-7.0); Hematocrit 48.5 % (41.0-53.0); Hemoglobin 16.7 g/dL (13.5-17.5); Lymphocytes # (auto) 0.6 10 ^3/uL (0.4-5.4); Lymphocytes % (auto) 6.2 % (10.0-50.0); Mean Corpuscular Hemoglobin 31.1 pg (28.0-32.0); Mean Corpuscular Hgb Conc. 34.5 g/dL (32.0-36.0); Monocytes # (auto) 0.2 10 ^3/uL (0-1.3); Monocytes % (auto) 2.5 % (0.0-12.0); Neutrophils # (auto) 8.4 10 ^3/uL (1.6-8.6); Neutrophils % (auto) 87.4 % (37.0-80.0); Nucleated Red Blood Cells % 0.1 %; Platelet Count (auto) 294 10^3/uL (140-450); Red Blood Cells 5.39 10^6/uL (4.5-5.90); Red Cell Distribution Width 13.1 % (11.8-14.3); White Blood Cell 9.6 10^3/uL (4.4-10.8)
[2019-10-30 03:48] LABS: Albumin 2.2 g/dL (3.4-5.0); BUN/Creatinine Ratio 30.2; Calcium 8.8 mg/dL (8.5-10.1); Potassium 3.3 mmol/L (3.5-5.1)
[2019-10-30 03:57] LABS: Bilirubin, Total 0.7 mg/dL (0.2-1.0); Total Protein 7.3 g/dL (6.4-8.2)
[2019-10-30] MEDS: PIPERACILLIN-TAZOB 3.375GM 100 ML IV SCH (05:10)
[2019-10-30] MEDS: ACCU-CHEK COMFORT CURVE STRIP VI SCH ×4 (05:10→23:56)
[2019-10-30] MEDS: FUROSEMIDE 40 MG/4 ML VIAL IV SCH (05:10)
[2019-10-30] MEDS: InsuLIN REG 1unit/0.01ml Soln (100units/ml) SC SCH ×4 (05:10→23:57)
--- NOTE | 2019-10-30 06:40 | NUR ---
END OF SHIFT PATIENT IS LAYING IN BED WITH EYES CLOSED, ON CPAP 12, 100% FI02 POX 90%. PERIODS OF ANXIETY NOTED THROUGHOUT THE NIGHT. VITAL SIGNS STABLE AT THIS TIME. WILL GIVE REPORT AND ENDORSE CARE TO THE DAY SHIFT RN.
[2019-10-30] MEDS: ALBUTEROL SULF HFA 90MCG INH 200DOSE IN SCH ×3 (06:46→22:00)
--- NOTE | 2019-10-30 07:30 | NUR ---
REPORT REPORT RECEIVED FROM VIJI RNALEJANDRINA. ABLE TO VISUALIZE PT THROUGH GLASS SLIDING DOORS. . NO DISTRESS NOTED. CONTINUE TO MONITOR.
--- NOTE | 2019-10-30 08:00 | NUR ---
NUTRITION/RT SPOKE WITH RT CAMPOS, INQUIRING WHETHER HE THOUGHT PT WAS STABLE TO GO TO HI FLOW TO ALLOW PT TO EAT BREAKFAST. HE WOULD LIKE TO WAIT AND OBSERVE PT FOR A WHILE PT HAD DESATURATION ISSUES WHEN PLLACED ON HI FLOW PREVIOUSLY. CONTINUE TO MONITOR.
[2019-10-30] MEDS ORDERED: POTASSIUM CHLORIDE 40 MEQ, LIDOCAINE 1% (LOCAL ANESTH.) 4 ML in SODIUM CHL 0.9% 100 ML IV ONE (10:30)
--- NOTE | 2019-10-30 10:30 | NUR ---
ASSESSMENT PT RESTIN GIN BED, IN ISOLATION FOR + COVID 19. PT YAKUT SPEAKING ONLY AND JASSON VALERIO, TRANSLATING FOR ME. PT WAKE AND A/O X4. ABLE TO FOLLOW SIMPLE COMMANDS. LUNGS CLEAR AND DIMINISHED THROUGHOUT. ON CPAP WITH PRESSURE OF 12 AND AT 100%. O2 SAT OF 95%. PALPABLE PULSES TO ALL EXTREMITIES WITH NO EDEMA NOTED. HELPS TO TURN SELF IN BED. ABD SOFT WITH + BOWEL SOUNDS. LAST BM WAS YESTERDAY. VOIDS VIA URINAL. TOOK MEDS WITH SIPS OF WATER WHILE HOLDING CPAP MASK IN FRONT OF FACE AND O2 SAT DOWN TO 79%. REAPPLIED AND O2 SAT UP TO 89%. TURNED FOR COMFORT. CONTINUE TO MONITOR.
[2019-10-30] MEDS: ASCORBIC ACID 1,000 MG TAB PO SCH (10:52)
[2019-10-30] MEDS: ENOXAPARIN SOD 40 MG/0.4 ML SYRINGE SC SCH ×2 (10:52→20:31)
[2019-10-30] MEDS: FAMOTIDINE 20 MG TAB PO SCH (10:52)
[2019-10-30] MEDS: CHOLECALCIFEROL (VITD3) 1,000UNIT=25mCg TAB PO SCH (10:53)
[2019-10-30] MEDS: DexAMETHasone SOD PHOS 10MG/1ML VIAL INJ IV SCH (10:53)
[2019-10-30] MEDS: FLORASTOR (S. BOULARDII) 250 MG CAP PO SCH (10:55)
[2019-10-30] MEDS: INSULIN 70/30 1unit/0.01ml Susp (100units/ml) SC SCH ×2 (11:11→20:35)
--- NOTE | 2019-10-30 12:30 | NUR ---
NUTRITION/RESPIRATORY SPOKE WITH RT CAMPOS, AND HE FEELS PT IS NOT STABLE ENOUGH TO SWITCH TO HI FLOW TO ALLOW PT TO EAT. CONTINUE TO MONITOR.
[2019-10-30] MEDS: ZINC SULFATE 220mg CAP or TAB PO SCH (13:45)
[2019-10-30] MEDS ORDERED: VANCOMYCIN 1GM/250ML 250 ML IV SCH (17:00)
--- NOTE | 2019-10-30 19:15 | NUR ---
RESPIRATORY SULMA, RT, PLACED PT ON HIFLOW O2 AT 100% WITH A 60L FLOW AND PT PLACED IN PRONING POSITION. . PT WITH O2 SAT OF 91% AND RR 26. PT TOOK ONE CONTAINER OF APPLESAUCE PRIOR TO GOING IN PRONE POSITION AND DIDN'T WANT ANYTHING ELSE TO EAT. CONTINUE TO MONITOR.
--- NOTE | 2019-10-30 19:20 | NUR ---
REPORT REPORT GIVEN TO ALEJANDRINA HALLMAN RN.
--- NOTE | 2019-10-30 20:00 | NUR ---
SHIFT OPENING NOTE RECEIVED PATIENT AWAKE, ALERT AND ORIENTED X4. LAYING IN A PRONE POSITION. ON HIGH FLOW NASAL CANNULA 70L, 100% FI02. RR 18. POX 93%. NO SOB OR PAIN NOTED. PHYSICAL ASSESSMENT COMPLETED, SEE INTERVENTIONS. INSTRUCTED ON POC AND TO CALL FOR ASSIST NEEDED. BED IS IN THE LOWEST POSITION WITH SIDE RAILS UP X2, CALL LIGHT IS WITHIN REACH.
[2019-10-31] VITALS (15 sets, daily range): BP systolic 91–106; BP diastolic 61–74
--- NOTE | 2019-10-31 | NUR ---
HYGIENE CARE FULL BED BATH PERFORMED WITH CHG WIPES. GOWN CHANGED. PARTIAL LINEN CHANGED. PATIENT REPOSITIONED FOR COMFORT. TOLERATED IT WELL.
[2019-10-31] MEDS: ACCU-CHEK COMFORT CURVE STRIP VI SCH ×4 (05:15→23:45)
[2019-10-31] MEDS: InsuLIN REG 1unit/0.01ml Soln (100units/ml) SC SCH ×4 (05:18→23:45)
--- NOTE | 2019-10-31 07:00 | NUR ---
END OF SHIFT PATIENT IS QUIETLY LAYING IN BED SLEEPING. NO SOB, DISTRESS OR PAIN NOTED. ON CPAP. WILL GIVE REPORT AND ENDORSE CARE TO THE DAY SHIFT RN.
[2019-10-31] MEDS: ALBUTEROL SULF HFA 90MCG INH 200DOSE IN SCH ×3 (07:02→23:05)
--- NOTE | 2019-10-31 07:30 | NUR ---
REPORT RECEIVED ASSUMING CARE ON CPAP IN BED VS STABLE NO DISTRESS NOTED
--- NOTE | 2019-10-31 08:30 | NUR ---
ASSESSMENT COMPLETED SEE INTERVENTIONS DENIES ANY PAIN, REQUESTING TO EAT BUT ON CPAP MASK. WILL NOTIFY RT.
--- NOTE | 2019-10-31 10:00 | NUR ---
UPDATED FAMILY ON PLAN OF CARE, ALL QUESTIONS/CONCERNS ADDRESSED
[2019-10-31] MEDS: CHOLECALCIFEROL (VITD3) 1,000UNIT=25mCg TAB PO SCH (10:41)
[2019-10-31] MEDS: ZINC SULFATE 220mg CAP or TAB PO SCH (10:42)
[2019-10-31] MEDS: ASCORBIC ACID 1,000 MG TAB PO SCH (10:42)
[2019-10-31] MEDS: FLORASTOR (S. BOULARDII) 250 MG CAP PO SCH (10:42)
[2019-10-31] MEDS: FAMOTIDINE 20 MG TAB PO SCH (10:42)
[2019-10-31] MEDS: DexAMETHasone SOD PHOS 10MG/1ML VIAL INJ IV SCH (10:42)
[2019-10-31] MEDS: ENOXAPARIN SOD 40 MG/0.4 ML SYRINGE SC SCH ×2 (10:43→20:56)
--- NOTE | 2019-10-31 10:45 | NUR ---
Respiratory note: PT TAKEN OFF BIPAP AND PLACED ON HFNC 60L/100% WITH JASSON BRO AT BEDSIDE FOR MEDS AND TO EAT. PT SEMI TOLERATED FOR ABOUT 10 MINUTES DESATURATED TO 77%-79%. PT PLACED BACK ON BIPAP AND NOTED IMPROVEMENT TO SATURATION. 88%-90%. JASSON BRO AWARE. WILL CONTINUE TO MONITOR.
[2019-10-31] MEDS: INSULIN 70/30 1unit/0.01ml Susp (100units/ml) SC SCH ×2 (11:00→20:56)
--- NOTE | 2019-10-31 17:04 | NUR ---
RESTING AT THIS TIME WITH NO S/S RESP DISTRESS SPO2 92% ON CPAP MASK
--- NOTE | 2019-10-31 17:38 | NUR ---
DR CONN AT BEDSIDE, AWARE PATIENT DID NOT TOLERATE CPAP COMING OFF THIS AM AND DESATTED TO 70'S. PAGED DR JOHN PER DR REQUEST DUE TO PATIENT NOT YET RECEIVED REMDESIVIR AND DR WANTS PATIENT TO RECEIVE IT. PAGED DR JOHN TO OBTAIN APPROVAL PER DR CONN REQUEST.
--- NOTE | 2019-10-31 18:40 | NUR ---
Respiratory note: TOOK PT OFF CPAP AND PLACED PT ON HFNC 50L 100% FIO2 SO PT CAN EAT. EXPLAINED TO PT HE WAS GOING TO HAVE TO GO BACK ON CPAP AFTER EATING. POX MAINTAIN AT 87%. RN AWARE OF CHANGES.
--- NOTE | 2019-10-31 20:00 | NUR ---
SHIFT OPENING NOTE RECEIVED PATIENT AWAKE, ALERT AND ORIENTED X4. LAYING IN BED CALMLY. ON CPAP 123, 100% WITH POX 92%. NO SOB OR PAIN NOTED. PHYSICAL ASSESSMENT COMPLETED, SEE INTERVENTIONS. INSTRUCTED ON POC AND TO CALL FOR ASSIST NEEDED. BED IS IN THE LOWEST POSITION WITH SIDE RAILS UP X2, CALL LIGHT IS WITHIN REACH.
--- NOTE | 2019-10-31 21:33 | NUR ---
[facility] INFUSION STARTED.
--- NOTE | 2019-10-31 22:15 | NUR ---
UPDATED FAMILY ON PATIENTS STATUS AND POC.
--- NOTE | 2019-10-31 23:30 | NUR ---
CONVAL[facility] PLASMA INFUSION COMPLETED NO REACTIONS NOTED.
[2019-11-01] VITALS (13 sets, daily range): BP systolic 91–104; BP diastolic 54–66
--- NOTE | 2019-11-01 01:55 | NUR ---
ROUNDS PATIENT IS QUIETLY LAYING IN BED SLEEPING. NO SOB, DISTRESS OR PAIN NOTED. REMAINS ON CPAP 12, 100% FI02 POX 95%. WILL CONTINUE TO CLOSELY MONITOR.
[2019-11-01] MEDS: ACCU-CHEK COMFORT CURVE STRIP VI SCH ×4 (04:49→23:36)
[2019-11-01] MEDS: InsuLIN REG 1unit/0.01ml Soln (100units/ml) SC SCH ×4 (05:08→23:48)
[2019-11-01] MEDS: ALBUTEROL SULF HFA 90MCG INH 200DOSE IN SCH ×3 (06:31→22:19)
--- NOTE | 2019-11-01 07:00 | NUR ---
END OF SHIFT PATIENT IS QUIETLY LAYING IN BED SLEEPING. NO SOB, DISTRESS OR PAIN NOTED. ON CPAP 12 100% FI02. POX 93%. WILL GIVE REPORT AND ENDORSE CARE TO THE DAY SHIFT RN.
[2019-11-01] MEDS: ENOXAPARIN SOD 40 MG/0.4 ML SYRINGE SC SCH ×2 (10:51→21:57)
[2019-11-01] MEDS: ZINC SULFATE 220mg CAP or TAB PO SCH (10:51)
[2019-11-01] MEDS: ASCORBIC ACID 1,000 MG TAB PO SCH (10:51)
[2019-11-01] MEDS: CHOLECALCIFEROL (VITD3) 1,000UNIT=25mCg TAB PO SCH (10:51)
[2019-11-01] MEDS: FLORASTOR (S. BOULARDII) 250 MG CAP PO SCH (10:51)
[2019-11-01] MEDS: FAMOTIDINE 20 MG TAB PO SCH (10:51)
[2019-11-01] MEDS: DexAMETHasone SOD PHOS 10MG/1ML VIAL INJ IV SCH (10:52)
[2019-11-01] MEDS: INSULIN 70/30 1unit/0.01ml Susp (100units/ml) SC SCH ×2 (11:15→22:21)
[2019-11-01] MEDS ORDERED: ALPRAZolam 0.25 MG TAB PO ONE (12:30)
--- NOTE | 2019-11-01 12:38 | NUR ---
Resumed care at 0725, orders reviewed and ongoing assessments being done. Is Covid-19 positive and being treated for respiratory failure. Following isolation protocol per policy. Upon arrival awake and able to make needs known. Appears very depressed and tearful at times. Does become SOB upon exertion. Does try to participate with personal care. Able to brush teeth and fed self for breakfast. On CPAP at this time requiring Fio2 of 100%. During meals and administration of medication placed on High flow nasal cannula. On high flow pulse oximetry measuring 88% and during activity he dropped to 75% (Fio2 100%). Holding lunch for now, secondary to high oxygen requirement. Reoriented to plan of care and spent time in room for moral support. Dr. Moseley rounded at 1210. Discussed condition and plan of care. Made him aware that I had spoken to his daughter Clover earlier and she would appreciate him to call her. Forward her number to him [phone].
--- NOTE | 2019-11-01 15:14 | NUR ---
Nutrition Followup Note Wt 66.4 kg Unable to speak to pt d/t to pt with COVID positive in COVID isolation. pt is currently on CCHO 45 gm meal diet with inadequate PO of 0% x 4 per RN doc. per RN pt depressed not eating much Est Energy needs BW 71 [id number] kcals (25-27 kcal/kgBW), Est Protein needs: 71-78 gms/day (1.0-1.1 gm/kgBW). Will continue to monitor and reassess prn. Labs: NO new labs today 10/29: BUN 45 H, CREAT 1.49 H, GLU 144 H BM: 2 BMs noted 10/26 per RN note Skin: BS 16 mod risk, full details in RN woundcare doc. pt on Vit C ZN PES: Altered nutrition related lab values r.t current chronic medical conidtion aeb mod hypoalb, hyperglycemia, hypocalcemia Comments refer to CDE on DC 2) continue current plan of care Expected Outcomes/Goals: F/u mod 3-5 days
--- NOTE | 2019-11-01 18:58 | NUR ---
Stayed in room while he ate dinner. Can feed self but does desaturate during ADL's. Placed on high flow nasal cannula during meal and requires a Fio2 of 100%. Dropped as low as 65% during meal. Remains alert and appropriate with no changes in neuro status. Dr. Moreno in at 1800 discussed condition and plan of care.
--- NOTE | 2019-11-01 20:20 | NUR ---
Opening Shift Note Assumed care of patient. Patient is awake, Malian speaking but understands Kiswahili as well. Initially does not respond verbally just nods. When asked if I can hear his voice then he talked. No S/S of pain noted. On CPAP mask, FIO2 100%. HR and BP stable. IV at right hand - painful when flushed, inserted 7/10. IV discontinued and re-inserted a new one at left hand G22. Tolerated well. Full assessment done -refer interventions. Instructed on POC and to call for assist PRN, will continue to monitor for changes Q1hr and PRN.
--- NOTE | 2019-11-01 22:30 | NUR ---
FAMILY CALLED TALKED TO PATIENT'S DAUGHTER. CORRECT PASSWORD GIVEN. UPDATED HER OF PATIENT'S CONDITION. ALL QUESTIONS ANSWERED. VERBALIZED UNDERSTANDING. CALL TRANSFERRED TO PHONE INSIDE PATIENT'S ROOM SO THAT SHE CAN TALKED TO HER FATHER.
[2019-11-02] VITALS (11 sets, daily range): BP systolic 97–154; BP diastolic 58–80
--- NOTE | 2019-11-02 01:20 | NUR ---
PATIENT CALLED, WANTS TO DRINK. ASSISTED PATIENT DESATURATES LOW 82% THEN SLOWLY PICKS UP
--- NOTE | 2019-11-02 02:00 | NUR ---
RT DECREASED FIO2 TO 95%
--- NOTE | 2019-11-02 03:41 | NUR ---
DESATURATED PATIENT DESATURATED LOW 82% CCT DEBI INSIDE SOMETHING ON THE TUBING OF THE CPAP MASK POPPED OUT - PLACED BACK SATURATION SLOWLY PICKING UP WILL CONTINUE TO MONITOR
--- NOTE | 2019-11-02 04:10 | NUR ---
RE-ASSESS PATIENT'S SATS 92-93% PATIENT RESTING NOW WILL CONTINUE TO MONITOR
[2019-11-02] MEDS: InsuLIN REG 1unit/0.01ml Soln (100units/ml) SC SCH ×3 (05:34→18:04)
[2019-11-02] MEDS: ACCU-CHEK COMFORT CURVE STRIP VI SCH ×5 (05:34→18:02)
--- NOTE | 2019-11-02 06:26 | NUR ---
DESATURATION PATIENT'S SATS 86% WENT INSIDE THE ROOM THE CPAP MASK STRAP WAS PULLED OUT. ASKED PATIENT WHY DID HE TAKE IT OUT, HE JUST SHRUG HIS SHOULDERS PLACED BACK ON THE MASK, NEEDED TO RE-ADJUST SEVERAL TIMES THE LEAK WAS HIGH AND PATIENT DOES NOT FEEL THAT THERE IS ENOUGH FLOW. ASKED COLLEAGUE TO INTERPRET FOR ME. IT SEEMS PATIENT IS GETTING CONFUSED. RT IN THE UNIT. INFORMED HER OF THE HIGH LEAK ALARM EARLIER BUT NOW ITS BETTER. SATURATION PICKED UP TO 90-93% PATIENT HAS ABG THIS MORNING. WILL FOLLOW UP
--- NOTE | 2019-11-02 06:51 | NUR ---
RT INCREASED FIO2 100%
--- NOTE | 2019-11-02 07:00 | NUR ---
REPORT REPORT GIVEN TO AREN
[2019-11-02] MEDS: INSULIN 70/30 1unit/0.01ml Susp (100units/ml) SC SCH (10:00)
--- NOTE | 2019-11-02 10:05 | NUR ---
DR JOHN AT BEDSIDE DISCUSSED PATIENTS STATUS WITH PATIENT, NEW ORDERS PLACED
[2019-11-02] MEDS ORDERED: SERTRALINE HCL 50 MG TAB PO ONE (10:30)
[2019-11-02] MEDS ORDERED: FUROSEMIDE 20 MG TAB PO ONE (10:30)
[2019-11-02] MEDS ORDERED: DEXTROSE (50%) 50ML SYRG IV PRN (10:30)
[2019-11-02] MEDS ORDERED: BUDESONIDE (INHALATION) 0.5 MG/2 ML NEB NEB ONE (10:30)
--- NOTE | 2019-11-02 10:30 | NUR ---
PATIENT DID NOT TOLERATE HIGHFLOW PLACED PATIENT ON HIGHFLOW 60L, 100%Fi02 TO ADMINISTER PO MEDICATIONS AND WATER. PATIENT ABLE TO SWALLOW WITHOUT COMPLICATIONS, BUT OXYGEN SATURATIONS DECLINED TO LOW 80S. PATIENT PLACED BACK ON CPAP. PULSE OX READINGS 89-90%. WILL CONTINUE TO MONITOR
[2019-11-02] MEDS: CHOLECALCIFEROL (VITD3) 1,000UNIT=25mCg TAB PO SCH (10:36)
[2019-11-02] MEDS: FLORASTOR (S. BOULARDII) 250 MG CAP PO SCH (10:36)
[2019-11-02] MEDS: ZINC SULFATE 220mg CAP or TAB PO SCH (10:36)
[2019-11-02] MEDS: FAMOTIDINE 20 MG TAB PO SCH (10:36)
[2019-11-02] MEDS: DexAMETHasone SOD PHOS 10MG/1ML VIAL INJ IV SCH (10:36)
[2019-11-02] MEDS: ASCORBIC ACID 1,000 MG TAB PO SCH (10:36)
[2019-11-02] MEDS: ENOXAPARIN SOD 40 MG/0.4 ML SYRINGE SC SCH ×2 (10:37→22:15)
[2019-11-02] MEDS: ALBUTEROL SULF HFA 90MCG INH 200DOSE IN SCH ×3 (11:05→22:07)
--- NOTE | 2019-11-02 11:40 | NUR ---
PATIENTS DAUGHTER CALLED PROVIDED PASSWORD, UPDATED ON NEW RECOMMENDATIONS AND ORDERS MD MADE EARLIER. TRANSFERRED CALL TO PATIENTS ROOM.
[2019-11-02] MEDS ORDERED: methylPREDNISolone SOD SUCC 40 MG/ML VL IV ONE ×2 (12:45→17:15)
[2019-11-02] MEDS: Glucerna Carbsteady SHAKE Vanilla 8oz PO SCH ×2 (13:47→18:01)
--- NOTE | 2019-11-02 16:30 | NUR ---
DR MCNALLY AT BEDSIDE DISCUSSED PATIENTS STATUS, NEW ORDERS RECEIVED
[2019-11-02] MEDS ORDERED: diphenhdrAMINE HCL 50 MG/1 ML VL IV ONE (17:15)
[2019-11-02] MEDS ORDERED: ACETAMINOPHEN 650 mg PER 20 mL UD PO ONE (17:15)
[2019-11-02] MEDS ORDERED: TOCILIZUMAB 400 MG in SODIUM CHL 0.9% 80 ML IV ONE (17:30)
--- NOTE | 2019-11-02 18:38 | NUR ---
PATIENTS DAUGHTER CALLED FOR UPDATE PROVIDED PASSWORD. UPDATED ON CURRENT STATUS AND PLAN OF CARE.
--- NOTE | 2019-11-02 18:50 | NUR ---
PT PLACED ON HFNC WITH SETTINGS 60L FLOW AND 100% FIO2. CPAP IS ON STANDBY AT BEDSIDE.
[2019-11-02] MEDS: BUDESONIDE (INHALATION) 0.5 MG/2 ML NEB NEB SCH (22:08)
[2019-11-02] MEDS: methylPREDNISolone SOD SUCC 40 MG/ML VL IV SCH (22:13)
[2019-11-02] MEDS: LORazepam 0.5 MG TAB PO PRN (22:16)
[2019-11-03] VITALS (10 sets, daily range): BP systolic 101–123; BP diastolic 60–71
[2019-11-03] MEDS: INSULIN 70/30 1unit/0.01ml Susp (100units/ml) SC SCH ×3 (00:50→22:00)
[2019-11-03] MEDS: InsuLIN REG 1unit/0.01ml Soln (100units/ml) SC SCH ×4 (00:51→18:00)
[2019-11-03 04:01] LABS: Basophils # (auto) 0 10 ^3/uL (0-0.2); Eosinophils # (auto) 0 10 ^3/uL (0-0.8); Eosinophils % (auto) 0.2 % (0.0-7.0); Hematocrit 42.3 % (41.0-53.0); Hemoglobin 14.5 g/dL (13.5-17.5); Lymphocytes # (auto) 0.7 10 ^3/uL (0.4-5.4); Lymphocytes % (auto) 6.3 % (10.0-50.0); Mean Corpuscular Hemoglobin 30.6 pg (28.0-32.0); Mean Corpuscular Hgb Conc. 34.3 g/dL (32.0-36.0); Mean Corpuscular Volume 89.4 fL (80.0-100.0); Monocytes # (auto) 0.1 10 ^3/uL (0-1.3); Monocytes % (auto) 1.3 % (0.0-12.0); Neutrophils % (auto) 92.2 % (37.0-80.0); Platelet Count (auto) 171 10^3/uL (140-450); Red Blood Cells 4.73 10^6/uL (4.5-5.90); Red Cell Distribution Width 12.7 % (11.8-14.3); White Blood Cell 10.8 10^3/uL (4.4-10.8)
[2019-11-03 04:26] LABS: Albumin 2.4 g/dL (3.4-5.0); BUN/Creatinine Ratio 38.7; Calcium 8.8 mg/dL (8.5-10.1); Potassium 4.6 mmol/L (3.5-5.1)
[2019-11-03 04:29] LABS: Bilirubin, Total 0.6 mg/dL (0.2-1.0); Total Protein 6.5 g/dL (6.4-8.2)
[2019-11-03] MEDS: ACCU-CHEK COMFORT CURVE STRIP VI SCH ×8 (06:00→18:00)
[2019-11-03] MEDS: BUDESONIDE (INHALATION) 0.5 MG/2 ML NEB NEB SCH ×2 (06:56→22:00)
[2019-11-03] MEDS: ALBUTEROL SULF HFA 90MCG INH 200DOSE IN SCH ×3 (06:56→22:00)
--- NOTE | 2019-11-03 07:42 | NUR ---
Pt remained stable this shift when on cpap or hi flow but when on cpap for unknown reasons to him and also RN, pt would remove mask. Pt states he does not know why he keeps taking it off. Pt was given Ativan with PM meds to help relax him but still pt kept whipping mask off for unknown reason. Denies pain. Report given, care endorsed.
[2019-11-03] MEDS: Glucerna Carbsteady SHAKE Vanilla 8oz PO SCH ×3 (08:00→18:00)
--- NOTE | 2019-11-03 08:05 | NUR ---
PATIENT REMOVED CPAP MASK, DESATURATION RN ASSISTED PATIENT IN REAPPLYING CPAP. EDUCATED PATIENT NOT TO REMOVE HIMSELF AND IF HE NEEDED SOMETHING TO USE CALL LIGHT. PATIENT VERBALIZED UNDERSTANDING, STATED HE DID NOT KNOW WHY HE REMOVED. PATIENT WITHIN VIEW OF NURSES STATION AND CONNECTED TO BEDSIDE MONITORS. WILL CONTINUE TO MONITOR CLOSELY
--- NOTE | 2019-11-03 09:13 | NUR ---
PATIENTS DAUGHTER CALLED FOR UPDATE PROVIDED PASSWORD. UPDATED ON STATUS THROUGHOUT THE NIGHT. SHE STATED SHE WILL TRY TO CALL THIS AFTERNOON TO SEE IF SHE CAN SPEAK WITH HIM
[2019-11-03] MEDS: ENOXAPARIN SOD 40 MG/0.4 ML SYRINGE SC SCH (10:00)
[2019-11-03] MEDS: methylPREDNISolone SOD SUCC 40 MG/ML VL IV SCH ×2 (10:00→23:12)
[2019-11-03] MEDS: FLORASTOR (S. BOULARDII) 250 MG CAP PO SCH (10:00)
[2019-11-03] MEDS: ASCORBIC ACID 1,000 MG TAB PO SCH (10:00)
[2019-11-03] MEDS: SERTRALINE HCL 50 MG TAB PO SCH (10:00)
[2019-11-03] MEDS: FAMOTIDINE 20 MG TAB PO SCH (10:00)
[2019-11-03] MEDS: CHOLECALCIFEROL (VITD3) 1,000UNIT=25mCg TAB PO SCH (10:00)
[2019-11-03] MEDS: ZINC SULFATE 220mg CAP or TAB PO SCH (10:00)
--- NOTE | 2019-11-03 10:24 | NUR ---
HIGHFLOW PATIENT PLACED ON HIGHFLOW 60L, FI02 100%. PATIENT TOLERATING FAIR. PULSE OX SAT 88-90%. DR NDIAYE AND DR JOHN AWARE
--- NOTE | 2019-11-03 11:32 | NUR ---
PATIENTS DAUGHTER CALLED FOR UPDATE PROVIDED PASSWORD. UPDATED ON STATUS THROUGHOUT THE NIGHT. ADDRESSED CONCERNS
--- NOTE | 2019-11-03 11:35 | NUR ---
DR JOHN AT BEDSIDE DISCUSSED PLAN OF CARE WITH PATIENT. NEW ORDERS PLACED
[2019-11-03] MEDS ORDERED: POTASSIUM CHL 10 Meq TABLET PO ONE (11:45)
[2019-11-03] MEDS ORDERED: FUROSEMIDE 20 MG/2 ML VIAL IV ONE (11:45)
--- NOTE | 2019-11-03 11:45 | NUR ---
DESATURATION- CPAP PATIENTS PULSE OX MAINTAINING AT 86-88%. PATIENT PLACED ON CPAP AT PREVIOUS SETTINGS.
--- NOTE | 2019-11-03 15:24 | NUR ---
HIGHFLOW PATIENT REQUESTING TO BE PLACED ON HIGHFLOW, STATES CPAP IS MAKING HIS FACE SORE. PLACED ON HIGHFLOW 60L, 100%. PULSE OX SATURATIONS REMAINING 88-91%. NO DISTRESS NOTED WITHIN VIEW OF NURSES STATION. WILL CONTINUE TO MONITOR
[2019-11-03] MEDS ORDERED: ENOXAPARIN SOD 40 MG/0.4 ML SYRINGE SC SCH (22:00)
[2019-11-04] VITALS (11 sets, daily range): BP systolic 91–105; BP diastolic 51–69
[2019-11-04 04:35] LABS: BUN/Creatinine Ratio 37.5; Potassium 4.7 mmol/L (3.5-5.1)
[2019-11-04] MEDS: ACCU-CHEK COMFORT CURVE STRIP VI SCH ×8 (06:00→23:34)
[2019-11-04] MEDS: ALBUTEROL SULF HFA 90MCG INH 200DOSE IN SCH ×3 (06:18→21:42)
[2019-11-04] MEDS: BUDESONIDE (INHALATION) 0.5 MG/2 ML NEB NEB SCH ×2 (06:18→21:44)
[2019-11-04] MEDS: InsuLIN REG 1unit/0.01ml Soln (100units/ml) SC SCH ×5 (06:48→23:34)
--- NOTE | 2019-11-04 07:30 | NUR ---
REPORT RECEIVED FROM B2B OUTSIDE SALES REPRESENTATIVE NURSE. PATIENT RESTING IN BED AT THIS TIME. RESPIRATIONS EVEN AND UNLABORED ON CPAP. NO SIGNS OF ACUTE DISTRESS NOTED. CALL LIGHT IN REACH, BED IN LOW POSITION. WILL CONTINUE TO MONITOR.
--- NOTE | 2019-11-04 07:40 | NUR ---
Pt remains status unchanged. This shift was better than the previous night as far as taking off his Cpap mask. Pt rested more comfortably this shift. No S/S of distress. Denies pain. Report given, care endorsed.
[2019-11-04] MEDS: Glucerna Carbsteady SHAKE Vanilla 8oz PO SCH ×3 (08:00→18:18)
--- NOTE | 2019-11-04 08:00 | NUR ---
RESP PT TAKEN OFF CPAP AND PLACED ON HFNC 50L 100% FIO2. PT TOLERATING CHANGE WELL. RN DONTAE AWARE OF CHANGE.
[2019-11-04] MEDS ORDERED: ENOXAPARIN SOD 60 MG/0.6 ML SYRINGE SC ONE (09:39)
[2019-11-04] MEDS: methylPREDNISolone SOD SUCC 40 MG/ML VL IV SCH ×2 (09:43→23:36)
[2019-11-04] MEDS: ENOXAPARIN SOD 60 MG/0.6 ML SYRINGE SC SCH ×2 (09:44→23:37)
[2019-11-04] MEDS: ASCORBIC ACID 1,000 MG TAB PO SCH (09:45)
[2019-11-04] MEDS: ZINC SULFATE 220mg CAP or TAB PO SCH (09:45)
[2019-11-04] MEDS: FAMOTIDINE 20 MG TAB PO SCH (09:45)
[2019-11-04] MEDS: POTASSIUM CHL 10 Meq TABLET PO SCH (09:45)
[2019-11-04] MEDS: SERTRALINE HCL 50 MG TAB PO SCH (09:45)
[2019-11-04] MEDS: FUROSEMIDE 20 MG/2 ML VIAL IV SCH (09:45)
[2019-11-04] MEDS: FLORASTOR (S. BOULARDII) 250 MG CAP PO SCH (09:45)
[2019-11-04] MEDS: CHOLECALCIFEROL (VITD3) 1,000UNIT=25mCg TAB PO SCH (09:46)
[2019-11-04] MEDS: INSULIN 70/30 1unit/0.01ml Susp (100units/ml) SC SCH ×2 (10:00→22:00)
--- NOTE | 2019-11-04 10:30 | NUR ---
RESPIRATORY STATUS CHANGE PATIENT ATTEMPTED TO GET OUT OF BED ON HIS OWN. INSTRUCTED PATIENT NOT TO GET OUT OF BED WITHOUT ASSISTANCE, PATIENT VERBALIZED UNDERSTANDING. PATIENT SATURATIONS DECREASED TO 71%. PLACED PATIENT BACK IN BED AND INCREASED OXYGEN ON TO 70L 100%. SATURATIONS INCREASED TO 80'S, INFORMED RESPIRATORY THERAPIST. WILL CONTINUE TO MONITOR.
--- NOTE | 2019-11-04 12:06 | NUR ---
DR ZHENG AT BEDSIDE TO ASSESS PATIENT AND DISCUSS PLAN OF CARE. MD MADE AWARE OF PATIENTS INCREASED BLOOD SUGAR LEVELS . PER MD INCREASE TO MODERATE SCALE. ALL ORDERS NOTED IN CHART.
--- NOTE | 2019-11-04 14:59 | NUR ---
Nutrition Followup Note Wt 62.2 kg Unable to speak to pt d/t to pt with COVID positive in COVID isolation. pt is currently on CCHO 45 gm meal diet with inadequate PO of 34% avg po intake x 3 days per RN note. Pt intake is sporadic and often less than 50% consider adding Ensure HP 1 carton TID d/t to poor po intake. Est Energy needs BW 71 [id number] kcals (25-27 kcal/kgBW), Est Protein needs: 71-78 gms/day (1.0-1.1 gm/kgBW). Will continue to monitor and reassess prn. Labs: BUN 42H, GLUC 196H, Alb 2.4L BM: 1 BM noted 11/02 per RN note Skin: BS 16 mod risk, full details in health careers instructor doc. pt on Vit C ZN PES: Altered nutrition related lab values r.t current chronic medical condition aeb mod hypoalb, hyperglycemia, hypocalcemia Comments Consider adding Ensure HP 1 carton TID 1)refer to CDE on DC 2) continue current plan of care Expected Outcomes/Goals: F/u mod 3-5 days
--- NOTE | 2019-11-04 17:30 | NUR ---
Midline Placement: Patient educated on need for midline placement. All risks and benefits explained and all questions and concerns addresses prior to procedure. 20g/8cm midline inserted via RIGHT BRACHIAL vein using Ultrasound. Sterile technique utilized. Blood return obtained from THE lumen and flushed easily with NS using proper technique. Midline secured with saline lock; biodisc and occlusive dressing applied. Primary RN notified. Midline lot # [id number].
--- NOTE | 2019-11-04 19:04 | NUR ---
Respiratory note: HIGH FLOW SETTINGS INCREASED TO 60L DUE TO LOW SPO2, SATS IMPROVED TO 92%.
[2019-11-05] VITALS (9 sets, daily range): BP systolic 102–148; BP diastolic 54–86
[2019-11-05] MEDS: ACCU-CHEK COMFORT CURVE STRIP VI SCH ×4 (06:23→23:27)
[2019-11-05] MEDS: InsuLIN REG 1unit/0.01ml Soln (100units/ml) SC SCH ×4 (06:24→23:27)
[2019-11-05] MEDS: ALBUTEROL SULF HFA 90MCG INH 200DOSE IN SCH ×3 (06:56→22:53)
[2019-11-05] MEDS: BUDESONIDE (INHALATION) 0.5 MG/2 ML NEB NEB SCH ×2 (06:57→22:53)
--- NOTE | 2019-11-05 06:57 | NUR ---
Respiratory note: PT AWAKE, AND ALERT. NO RESPIRATORY DISTRESS NOTED. SPO2 90% ON HFNC 60L 100% FIO2, HR 70, RR 20, BS CLEAR/DIMINISHED BILATERALLY. PT GIVEN 1 PUFF ALBUTEROL (90MCG) VIA MDI WITH CHAMBER, WELL 2 PUFFS PULMICORT (360MCG) VIA MDI. NO ADVERSE EFFECTS NOTED. NO FURTHER RESPIRATORY INTERVENTION NOTED. CHARTING COMPLETE FROM OUTSIDE OF PT ROOM PER COVID-19 PRECAUTIONS/PROTOCOL.
--- NOTE | 2019-11-05 07:00 | NUR ---
PT PLACED ON HFNC 60L, 100% FIO2 TO EAT BREAK FAST. PT TOLERATING CHANGE WELL. RN AWARE. WILL CONTINUE TO MONITOR PT.
--- NOTE | 2019-11-05 07:06 | NUR ---
Pt remained stable this shift. No S/S of distress. Put on Cpap for night time sleep. Tolerated well. Rested well. Report given, care endorsed.
[2019-11-05] MEDS: Glucerna Carbsteady SHAKE Vanilla 8oz PO SCH ×3 (08:00→17:56)
--- NOTE | 2019-11-05 09:30 | NUR ---
PATIENT DESATING ON HIGH FLOW OXYGEN, PUT PATIENT ON CPAP. PATIENT DESATURATED TO 78%, CURRENTLY 88% ON 100% FIO2.
--- NOTE | 2019-11-05 09:35 | NUR ---
FAMILY CALLED TALKED TO PATIENT'S DAUGHTER NELI. CORRECT PASSWORD GIVEN. UPDATED HER OF PATIENT'S CONDITION. ALL QUESTIONS ANSWERED. VERBALIZED UNDERSTANDING. STATES SHE WILL CALL BACK AROUND 2 PM TO TALK TO HER DAD.
[2019-11-05] MEDS: FUROSEMIDE 20 MG/2 ML VIAL IV SCH (10:11)
[2019-11-05] MEDS: SERTRALINE HCL 50 MG TAB PO SCH (10:12)
[2019-11-05] MEDS: CHOLECALCIFEROL (VITD3) 1,000UNIT=25mCg TAB PO SCH (10:12)
[2019-11-05] MEDS: ZINC SULFATE 220mg CAP or TAB PO SCH (10:12)
[2019-11-05] MEDS: POTASSIUM CHL 10 Meq TABLET PO SCH (10:12)
[2019-11-05] MEDS: FLORASTOR (S. BOULARDII) 250 MG CAP PO SCH (10:12)
[2019-11-05] MEDS: ASCORBIC ACID 1,000 MG TAB PO SCH (10:12)
[2019-11-05] MEDS: ENOXAPARIN SOD 60 MG/0.6 ML SYRINGE SC SCH ×2 (10:12→22:00)
[2019-11-05] MEDS: methylPREDNISolone SOD SUCC 40 MG/ML VL IV SCH ×2 (10:12→22:00)
[2019-11-05] MEDS: FAMOTIDINE 20 MG TAB PO SCH (10:12)
[2019-11-05] MEDS: INSULIN 70/30 1unit/0.01ml Susp (100units/ml) SC SCH ×2 (10:13→22:00)
--- NOTE | 2019-11-05 10:35 | NUR ---
Respiratory note: PT PLACED BACK ON CPAP 12CM H20 DUE TO PT DESATURATIONS IN LOW 7 Addendum: 11/05/19 at 1653 by RT SHANDA RT DUE TO PT DESATURATIONS IN LOW 70'S. PT TOLERATING CHANGE WELL. WILL CONTINUE TO MONITOR PT.
[2019-11-05] MEDS ORDERED: FUROSEMIDE 20 MG/2 ML VIAL ONE (11:11)
[2019-11-05] MEDS ORDERED: FUROSEMIDE 20 MG/2 ML VIAL IV ONE (11:15)
[2019-11-05] MEDS ORDERED: POTASSIUM CHL 10 Meq TABLET PO ONE (11:15)
[2019-11-05] MEDS ORDERED: LORazepam 2MG/ML-1ML VIAL ONE (11:49)
[2019-11-05] MEDS ORDERED: LORazepam 2MG/ML-1ML VIAL IV ONE (12:00)
--- NOTE | 2019-11-05 15:25 | NUR ---
Respiratory note: LM FOR DR JOHN TO RETURN MY CALL REGARDING PT CRITICAL ABG VALUES. RN AWARE.
--- NOTE | 2019-11-05 15:35 | NUR ---
SPOKE WITH DR. JOHN REGARDING PATIENTS ABG AND FACT THAT PATIENT IS PULLING OFF TUBING CONNECTED TO CPAP. NEW ORDER TO GIVE HALDOL X 1 DOSE, START PATIENT ON BI PAP AND IF PATIENT CONTINUES TO DE SAT INTUBATE PATIENT PER PROTOCOL.
--- NOTE | 2019-11-05 15:35 | NUR ---
Respiratory note: PT PLACED ON BIPAP PER DR JOHN ORDER DUE TO CRITICAL ABG VALUES. BIPAP 12/ BUR 14 FIO2 100%. RN AWARE. WILL CONTINUE TO MONITOR PT.
[2019-11-05] MEDS ORDERED: HALOPERIDOL LACTATE 5 MG/ML INJ VIAL IV ONE (15:45)
[2019-11-06] VITALS (15 sets, daily range): BP systolic 97–125; BP diastolic 60–78
--- NOTE | 2019-11-06 00:38 | NUR ---
Pt seemed to be struggling with Bipap, ABG ordered and Carrero was paged to report result. Pt now relaxed and Resp 25, O2 88%, HR 95. Will continue to monitor.
--- NOTE | 2019-11-06 01:00 | NUR ---
ABG reported to hospitalist. New order for ABG in AM to follow up and assess. Will continue to monitor.
--- NOTE | 2019-11-06 04:00 | NUR ---
Attempted to give water, O2 sat dropped to 69%.
[2019-11-06] MEDS: InsuLIN REG 1unit/0.01ml Soln (100units/ml) SC SCH ×3 (06:00→17:05)
[2019-11-06] MEDS: ALBUTEROL SULF HFA 90MCG INH 200DOSE IN SCH ×3 (06:07→22:10)
[2019-11-06] MEDS: ACCU-CHEK COMFORT CURVE STRIP VI SCH ×3 (06:10→17:04)
[2019-11-06] MEDS: BUDESONIDE (INHALATION) 0.5 MG/2 ML NEB NEB SCH ×2 (06:31→22:10)
--- NOTE | 2019-11-06 06:49 | NUR ---
Pt remains stable, no longer seems confused, following commands and leaving bipap mask on and in place. Pt tried to use urinal and seems as if no longer having incontinent issue due to confusion. No S/S of distress. Linens changed and bed bath given.
--- NOTE | 2019-11-06 06:51 | NUR ---
Resp 23, O2 93%, HR 91, BP 105/71, VS stable.
--- NOTE | 2019-11-06 07:27 | NUR ---
Pt has bad reaction to Ativan, RN listed as allergy.
--- NOTE | 2019-11-06 07:30 | NUR ---
OPENING NOTE RECEIVED REPORT FROM AREN SPAULDING. NO S/S OF DISTRESS NOTED ON THE PATIENT. BED IS LOCKED AT LOWEST POSITION AND SIDE RAILS UPX2. PATIENT CONTINUES ON BIPAP AT 100% FIO2. WILL CONTINUE TO MONITOR.
[2019-11-06] MEDS: Glucerna Carbsteady SHAKE Vanilla 8oz PO SCH ×3 (08:19→17:03)
[2019-11-06] MEDS: ENOXAPARIN SOD 60 MG/0.6 ML SYRINGE SC SCH ×2 (09:23→21:40)
[2019-11-06] MEDS: methylPREDNISolone SOD SUCC 40 MG/ML VL IV SCH ×2 (09:23→21:40)
[2019-11-06] MEDS: POTASSIUM CHL 10 Meq TABLET PO SCH (09:24)
[2019-11-06] MEDS: FAMOTIDINE 20 MG TAB PO SCH (09:24)
[2019-11-06] MEDS: ZINC SULFATE 220mg CAP or TAB PO SCH (09:24)
[2019-11-06] MEDS: FLORASTOR (S. BOULARDII) 250 MG CAP PO SCH (09:24)
[2019-11-06] MEDS: ASCORBIC ACID 1,000 MG TAB PO SCH (09:24)
[2019-11-06] MEDS: CHOLECALCIFEROL (VITD3) 1,000UNIT=25mCg TAB PO SCH (09:25)
[2019-11-06] MEDS: SERTRALINE HCL 50 MG TAB PO SCH (09:25)
[2019-11-06] MEDS: INSULIN 70/30 1unit/0.01ml Susp (100units/ml) SC SCH ×2 (09:25→22:00)
--- NOTE | 2019-11-06 09:45 | NUR ---
DAUGHTER OTP UPDATED PT STATUS AND POC. ALL QUESTIONS ANSWERED.
[2019-11-06] MEDS ORDERED: FUROSEMIDE 20 MG/2 ML VIAL IV SCH (10:00)
--- NOTE | 2019-11-06 12:40 | NUR ---
DR GUTIERREZ AT BEDSIDE UPDATED PT STATUS AND POC. ORDERS RECEIVED TO INCREASE IPAP TO 15. RT NOTIFIED AND ORDERS IMPLEMENTED. WILL CONTINUE TO MONITOR.
--- NOTE | 2019-11-06 12:50 | NUR ---
RT NOTE: IPAP INCREASED TO 15 PER ALVARO. RN AWARE. WILL CONTINUE TO MONITOR.
--- NOTE | 2019-11-06 12:51 | NUR ---
OXYGENATION BIPAP CHANGED TO RATE OF 14, 15/8. CHANGES MADE BY Khalida HERNÁNDEZ. CONTINUE CARE. PER DR. JOHN.
[2019-11-06] MEDS ORDERED: CLINIMIX PER PHARMACY 0 ML IV SCH (13:00)
[2019-11-06 15:18] LABS: Calcium 9.3 mg/dL (8.5-10.1); Magnesium 2.9 mg/dL (1.6-2.6); Potassium 4.1 mmol/L (3.5-5.1)
[2019-11-06 15:22] LABS: BUN/Creatinine Ratio 41.4; Bilirubin, Total 0.7 mg/dL (0.2-1.0); Phosphorus 5.3 mg/dL (2.5-4.90); Pre Albumin 34.1 mg/dL (20.0-40.0); Total Protein 7.3 g/dL (6.4-8.2)
--- NOTE | 2019-11-06 16:40 | NUR ---
DR. MCNALLY AT BEDSIDE: ORDERS MD UPDATED ON PT'S CURRENT STATUS, LABS AND POC FOR TODAY. ORDERS GIVEN AND TO BE CARRIED OUT. CONTINUE CARE.
--- NOTE | 2019-11-06 18:42 | NUR ---
DAUGHTER OTP UPDATED ON PT STATUS AND POC. ALL QUESTIONS ANSWERED.
[2019-11-06] MEDS ORDERED: AMINO ACID INFUSION IN D5W 2,000 ML IV NR (20:00)
[2019-11-07] VITALS (13 sets, daily range): BP systolic 104–124; BP diastolic 66–86
[2019-11-07] MEDS: ACCU-CHEK COMFORT CURVE STRIP VI SCH ×4 (00:19→18:12)
[2019-11-07 05:29] LABS: Albumin 2.9 g/dL (3.4-5.0); Calcium 8.8 mg/dL (8.5-10.1); Magnesium 2.8 mg/dL (1.6-2.6)
[2019-11-07 05:32] LABS: Bilirubin, Total 0.8 mg/dL (0.2-1.0); Phosphorus 3.6 mg/dL (2.5-4.90); Total Protein 7.1 g/dL (6.4-8.2)
[2019-11-07] MEDS: InsuLIN REG 1unit/0.01ml Soln (100units/ml) SC SCH ×4 (06:55→18:12)
[2019-11-07] MEDS: Glucerna Carbsteady SHAKE Vanilla 8oz PO SCH ×3 (08:00→18:00)
--- NOTE | 2019-11-07 08:07 | NUR ---
Noted pt has deep dark area on bridge of nose. Picture taken, will put in order for wound care. RT came and put a different mask that goes more under the nose for the bipap and is under the darkened area instead of on top. Pt alert and oriented. Denies pain although the old bipap mask hurts when being removed. Report given to am shift, care endorsed.
--- NOTE | 2019-11-07 10:00 | NUR ---
DR. ALVARO IZQUIERDO, ASSESSING PT. UPDATED MD ON PT'S HIGH RISK FOR ASPIRATION, PT UNABLE TO SWALLOW PILLS ALL CRUSHED UP IN APPLE SAUCE. IT TOOK PT ALMOST ONE HOUR WITH ASPIRATION PRECAUTIONS TO SWALLOW PILLS WITH BIPAP MACHINE OFF FOR A MINUTE WHILE PT SWALLOW THE PILLS, SPO2 DROPPED ALL THE WAY TO THE 70'S THEN IT TOOK PT A WHILE TO RECOVER , TWO HOURS. SPO2 REMAINED IN THE LOW TO MID 80'S FOR 2 HOURS THEN SLOWLY WENT UP TO THE UPPER 8O'S TO LOW 90'S.
--- NOTE | 2019-11-07 10:00 | NUR ---
AM ASSESSMENT COMPLETED A+O X4 PT GETS S.O.B WITH EXERTION CURRENTLY ON BIPAP 03/25 AT 100% FIO2 LS CTA DIMINISH ON THE BASIS AND DIMINISHED ON THE POSTERIOR BASIS. PT ON AIRBORNE ISOLATION FOR COVID 19. ONE SWAB RE-TEST CAME BACK NEGATIVE WAITING FOR 2ND RE-TEST. EDUCATED PT. ON POC. PT VERBALIZED UNDERSTANDING.
[2019-11-07] MEDS: CHOLECALCIFEROL (VITD3) 1,000UNIT=25mCg TAB PO SCH (10:15)
[2019-11-07] MEDS ORDERED: TPN PER PHARMACY 0 ML IV SCH (10:15)
[2019-11-07] MEDS: BUDESONIDE (INHALATION) 0.5 MG/2 ML NEB NEB SCH ×2 (10:17→22:38)
[2019-11-07] MEDS ORDERED: methylPREDNISolone SOD SUCC 40 MG/ML VL ONE (10:17)
[2019-11-07] MEDS: ALBUTEROL SULF HFA 90MCG INH 200DOSE IN SCH ×3 (10:17→22:38)
[2019-11-07] MEDS: FAMOTIDINE 20 MG TAB PO SCH (10:18)
[2019-11-07] MEDS: POTASSIUM CHL 10 Meq TABLET PO SCH (10:18)
[2019-11-07] MEDS: ASCORBIC ACID 1,000 MG TAB PO SCH (10:18)
[2019-11-07] MEDS: ZINC SULFATE 220mg CAP or TAB PO SCH (10:18)
[2019-11-07] MEDS: ENOXAPARIN SOD 60 MG/0.6 ML SYRINGE SC SCH ×2 (10:18→22:20)
[2019-11-07] MEDS: SERTRALINE HCL 50 MG TAB PO SCH (10:19)
[2019-11-07] MEDS: FLORASTOR (S. BOULARDII) 250 MG CAP PO SCH (10:19)
[2019-11-07] MEDS: FUROSEMIDE 20 MG/2 ML VIAL IV SCH (10:23)
[2019-11-07] MEDS: methylPREDNISolone SOD SUCC 40 MG/ML VL IV SCH ×2 (10:24→22:19)
--- NOTE | 2019-11-07 11:22 | NUR ---
WOUND CARE NOTE: Wound care in to see patient per wound care request regarding "dark area at bridge of nose from Bi pap mask" that are noted upon assessment. Bedside nurse took photograph of patient's skin issue upon discovery for reference. Patient is 59 years old male admitted for CoVid Infection. Patient is resting in SDU bed in room 264. Patient is awake, alert and follow direction. Patient is in no stated pain and he appears to be in no pain using [employer]er Faces pain Scale. He's able to assist in turning and repositioning and his Sushant score is 14. Noted patient's nose bridge has 1.5x2cm intact skin with bright and dark red, non-blanchable area which reported from use of BiPap mask. R.T. at bedside and switch patient to different mask avoiding putting pressure to nose bridge area. Nose bridge pressure injury is clean, dry and intact, left open to air. Patient turned to his Rt side, no other wound noted, no pressure injury noted. Patient tolerated, repositioned patient for comfort. Bed in low position, call ha within reach with all safety precautions in placed RECOMMENDATION: Avoid pressure to nose bridge area, BID/PRN cleaning and application of Barrier cream to sacra/buttocks as preventative per MD order, Dietary consult, frequent turning and repositioning schedule as condition permits, redistribute pressure points with pillows, continue monitoring by wound care while patient is hospitalized. Addendum: 11/07/19 at 1603 by Cheli Obrien RN Amended: Links added.
--- NOTE | 2019-11-07 12:35 | NUR ---
DR. SNYDER BRIEFLY ROUNDING ON PT. UPDATED ON PT'S CONDITION, NO NEW ORDERS RECEIVED.
--- NOTE | 2019-11-07 12:40 | NUR ---
Nutrition Consult/Followup Note Wt 60.1 kg Unable to speak to pt d/t to pt with COVID positive in COVID isolation. [facility] with inadequate PO of < 50% x 2 days per RN doc. pt to be initiated on PN support from tonight @ 50 ml./hr providing 408 kcals and 50 gm proteins Est Energy needs BW 71 [id number] kcals (25-27 kcal/kgBW), Est Protein needs: 71-78 gms/day (1.0-1.1 gm/kgBW). Will continue to monitor and reassess prn. Labs: ALB 2.9 L, TG 165 H GLU 243 H, PREALB wnl BM: 1 BM noted 11/02 per RN note Skin: BS 14 mod risk, full details in child care center administrator doc. pt on Vit C ZN PES: Altered nutrition related lab values r.t current chronic medical condition aeb mod hypoalb, hyperglycemia, hypocalcemia Comments Will continue to monitor skin status, PO intake PN tolerance. F/u high 2-3 days Rec: Advance PN support to meet > 755 of needs. 2) consider Glucerna 1 carton bid as PO is low. 3) continue current plan of care
[2019-11-07] MEDS: INSULIN 70/30 1unit/0.01ml Susp (100units/ml) SC SCH ×2 (12:44→22:21)
[2019-11-07 13:18] LABS: Basophils # (auto) 0 10 ^3/uL (0-0.2); Basophils % (auto) 0.1 % (0.0-2.0); Eosinophils # (auto) 0.1 10 ^3/uL (0-0.8); Eosinophils % (auto) 0.6 % (0.0-7.0); Hematocrit 47.5 % (41.0-53.0); Hemoglobin 15.9 g/dL (13.5-17.5); Lymphocytes # (auto) 0.7 10 ^3/uL (0.4-5.4); Lymphocytes % (auto) 4.9 % (10.0-50.0); Mean Corpuscular Hemoglobin 30.6 pg (28.0-32.0); Mean Corpuscular Hgb Conc. 33.5 g/dL (32.0-36.0); Mean Corpuscular Volume 91.4 fL (80.0-100.0); Monocytes # (auto) 0.4 10 ^3/uL (0-1.3); Monocytes % (auto) 3.1 % (0.0-12.0); Neutrophils # (auto) 12.2 10 ^3/uL (1.6-8.6); Neutrophils % (auto) 91.3 % (37.0-80.0); Platelet Count (auto) 186 10^3/uL (140-450); Red Cell Distribution Width 13.4 % (11.8-14.3); White Blood Cell 13.4 10^3/uL (4.4-10.8)
--- NOTE | 2019-11-07 13:30 | NUR ---
NOTIFIED DR. JOHN THAT PT'S WANTED TO BE UPDATED ON PT'S CONDITION C/B # c/b person Sana Zapien.
[2019-11-07 13:37] LABS: INR 1.2 (0.9-1.15)
--- NOTE | 2019-11-07 18:00 | NUR ---
BG 256= COVERAGE GIVEN WITH 9 UNITS OF REGULAR INSULIN SC.
--- NOTE | 2019-11-07 19:15 | NUR ---
REPORT GIVEN TO ONCOMING SHIFT JASSON YOUNGER.
[2019-11-07] MEDS ORDERED: TPN PER PHARMACY IV NR ×8 (20:00)
[2019-11-07] MEDS ORDERED: CLINIMIX PER PHARMACY IV NR (20:00)
[2019-11-08] VITALS (12 sets, daily range): BP systolic 111–124; BP diastolic 74–86
[2019-11-08] MEDS: InsuLIN REG 1unit/0.01ml Soln (100units/ml) SC SCH ×5 (06:00→23:32)
[2019-11-08] MEDS: ACCU-CHEK COMFORT CURVE STRIP VI SCH ×5 (06:00→23:28)
--- NOTE | 2019-11-08 07:00 | NUR ---
No changes this shift. Pt still has no reserves available in regards to any efforts. Clinimix still infusing due to no PICC line. Pt alert and oriented. Report given, care endorsed.
[2019-11-08] MEDS: ALBUTEROL SULF HFA 90MCG INH 200DOSE IN SCH ×2 (07:09→23:11)
[2019-11-08] MEDS: BUDESONIDE (INHALATION) 0.5 MG/2 ML NEB NEB SCH ×2 (07:09→23:12)
[2019-11-08 07:20] LABS: Basophils # (auto) 0 10 ^3/uL (0-0.2); Basophils % (auto) 0.1 % (0.0-2.0); Eosinophils # (auto) 0 10 ^3/uL (0-0.8); Eosinophils % (auto) 0.1 % (0.0-7.0); Hematocrit 47.2 % (41.0-53.0); Lymphocytes # (auto) 0.8 10 ^3/uL (0.4-5.4); Lymphocytes % (auto) 5.3 % (10.0-50.0); Mean Corpuscular Hemoglobin 30.6 pg (28.0-32.0); Mean Corpuscular Hgb Conc. 33.9 g/dL (32.0-36.0); Mean Corpuscular Volume 90.3 fL (80.0-100.0); Monocytes # (auto) 0.5 10 ^3/uL (0-1.3); Monocytes % (auto) 3.3 % (0.0-12.0); Neutrophils # (auto) 14.3 10 ^3/uL (1.6-8.6); Neutrophils % (auto) 91.2 % (37.0-80.0); Nucleated Red Blood Cells % 0.1 %; Platelet Count (auto) 174 10^3/uL (140-450); Red Blood Cells 5.23 10^6/uL (4.5-5.90); Red Cell Distribution Width 12.9 % (11.8-14.3); White Blood Cell 15.7 10^3/uL (4.4-10.8)
[2019-11-08 07:40] LABS: Albumin 3.1 g/dL (3.4-5.0); Calcium 9.1 mg/dL (8.5-10.1); Magnesium 2.8 mg/dL (1.6-2.6); Potassium 3.9 mmol/L (3.5-5.1)
[2019-11-08 07:45] LABS: BUN/Creatinine Ratio 54.9; Bilirubin, Total 0.8 mg/dL (0.2-1.0); Phosphorus 3.8 mg/dL (2.5-4.90); Total Protein 7.3 g/dL (6.4-8.2)
[2019-11-08] MEDS: Glucerna Carbsteady SHAKE Vanilla 8oz PO SCH ×3 (08:00→18:00)
--- NOTE | 2019-11-08 09:42 | NUR ---
UPDATED PT'S NELI. DR. JOHN ROUNDING ON PT. I NOTIFIED MD THAT PT'S DAUGHTER WANTS TO BE UPDATED ON PT'S CONDITION.
[2019-11-08] MEDS: POTASSIUM CHL 10 Meq TABLET PO SCH (10:00)
--- NOTE | 2019-11-08 10:00 | NUR ---
DR. JOHN ROUNDING ON PT. HE WILL CALL AND UPDATE PT'S FAMILY. HE DID PLANNED TO DO YESTERDAY BUT HE RAN OUT OF TIME ON HIS MANUAL TRAINING TEACHER.
--- NOTE | 2019-11-08 10:00 | NUR ---
AM ASSESSMENT COMPLETED. REMAINS ON BIPAP 03/25 AT 100% FIO2 LS CT, DIMINISHED ON THE BASIS, SPO2 FLUCTUATES WITH ACTIVITY PT HAS NO OXYGEN RESERVES. SPO2 DROPS WITH INCREASED ACTIVITY. EDUCATED ON POC. PT VERBALIZED UNDERSTANDING.
[2019-11-08] MEDS: PANTOPRAZOLE 40 MG/10 ML VIAL INJ IV SCH (11:11)
[2019-11-08] MEDS: methylPREDNISolone SOD SUCC 40 MG/ML VL IV SCH ×2 (11:12→21:40)
[2019-11-08] MEDS: FUROSEMIDE 20 MG/2 ML VIAL IV SCH (11:13)
[2019-11-08] MEDS: ENOXAPARIN SOD 60 MG/0.6 ML SYRINGE SC SCH ×2 (11:13→21:40)
--- NOTE | 2019-11-08 12:00 | NUR ---
BG 102. NO INSULIN COVERAGE NEEDED. PT AFEBRILE. PT GROOMED BY KIANA SAUCEDO FOR FAMILY VISIT.
[2019-11-08] MEDS: INSULIN 70/30 1unit/0.01ml Susp (100units/ml) SC SCH ×2 (12:46→21:38)
--- NOTE | 2019-11-08 12:48 | NUR ---
PT'S VISITING PER DR. JOHN'S ORDER. PT' AND DAUGHTER , LOOKING AT PT THROUGH THE GLASS WINDOW. PT'S FAMILY WEARING THE MASK ALL THE ISOLATION COVID PRECAUTIONS TAKEN.
[2019-11-08] MEDS ORDERED: LIDOCAINE 1% (LOCAL ANESTH.) PF 5ml SDV ID ONE (14:30)
--- NOTE | 2019-11-08 14:31 | NUR ---
PICC line placement Patient educated on need for PICC line placement. All risks and benefits explained and all questions and concerns addressed prior to procedure. Noted past medical history and allergies with no contraindications. INR and Plt counts within acceptable range. 5 fr PICC line inserted via RIGHT BRACHIAL vein using [employer] US and Tip Location System. Sterile technique with maximum barrier precautions utilized. Blood return obtained from each of THE TWO lumens and each flushed easily with NS using proper technique. PICC secured with Stat-lock; biodisc and occlusive dressing applied. Stat portable chest x-ray obtained for PICC tip placement. *Baseline Arm Circumference 26CM, INTERNAL LENTH 38CM, EXTERNAL LENGTH 26 CM. . PICC lot # [id number]. Note:PICC LINE EXCHANGED OVER MIDLINE USING STERILE TECHNIQUE.
--- NOTE | 2019-11-08 15:59 | NUR ---
OK to use PICC line Xray completed. OK to use PICC line. PRIMARY RN NOTIFIED
--- NOTE | 2019-11-08 18:00 | NUR ---
BG 136. MEDICATED WITH 3 UNITS OF REGULAR INSULIN PER SS. PT DENIES ANY PAIN AT THIS TIME. PT REMAINS ON HIGH FLOW. SPO2 REMAINS FLUCTUATING, PT HAS TO BE REMAINED TO TAKE SLOW DEEP BREATHS AND TO TRY TO RELAX.
--- NOTE | 2019-11-08 19:00 | NUR ---
REPORT GIVEN TO ONCOMING SHIFT. PT'S NIECE CAME TO VISIT PT. UPDATED ON PT'S CONDITION.
[2019-11-08] MEDS ORDERED: TPN PER PHARMACY IV NR ×10 (20:00)
--- NOTE | 2019-11-08 20:00 | NUR ---
SHIFT OPENING NOTE RECEIVED PATIENT AWAKE, ALERT AND ORIENTED X4. LAYING IN A PRONE POSITION. ON HIGH FLOW NASAL CANNULA 60L, 100% FI02. RR 22. POX 87%. NO SOB OR PAIN NOTED. PHYSICAL ASSESSMENT COMPLETED, SEE INTERVENTIONS. INSTRUCTED ON POC AND TO CALL FOR ASSIST NEEDED. BED IS IN THE LOWEST POSITION WITH SIDE RAILS UP X2, CALL LIGHT IS WITHIN REACH.
[2019-11-08] MEDS: SODIUM CHLOR 0.9% PF (SALINE LOCK) 10ML VIAL/SYR IV SCH (21:39)
--- NOTE | 2019-11-08 22:45 | NUR ---
PATIENT PLACED ON BEDPAN INSTRUCTED TO CALL WHEN FINISHED.
--- NOTE | 2019-11-08 23:45 | NUR ---
PATIENT TAKING A LONG TIME TO RECOVER FROM SMALL AMOUNTS OF MOVEMENT IT HAS ALREADY BEEN AN HOUR SINCE DESATURATIONS STARTED. POX SUSTAINING IN THE 79-83% ON BIPAP 100% FI02. RESP RATE 40-50S, HR 120-140S. INFORMED HOSPITALIST OF EVENT. PER HOSPITALIST COUNTER INTELLIGENCE TECHNICIAN LOPEZ NEXT STEP IS INTUBATION AND, OBTAIN CONSENT FROM FAMILY MAKING THE DECISION. AWAITING FAMILY DECISION.
[2019-11-09] VITALS (11 sets, daily range): BP systolic 105–137; BP diastolic 71–87
--- NOTE | 2019-11-09 00:50 | NUR ---
ROUNDS PATIENT IS CURRENTLY LAYING IN BED ON BIPAP, POX HAS RECOVERED AFTER 1.5 HOURS OF LOW SATURATIONS 79-83. CURRENTLY 90%. PATIENT QUIETLY LAYING IN BED WITH EYES CLOSED. NO DISTRESS NOTED AT THIS TIME. SPOKE WITH DAUGHTER NELI WHO CALLED BACK FOR THE FAMILY MAKING FINAL DECISION STATING THAT IT IS OK TO INTUBATE THE PATIENT IF NECESSARY.
[2019-11-09] MEDS: ACCU-CHEK COMFORT CURVE STRIP VI SCH ×4 (05:31→23:08)
[2019-11-09] MEDS: InsuLIN REG 1unit/0.01ml Soln (100units/ml) SC SCH ×4 (05:32→23:08)
--- NOTE | 2019-11-09 05:55 | NUR ---
Respiratory note: AT BEDSIDE IN FULL PPE FOR COVID PRECAUTIONS. RECEIVED PT ON BIPAP, BIPAP CONNECTED TO RED OUTLET AND O2 SOURCE. ALARMS ARE SET AND AUDIBLE. AMBU BAG AND MASK AT BEDSIDE. PT WEARING UNDER THE NOSE MASK. PT HAS BREAKDOWN/OPEN WOUND ON BRIDGE OF NOSE. SCABBING AND SOME PEALING WITH SMALL DRY BLOOD IS VISIBLE. Z-GUARD ON WOUND (NOSE) AT THIS TIME. RN REYNA AWARE OF WOUND. PT DOES NOT WANT TO BE PLACED ON HFNC AT THIS TIME. MDI GIVEN WITHOUT ADVERSE REACTION NOTED. REQUESTING TO STAY ON BIPAP FOR A LITTLE LONGER. WILL CONTINUE TO MONITOR.
[2019-11-09] MEDS: ALBUTEROL SULF HFA 90MCG INH 200DOSE IN SCH ×4 (06:00→22:20)
[2019-11-09 06:15] LABS: Basophils # (auto) 0 10 ^3/uL (0-0.2); Eosinophils # (auto) 0 10 ^3/uL (0-0.8); Hematocrit 47.7 % (41.0-53.0); Hemoglobin 16.2 g/dL (13.5-17.5); Lymphocytes # (auto) 0.8 10 ^3/uL (0.4-5.4); Lymphocytes % (auto) 4.9 % (10.0-50.0); Mean Corpuscular Hemoglobin 30.5 pg (28.0-32.0); Mean Corpuscular Volume 89.8 fL (80.0-100.0); Monocytes # (auto) 0.7 10 ^3/uL (0-1.3); Monocytes % (auto) 4.5 % (0.0-12.0); Neutrophils # (auto) 14.5 10 ^3/uL (1.6-8.6); Neutrophils % (auto) 90.6 % (37.0-80.0); Platelet Count (auto) 163 10^3/uL (140-450); Red Blood Cells 5.31 10^6/uL (4.5-5.90); Red Cell Distribution Width 13.3 % (11.8-14.3)
[2019-11-09] MEDS: BUDESONIDE (INHALATION) 0.5 MG/2 ML NEB NEB SCH ×2 (06:32→22:44)
[2019-11-09 06:33] LABS: Potassium 3.8 mmol/L (3.5-5.1)
[2019-11-09 06:46] LABS: Albumin 3.1 g/dL (3.4-5.0); BUN/Creatinine Ratio 52.4; Bilirubin, Total 0.9 mg/dL (0.2-1.0); Magnesium 2.9 mg/dL (1.6-2.6); Phosphorus 3.2 mg/dL (2.5-4.90); Total Protein 7.2 g/dL (6.4-8.2)
--- NOTE | 2019-11-09 07:25 | NUR ---
END OF SHIFT REPORT GIVEN AND CARE ENDORSED TO NICOLASA SPAULDING. PATIENT IS LAYING IN BED SLEEPING. POX 90%, HR 90, R 24, BP 129/81.
[2019-11-09] MEDS: Glucerna Carbsteady SHAKE Vanilla 8oz PO SCH ×3 (08:00→17:40)
[2019-11-09] MEDS: methylPREDNISolone SOD SUCC 40 MG/ML VL IV SCH ×2 (09:29→20:16)
[2019-11-09] MEDS: ENOXAPARIN SOD 60 MG/0.6 ML SYRINGE SC SCH ×2 (09:29→20:16)
[2019-11-09] MEDS: PANTOPRAZOLE 40 MG/10 ML VIAL INJ IV SCH (09:29)
[2019-11-09] MEDS: SODIUM CHLOR 0.9% PF (SALINE LOCK) 10ML VIAL/SYR IV SCH ×2 (09:29→20:15)
[2019-11-09] MEDS: FUROSEMIDE 20 MG/2 ML VIAL IV SCH (09:29)
[2019-11-09] MEDS: POTASSIUM CHL 10 Meq TABLET PO SCH (09:30)
[2019-11-09] MEDS: INSULIN 70/30 1unit/0.01ml Susp (100units/ml) SC SCH ×2 (10:00→20:16)
--- NOTE | 2019-11-09 10:32 | NUR ---
Respiratory note: PT REQUESTING TO BE PLACED ON HFNC UNIT AT THIS TIME, HFNC UNIT CONNECTED TO WALL MEDICAL AIR AND O2 SOURCE. ALARMS ARE SET AND AUDIBLE. AMBU BAG AND MASK AT BEDSIDE. PT VERY SENSITIVE AT BRIDGE OF NOSE, SMALL AMOUNT OF DRY BLOOD IS APPARENT. BS ARE DIMINISHED T/O. WILL CONTINUE TO MONITOR. JASSON QUINONES COMMUNICATED ON CHANGE.
--- NOTE | 2019-11-09 11:20 | NUR ---
DR. JOHN HERE TO SEE PATIENT. SEE MD NOTES AND EMR FOR ANY NEW ORDERS.
[2019-11-09] MEDS ORDERED: SERTRALINE HCL 50 MG TAB PO ONE (11:30)
--- NOTE | 2019-11-09 13:50 | NUR ---
Respiratory note: AT BEDSIDE IN FULL PPE DUE TO COVID PRECAUTIONS. PT APPEARS COMFORTABLE AT THIS TIME. PT LAYING IN BED WATCHING TV. MDI GIVEN WITHOUT ADVERSE REACTION NOTED. NO OTHER CHANGES MADE. WILL CONTINUE TO MONITOR.
--- NOTE | 2019-11-09 14:12 | NUR ---
Nutrition Consult/Followup Note Wt 60.1 kg Unable to speak to pt d/t to pt with COVID positive in COVID isolation. pt is currently on CCHO 45 gm meal diet with inadequate PO of < 50% x 2 days per RN doc. pt to be initiated on PN support @ 54 ml./hr providing 1190 kcals and 60 gm proteins 950 NCP Est Energy needs BW 71 [id number] kcals (25-27 kcal/kgBW), Est Protein needs: 71-78 gms/day (1.0-1.1 gm/kgBW). Will continue to monitor and reassess prn. Labs: BUN 55 H, GLU 234 H, ALB 3.1 L BM: 1 BM noted 11/02 per RN note Skin: BS 14 mod risk, full details in careers adviser doc. pt on Vit C ZN PES: Altered nutrition related lab values r.t current chronic medical condition aeb mod hypoalb, hyperglycemia, hypocalcemia Comments Will continue to monitor skin status, PO intake PN tolerance. F/u high 2-3 days Rec: Advance PN support to meet > 75% of needs. 2) consider Glucerna 1 carton bid as PO is low. 3) continue current plan of care
--- NOTE | 2019-11-09 18:37 | NUR ---
DR. ALEJANDRE HERE TO SEE PATIENT. SEE EMR AND MD NOTES FOR ANY NEW ORDERS.
[2019-11-09] MEDS ORDERED: TPN PER PHARMACY IV NR ×10 (20:00)
--- NOTE | 2019-11-09 20:00 | NUR ---
SHIFT OPENING NOTE RECEIVED PATIENT AWAKE, ALERT AND ORIENTED X4. LAYING IN A PRONE POSITION. ON HIGH FLOW NASAL CANNULA 60L, 100% FI02. RR 28. POX 88%. NO SOB OR PAIN NOTED. PHYSICAL ASSESSMENT COMPLETED, SEE INTERVENTIONS. INSTRUCTED ON POC AND TO CALL FOR ASSIST NEEDED. BED IS IN THE LOWEST POSITION WITH SIDE RAILS UP X2, CALL LIGHT IS WITHIN REACH.
--- NOTE | 2019-11-09 22:15 | NUR ---
PATIENT SPOKE TO FAMILY VIA TELEPHONE
[2019-11-10] VITALS (12 sets, daily range): BP systolic 109–130; BP diastolic 64–89
--- NOTE | 2019-11-10 02:05 | NUR ---
ROUNDS PATIENT IS QUIETLY LAYING IN BED SLEEPING. NO SOB, DISTRESS OR PAIN NOTED. REMAINS ON HIGH FLOW NC 60L, 100 FI02 POX 91%. WILL CONTINUE TO CLOSELY MONITOR.
[2019-11-10 04:32] LABS: Calcium 8.5 mg/dL (8.5-10.1); Magnesium 2.6 mg/dL (1.6-2.6); Potassium 4.1 mmol/L (3.5-5.1)
[2019-11-10 04:36] LABS: Bilirubin, Total 0.8 mg/dL (0.2-1.0); Phosphorus 3.4 mg/dL (2.5-4.90); Total Protein 6.8 g/dL (6.4-8.2)
[2019-11-10] MEDS: InsuLIN REG 1unit/0.01ml Soln (100units/ml) SC SCH ×4 (05:36→23:31)
[2019-11-10] MEDS: ACCU-CHEK COMFORT CURVE STRIP VI SCH ×4 (05:37→23:28)
[2019-11-10] MEDS: ALBUTEROL SULF HFA 90MCG INH 200DOSE IN SCH ×3 (06:35→23:04)
[2019-11-10] MEDS: BUDESONIDE (INHALATION) 0.5 MG/2 ML NEB NEB SCH ×2 (06:35→23:04)
--- NOTE | 2019-11-10 07:00 | NUR ---
END OF SHIFT REPORT GIVEN AND CARE ENDORSED TO NICOLASA SPAULDING. PATIENT REMAINS ON HIGH FLOW NASAL CANNULA 60L, 100% TOLERATED WELL.
[2019-11-10] MEDS: Glucerna Carbsteady SHAKE Vanilla 8oz PO SCH ×3 (08:26→17:33)
[2019-11-10] MEDS: ALPRAZolam 0.25 MG TAB PO PRN ×2 (09:21→17:57)
--- NOTE | 2019-11-10 09:22 | NUR ---
PATIENT ANXIOUS, O2 SATURATION DECREASING RAPIDLY LOW 34% PATIENT PURPLISH IN COLOR.. RT HERE AND PUT PATIENT ON BIPAP. XANAX GIVEN. PATIENT CURRENTLY ON BIPAP AND NOW AT 90% WITH 100% FIO2.
[2019-11-10] MEDS: SERTRALINE HCL 50 MG TAB PO SCH (09:38)
[2019-11-10] MEDS: FUROSEMIDE 20 MG/2 ML VIAL IV SCH (10:20)
[2019-11-10] MEDS: SODIUM CHLOR 0.9% PF (SALINE LOCK) 10ML VIAL/SYR IV SCH ×2 (10:20→20:06)
[2019-11-10] MEDS: methylPREDNISolone SOD SUCC 40 MG/ML VL IV SCH ×2 (10:20→20:06)
[2019-11-10] MEDS: ENOXAPARIN SOD 60 MG/0.6 ML SYRINGE SC SCH ×2 (10:20→20:09)
[2019-11-10] MEDS: PANTOPRAZOLE 40 MG/10 ML VIAL INJ IV SCH (10:20)
[2019-11-10] MEDS: INSULIN 70/30 1unit/0.01ml Susp (100units/ml) SC SCH ×2 (10:30→20:09)
[2019-11-10] MEDS: TPN PER PHARMACY IV NR ×9 (19:34)
--- NOTE | 2019-11-10 20:00 | NUR ---
SHIFT OPENING NOTE RECEIVED PATIENT AWAKE, ALERT AND ORIENTED X4. ON BIPAP 18/, 100 FI02, POX 85%. PATIENT IS A LITTLE ANXIOUS BUT DOES NOT WANT MEDICATION. PHYSICAL ASSESSMENT COMPLETED, SEE INTERVENTIONS. INSTRUCTED ON POC AND TO CALL FOR ASSIST NEEDED. BED IS IN THE LOWEST POSITION WITH SIDE RAILS UP X2, CALL LIGHT IS WITHIN REACH.
[2019-11-11] VITALS (64 sets, daily range): BP systolic 58–129; BP diastolic 26–95
--- NOTE | 2019-11-11 03:00 | NUR ---
ROUNDS PATIENT LAYING IN BED SLEEPING. ON BIPAP. OCCASIONALLY REMOVES BIPAP, GETS ANXIOUS, AND RN NEEDS TO GO INSIDE TO PUT HIM BACK ON IT AND CALM HIM DOWN. PATIENT DESATURATES FAST WITH MINIMAL EXERTION. WILL CONTINUE TO CLOSELY MONITOR.
[2019-11-11 03:59] LABS: Albumin 3.3 g/dL (3.4-5.0); Calcium 8.8 mg/dL (8.5-10.1); Magnesium 2.6 mg/dL (1.6-2.6); Potassium 4.3 mmol/L (3.5-5.1)
[2019-11-11 04:02] LABS: BUN/Creatinine Ratio 60.6; Bilirubin, Total 0.8 mg/dL (0.2-1.0); Total Protein 7.3 g/dL (6.4-8.2)
[2019-11-11] MEDS: InsuLIN REG 1unit/0.01ml Soln (100units/ml) SC SCH ×3 (05:57→17:51)
[2019-11-11] MEDS: ACCU-CHEK COMFORT CURVE STRIP VI SCH ×3 (05:58→17:51)
[2019-11-11] MEDS ORDERED: ETOMIDATE (2MG/ML) 20ML VIAL IV ONE (07:09)
[2019-11-11] MEDS ORDERED: SUCCINYLCHOLINE CHLORIDE 20 MG/ML 10ML VIAL IV ONE (07:09)
[2019-11-11] MEDS ORDERED: ROCURONIUM 10MG/ML 10ML VIAL IV ONE ×2 (07:09→10:15)
--- NOTE | 2019-11-11 07:10 | NUR ---
LEFT MSG AND SENT PICTURE OF CRITICAL ABG RESULTS. NUMBER USED [phone]
--- NOTE | 2019-11-11 07:15 | NUR ---
REPORT RECEIVED CARE INITIATED
--- NOTE | 2019-11-11 07:20 | NUR ---
PAGED PALLET STONE INSERTER HOSPITALIST Spoke to Dr. Knight, updated him on patients deteriorating condition. Order for Ativan received.
--- NOTE | 2019-11-11 07:25 | NUR ---
SPOKE TO MD: DALI Spoke to Dr. Moreno. states to call ER and have available intubate patient. Vent and sedation orders received and verified.
[2019-11-11] MEDS ORDERED: LORazepam 2MG/ML-1ML VIAL ONE (07:28)
[2019-11-11] MEDS ORDERED: LORazepam 2MG/ML-1ML VIAL IV ONE (07:30)
--- NOTE | 2019-11-11 07:40 | NUR ---
END OF SHIFT REPORT GIVEN AND CARE ENDORSED TO MELANI SPAULDING. PATIENT HAD AN ANXIETY ATTACK WHICH HE WAS UNABLE TO RECOVER FROM. PATIENT TO BE INTUBATED PER DR. ESTRELLA. RTS AT BEDSIDE AWAITING INTUBATION.
--- NOTE | 2019-11-11 07:40 | NUR ---
RT NOTE: VOICE MAIL LEFT ON DR. MCNALLY CELL PHONE, TO GIVE ABG RESULTS AND PT. STATUS.
--- NOTE | 2019-11-11 07:50 | NUR ---
SPOKE TO FAMILY Spoke to Sana, patients daughter, and notified her of the need to intubate her father. Sana verbalized understanding.
[2019-11-11] MEDS: fentaNYL Drip 2500mCg/250mlNS 250 ML IV SCH ×2 (08:00→09:23)
[2019-11-11] MEDS: Glucerna Carbsteady SHAKE Vanilla 8oz PO SCH ×3 (08:00→15:45)
--- NOTE | 2019-11-11 08:00 | NUR ---
INTUBATED Dr. Moreno called regarding patient's respiratory status. Order received for intubation. Respiratory Therapist at bedside. Sana, daughter, called and instructed on need for intubation and sedation while on ventilator. Patient intubated by Dr. Storey with 7.5 ETT, 22 at the lip. Patient upgraded to ICU status. Charge nurse, Poultry Husbandry Worker, and director notified.
--- NOTE | 2019-11-11 08:00 | NUR ---
Respiratory note: PT INTUBATED WITH 8.0 ETT SECURED WITH MARIA GUADALUPE AT 21 CM AT THE LIP. SUCCESSFUL INTUBATION ON FIRST TRY. POSITIVE COLOR CHANGE, , EQUAL CHEST RISE AND FALL. PT PLACED ON VENT.
--- NOTE | 2019-11-11 08:10 | NUR ---
Respiratory note: PT TAKEN OFF VENT AND MANUALLY VENTILATED WITH AMBU BAG 15 LPM DUE TO PT SP02 DECREASING TO THE 80'S. MANUALLY BAGGED FOR 15 MINUTES UNTIL PT SP02 INCREASED TO 91% PLACED PT BACK ON VENT TO ORDERED SETTINGS.. JASSON STUBBS AT BEDSIDE. WHILE CHANGING LINENS, GETTING LINES AND MONITORING DEVISES IN PLACE AND ORGANIZED PT STARTED TO DESATURATED TO 75% SP02. MULTIPLE PULSE OX FINGER PROBES USED ON TOE, FINGERS AND EARS., THE WAVEFORM WERE GOOD AND HEART RATE WAS CORRELATING. PT PEAK PRESSURE WERE 50 , TIDAL VOLUMES WERE 200 AND BELOW AND MINUTE VENTILATION WAS 3. PT TAKEN OFF OF VENTILATOR AND MANUALLY BAGGED. PT SP02 WOULD INCREASE TO 90% PT MANUALLY BAGGED FOR AN HOUR. CHEST XRAY WAS TAKEN AND TUBE PLACEMENT VERIFIED TO BE IN SATISFACTORY POSITION. PT PLACED BACK ON ORDERED VENT SETTINGS. PT SP02 85%.
[2019-11-11] MEDS: ALBUTEROL SULF HFA 90MCG INH 200DOSE IN SCH ×3 (09:14→22:00)
[2019-11-11] MEDS: ATRACURIUM BESYLATE 1,000 MG in D5W 5% 150 ML IV SCH (09:19)
[2019-11-11] MEDS: MIDAZOLAM DRIP 50 mg/50mL 50 ML IV SCH ×2 (09:23→23:06)
[2019-11-11] MEDS: PROPOFOL 100 ML IV SCH (09:23)
--- NOTE | 2019-11-11 09:40 | NUR ---
Respiratory note: LEFT BEDSIDE. PT SP02 87%. PEAK PRESSURES ARE IN THE 50'S, WITH LOW TIDAL VOLUMES <250 AND LOW MINUTE VENTILATION AT 3.0. WILL CONTINUE TO MONITOR CLOSELY.
--- NOTE | 2019-11-11 09:52 | NUR ---
SPOKE TO FAMILY Updated Sana on patients status and successful intubation. Updated Sana that patient is not stable at this time but is ventilated. All questions and concerned addressed.
[2019-11-11] MEDS: FUROSEMIDE 20 MG/2 ML VIAL IV SCH (10:00)
[2019-11-11] MEDS: methylPREDNISolone SOD SUCC 40 MG/ML VL IV SCH ×2 (10:00→20:29)
[2019-11-11] MEDS: BUDESONIDE (INHALATION) 0.5 MG/2 ML NEB NEB SCH ×2 (10:00→22:59)
[2019-11-11] MEDS: PANTOPRAZOLE 40 MG/10 ML VIAL INJ IV SCH (10:00)
[2019-11-11] MEDS: INSULIN 70/30 1unit/0.01ml Susp (100units/ml) SC SCH ×2 (10:00→21:45)
[2019-11-11] MEDS: ENOXAPARIN SOD 60 MG/0.6 ML SYRINGE SC SCH ×2 (10:00→20:30)
[2019-11-11] MEDS: SERTRALINE HCL 50 MG TAB PO SCH (10:00)
[2019-11-11] MEDS: SODIUM CHLOR 0.9% PF (SALINE LOCK) 10ML VIAL/SYR IV SCH ×2 (10:05→20:29)
--- NOTE | 2019-11-11 10:40 | NUR ---
Respiratory note: PT VENT IS STILL ALARMING. PEAK PRESSURES ARE 55, VT 150 TO 250ML, MINUTE VENTILATION 3.0 L. PT SP02 85%. AT THIS TIME I TEXT THE NUMBER POSTED FOR DR. ESTRELLA AT [phone].. NO RESPONSE AT THIS TIME.
[2019-11-11] MEDS ORDERED: AMIODARONE 450mg/250ml AE 250 ML IV SCH ×2 (10:57→16:57)
[2019-11-11] MEDS ORDERED: AMIODARONE HCL 150 MG in D5W 5% 100 ML IV ONE (11:00)
--- NOTE | 2019-11-11 11:00 | NUR ---
Respiratory note: AT THIS TIME PT IS SVT WITH HEART RATE OF 160. CARDIOLOGY CONSULT ORDERED.
--- NOTE | 2019-11-11 11:10 | NUR ---
Respiratory note: DR. JUAREZ AT BEDSIDE FOR CARDIOLOGY CONSULT.. NEW ORDERS TO DO AN ADENOSINE PUSH FOR SVT.. AT BEDSIDE WITH RN. Blossom STUBBS GETTING PT PADS ON FOR PROCEDURE.
--- NOTE | 2019-11-11 11:10 | NUR ---
Respiratory note: RECEIVED [facility] [phone] MCNALLY THIS IS NOT HIS NUMBER.
[2019-11-11] MEDS ORDERED: ADENOSINE 6 MG/2 ML INJ IV ONE ×3 (11:14→11:15)
--- NOTE | 2019-11-11 11:15 | NUR ---
Respiratory note: AT THIS TIME PT HR 170, SP02 80%. AT BEDSIDE TO MONITOR FOR ADENOSINE PUSH. PT TOLERATED WELL.
--- NOTE | 2019-11-11 11:25 | NUR ---
Respiratory note: AT BEDSIDE TO MONITOR FOR 2ND ADENOSINE PUSH WITH RN. To SUTBBS. PT STILL SVT AT 170. PT BLOOD PRESURE NOT READING.
[2019-11-11] MEDS: PHENYLEPHRINE IV 250 ML IV SCH ×2 (11:30→23:05)
[2019-11-11] MEDS: NOREPINEPHRINE 8 MG/250ML KIT 250 ML IV SCH (11:30)
--- NOTE | 2019-11-11 11:30 | NUR ---
Respiratory note: PT ABG DRAWN AT THIS TIME.
--- NOTE | 2019-11-11 11:45 | NUR ---
RT NOTE: SENT TEXT TO () OF CRITICAL ABG RESULTS.
[2019-11-11] MEDS ORDERED: SODIUM BICARBONATE 8.4 % INJ 50ML VIAL IV ONE ×3 (11:59→13:30)
--- NOTE | 2019-11-11 12:00 | NUR ---
Respiratory note: AT THIS TIME VENT SETTINGS CHANGED TO ORDER SETTINGS FROM DR. BARRERA TO
--- NOTE | 2019-11-11 12:00 | NUR ---
BEDSIDE Dr. Moseley bedside. New orders received.
--- NOTE | 2019-11-11 12:00 | NUR ---
Respiratory note: AT THIS TIME LEFT PT ROOM. RT. Cosme COLLINS INFORMED ME SHE HAS CALLED AND TEXT DR. MCNALLY WITH CRITICAL ABG RESULTS. NO RESPONSE.
[2019-11-11] MEDS ORDERED: NOREPINEPHRINE 8 MG/250ML KIT 250 ML IV ONE (12:13)
--- NOTE | 2019-11-11 12:15 | NUR ---
Respiratory note: ATTEMPTED TO CALL AND TEXT DR. MCNALLY AT [phone] WITH CRITICAL ABG RESULTS.. NO RESPONSE .
--- NOTE | 2019-11-11 12:15 | NUR ---
BEDSIDE Dr. Jo bedside. New orders received.
--- NOTE | 2019-11-11 12:20 | NUR ---
RT NOTE: RECEIVED TEXT BACK FROM , "DALI IS COVERING TODAY". INFORMED RT AREN.
[2019-11-11] MEDS ORDERED: EPINEPHrine HCL 1 MG/10 ML SYRG ONE (12:30)
--- NOTE | 2019-11-11 12:39 | NUR ---
RT NOTE: LEFT VOICE MESSAGE AT EXT. 102 WITH CRITCAL ABG RESULTS. RT AREN BROOKS.
[2019-11-11 13:17] LABS: Hemoglobin 13.7 g/dL (13.5-17.5)
[2019-11-11 13:18] LABS: Hematocrit 40.3 % (41.0-53.0); Mean Corpuscular Hemoglobin 30.9 pg (28.0-32.0); Mean Corpuscular Hgb Conc. 34.1 g/dL (32.0-36.0); Mean Corpuscular Volume 90.7 fL (80.0-100.0); Red Blood Cells 4.44 10^6/uL (4.5-5.90); Red Cell Distribution Width 13.4 % (11.8-14.3)
[2019-11-11 13:24] LABS: White Blood Cell 31.4 10^3/uL (4.4-10.8)
[2019-11-11 13:27] LABS: Albumin 2.1 g/dL (3.4-5.0); Calcium 7.1 mg/dL (8.5-10.1); Magnesium 2.8 mg/dL (1.6-2.6); Potassium 4.8 mmol/L (3.5-5.1)
--- NOTE | 2019-11-11 13:30 | NUR ---
SPOKE TO Spoke to Dr. Moreno. New vent orders received, read back, and verified.
[2019-11-11 13:32] LABS: Bilirubin, Total 0.8 mg/dL (0.2-1.0); Total Protein 4.9 g/dL (6.4-8.2)
--- NOTE | 2019-11-11 13:35 | NUR ---
Respiratory note: PT VENT SETTINGS CHANGED BACK TO VC PER DR. MCNALLY ORDERS.
[2019-11-11 13:45] LABS: Basophils % (manual) 0 (0.0-2.0); Blast Cells 0; Eosinophils % (manual) 0 (0-7); Metamyelocytes % 0; Myelocytes % 0; Promyelocytes % 0; Reactive Lymphocytes 0
[2019-11-11 13:47] LABS: Band Neutrophils % (manual) 8; Lymphocytes % (manual) 7 (10.0-50.0); Monocytes % (manual) 8 (0-12)
[2019-11-11 13:48] LABS: Platelet Count (auto) 150 10^3/uL (140-450)
[2019-11-11 13:49] LABS: BUN/Creatinine Ratio 42.1
[2019-11-11] MEDS ORDERED: PHENYLEPHRINE IV 250 ML IV ONE (13:49)
[2019-11-11 13:51] LABS: Phosphorus 9.7 mg/dL (2.5-4.90)
--- NOTE | 2019-11-11 14:30 | NUR ---
Respiratory note: ABG DRAWN ON NEW VENT SETTINGS VC 24, 450, PEEP 16, 100%.
--- NOTE | 2019-11-11 14:30 | NUR ---
SPOKE TO Spoke to Dr. Moreno. New vent orders received, read back, and verified.
--- NOTE | 2019-11-11 14:40 | NUR ---
Respiratory note: NEW VENT ORDERS VENT SETTINGS CHANGED PER DR MCNALLY TO PC RR 24, P 30, PEEP 10, 100 % FI02.
--- NOTE | 2019-11-11 14:55 | NUR ---
SPOKE TO Spoke to Dr. Jo. New orders received for blood pressure support for vasopressin.
--- NOTE | 2019-11-11 16:40 | NUR ---
Respiratory note: DR. MCNALLY INFORMED OF CRITICAL ABG RESULTS.
--- NOTE | 2019-11-11 16:45 | NUR ---
Respiratory note: DR. MCNALLY AT BEDSIDE. NEW ORDERS FOR VENT SETTINGS RECEIVED AND VENT SETTINGS CHANGED.
[2019-11-11] MEDS: TPN PER PHARMACY IV NR ×19 (19:36→19:37)
--- NOTE | 2019-11-11 20:00 | NUR ---
SHIFT OPENING NOTE RECEIVED PATIENT INTUBATED AND SEDATED. FENTANYL AT 200, VERSED AT 15, PROPOFOL AT 50, ATRACURIUM AT 7. MD WANTS PATIENT DEEPLY SEDATED. PUPILS AT 2 AND FIXED. LEVOPHED AT 30, GREGOR AT 65. VASOPRESSIN AVAILABLE IF NEEDED. ETT SIZE 8.0, 21 AT THE LIP. VENT SETTINGS PRESSURE CONTROL 30, R 24, 100% FI02, PEEP 10. MONZON CATH DRAINING YELLOW URINE TO GRAVITY. PICC DOUBLE LUMEN TO RIGHT UPPER ARM INFUSING DRIPS. WILL CONTINUE TO CLOSELY MONITOR.
[2019-11-11 20:22] LABS: Mean Corpuscular Hgb Conc. 32.7 g/dL (32.0-36.0)
[2019-11-11 20:23] LABS: Hematocrit 45.6 % (41.0-53.0); Hemoglobin 14.9 g/dL (13.5-17.5); Mean Corpuscular Hemoglobin 30.2 pg (28.0-32.0); Mean Corpuscular Volume 92.3 fL (80.0-100.0); Platelet Count (auto) 115 10^3/uL (140-450); Red Blood Cells 4.94 10^6/uL (4.5-5.90); Red Cell Distribution Width 13.8 % (11.8-14.3)
[2019-11-11 20:29] LABS: White Blood Cell 35.6 10^3/uL (4.4-10.8)
[2019-11-11 20:31] LABS: Basophils % (manual) 0 (0.0-2.0); Blast Cells 0; Eosinophils % (manual) 0 (0-7); Metamyelocytes % 0; Myelocytes % 0; Promyelocytes % 0; Reactive Lymphocytes 0
--- NOTE | 2019-11-11 20:55 | NUR ---
SPOKE WITH DAUGHTER NELI UPDATED HER ON PATIENTS STATUS AND POC. VERBALIZED UNDERSTANDING.
[2019-11-11 21:10] LABS: Band Neutrophils % (manual) 9; Lymphocytes % (manual) 2 (10.0-50.0); Monocytes % (manual) 3 (0-12)
--- NOTE | 2019-11-11 22:30 | NUR ---
TOF 2/4 AT 8 AMPS. PARALYTIC DECREASED FROM 7 TO 5.
[2019-11-12] VITALS (95 sets, daily range): BP systolic 65–137; BP diastolic 30–74
[2019-11-12] MEDS: InsuLIN REG 1unit/0.01ml Soln (100units/ml) SC SCH ×5 (00:13→23:19)
[2019-11-12] MEDS: ACCU-CHEK COMFORT CURVE STRIP VI SCH ×5 (00:16→23:19)
[2019-11-12] MEDS: PROPOFOL 100 ML IV SCH ×4 (00:18→23:16)
[2019-11-12] MEDS: NOREPINEPHRINE 8 MG/250ML KIT 250 ML IV SCH ×3 (00:19→13:45)
--- NOTE | 2019-11-12 02:00 | NUR ---
TOF 2/4 AT POWER LEVEL OF 6. PARALYTIC REMAINS AT 5MCG/KG/MIN..
[2019-11-12] MEDS: VASOPRESSIN 50 UNITS in D5W 5% 247.5 ML IV SCH ×2 (03:00→11:00)
[2019-11-12] MEDS: MIDAZOLAM DRIP 50 mg/50mL 50 ML IV SCH ×6 (03:19→23:16)
[2019-11-12 03:27] LABS: Albumin 2.5 g/dL (3.4-5.0); Calcium 6.8 mg/dL (8.5-10.1); Magnesium 2.5 mg/dL (1.6-2.6)
--- NOTE | 2019-11-12 03:30 | NUR ---
SPOKE WITH PATIENTS DAUGHTER PROVIDED PASSWORD. UPDATED HER ON PATIENTS STATUS AND POC. VERBALIZED UNDERSTANDING.
[2019-11-12 03:31] LABS: BUN/Creatinine Ratio 24.5; Bilirubin, Total 1.6 mg/dL (0.2-1.0); Pre Albumin 29.6 mg/dL (20.0-40.0); Total Protein 5.7 g/dL (6.4-8.2)
[2019-11-12 04:31] LABS: Phosphorus 11.4 mg/dL (2.5-4.90); Potassium 6.5 mmol/L (3.5-5.1)
--- NOTE | 2019-11-12 04:45 | NUR ---
TOF 2/4 AT POWER LEVEL OF 5. PARALYTIC REMAINS AT 5MCG/KG/MIN.
[2019-11-12] MEDS: PHENYLEPHRINE IV 250 ML IV SCH ×3 (04:49→14:07)
--- NOTE | 2019-11-12 05:10 | NUR ---
[facility] REGARDING SEVERAL CRITICAL LAB VALUES K 6.5, WBC 35.6, PHOS 11.4, Cr 3.30 Addendum: 11/12/19 at 0613 by Monique García RN AWAITING CALL BACK.
--- NOTE | 2019-11-12 06:00 | NUR ---
UNSUCCESSFUL ATTEMPT AT NG/OG PLACEMENT
[2019-11-12] MEDS: fentaNYL Drip 2500mCg/250mlNS 250 ML IV SCH ×2 (06:28→18:55)
--- NOTE | 2019-11-12 06:50 | NUR ---
HOSPITALIST RETURNED CALL SPOKE WITH DR. SHAHID REGARDING CRITICAL LAB VALUES. NO NEW ORDERS REGARDING ELEVATED WBCS. ORDERED NEW LAB DRAWS FOR THE PARTIALLY HEMOLYZED BLOOD RESULTS IN THE BMP.
--- NOTE | 2019-11-12 07:30 | NUR ---
END OF SHIFT REPORT GIVEN AND CARE ENDORSED TO DONTAE SPAULDING.
--- NOTE | 2019-11-12 07:30 | NUR ---
REPORT RECEIVED FROM AIRPORT DUTY MANAGER NURSE. PATIENT RESTING IN BED INTUBATED AND SEDATED. RESPIRATIONS EVEN AND UNLABORED. NO SIGNS OF ACUTE DISTRESS NOTED. BED IN LOW POSITION, WILL CONTINUE TO MONITOR.
[2019-11-12] MEDS: Glucerna Carbsteady SHAKE Vanilla 8oz PO SCH ×3 (08:00→18:00)
--- NOTE | 2019-11-12 08:40 | NUR ---
DR. MCNALLY PAGED TO REPORT ABG CRITICAL RESULTS, JASSON DIGGS MADE AWARE.
[2019-11-12] MEDS: ENOXAPARIN SOD 60 MG/0.6 ML SYRINGE SC SCH ×2 (09:49→23:15)
[2019-11-12] MEDS: methylPREDNISolone SOD SUCC 40 MG/ML VL IV SCH ×2 (09:49→23:15)
[2019-11-12] MEDS: SERTRALINE HCL 50 MG TAB PO SCH (09:49)
[2019-11-12] MEDS: PANTOPRAZOLE 40 MG/10 ML VIAL INJ IV SCH (09:49)
[2019-11-12] MEDS: FUROSEMIDE 20 MG/2 ML VIAL IV SCH (09:49)
[2019-11-12] MEDS: SODIUM CHLOR 0.9% PF (SALINE LOCK) 10ML VIAL/SYR IV SCH ×2 (09:49→23:14)
--- NOTE | 2019-11-12 09:50 | NUR ---
[address]ND PAGED FOR DR. ESTRELLA TO REPORT CRITICAL ABG RESULTS. WILL CONTINUE TO MONITOR PT.
[2019-11-12] MEDS: INSULIN 70/30 1unit/0.01ml Susp (100units/ml) SC SCH ×2 (10:00→23:15)
--- NOTE | 2019-11-12 10:30 | NUR ---
PATIENT NOTED TO HAVE DTI TO RIGHT BUTTOCK/SACRUM, PHOTOS TAKEN AND WOUND CARE NURSE INFORMED.
--- NOTE | 2019-11-12 10:30 | NUR ---
NGT ATTEMPTED PLACEMENT OF NGT. UNABLE TO OBTAIN OGT AND BOTH NARES ARE CLOTTED OFF FROM PREVIOUS ATTEMPTS.
[2019-11-12 10:57] LABS: Basophils # (auto) 0 10 ^3/uL (0-0.2); Basophils % (auto) 0.2 % (0.0-2.0); Eosinophils # (auto) 0 10 ^3/uL (0-0.8); Hematocrit 33.7 % (41.0-53.0); Hemoglobin 11.1 g/dL (13.5-17.5); Lymphocytes # (auto) 0.9 10 ^3/uL (0.4-5.4); Lymphocytes % (auto) 3.6 % (10.0-50.0); Mean Corpuscular Hemoglobin 30.6 pg (28.0-32.0); Mean Corpuscular Volume 92.6 fL (80.0-100.0); Monocytes # (auto) 1.6 10 ^3/uL (0-1.3); Monocytes % (auto) 6.3 % (0.0-12.0); Neutrophils # (auto) 22.4 10 ^3/uL (1.6-8.6); Neutrophils % (auto) 89.9 % (37.0-80.0); Nucleated Red Blood Cells % 0.1 %; Platelet Count (auto) 67 10^3/uL (140-450); Red Blood Cells 3.64 10^6/uL (4.5-5.90); Red Cell Distribution Width 13.5 % (11.8-14.3); White Blood Cell 24.9 10^3/uL (4.4-10.8)
--- NOTE | 2019-11-12 11:03 | NUR ---
DR MCNALLY CALLED AND AWARE OF ABG RESULTS ON PATIENT. PER MD NO ADJUSTMENTS OF THE VENTILATOR AT THIS TIME PATIENT IS ON THE MAXIMUM SETTINGS. PER MD DR NDIAYE WILL ROUND ON PATIENT TODAY.
--- NOTE | 2019-11-12 11:10 | NUR ---
DR BARRERA AT BEDSIDE AND DISCUSS PLAN OF CARE. MD AWARE OF LAB VALUES WELL CURRENT MEDICATIONS AND VITAL SIGNS. MD SPOKE TO DAUGHTER NELI VIA TELEPHONE AND UPDATED ON PATIENT STATUS. MD DISCUSSED CODE STATUS WITH DAUGHTER. EMILY QUINTEROS WILL DISCUSS WITH OTHER CHILDREN AND MAKE A DECISION. ALL ORDERS NOTED IN CHART.
[2019-11-12 11:16] LABS: Albumin 1.8 g/dL (3.4-5.0); Potassium 5.1 mmol/L (3.5-5.1)
[2019-11-12 11:19] LABS: BUN/Creatinine Ratio 22.2; Bilirubin, Total 1.1 mg/dL (0.2-1.0); Total Protein 4.2 g/dL (6.4-8.2)
--- NOTE | 2019-11-12 11:36 | NUR ---
PAGED DR. NDIAYE AND LEFT MESSAGE IN VOICE MAIL REPORTING ABG RESULTS.
[2019-11-12] MEDS ORDERED: ALBUTEROL SULF 2.5 MG/0.5ML(0.5%) NEB SOLN NEB SCH (12:00)
--- NOTE | 2019-11-12 12:51 | NUR ---
SPOKE TO DR BARRERA ABOUT PATIENTS RENAL FUNCTION AND POOR URINE OUTPUT. PLACED NEPHROLOGY CONSULT.
[2019-11-12] MEDS ORDERED: VANCOMYCIN 1GM/250ML 250 ML IV ONE (13:00)
[2019-11-12] MEDS ORDERED: VANCOMYCIN PER PHARMACY 0 MG IV SCH (13:00)
[2019-11-12] MEDS ORDERED: CALCIUM GLUC 4.65meq/50ml D5AE 50 ML IV ONE ×3 (13:00→18:15)
[2019-11-12] MEDS: BUDESONIDE (INHALATION) 0.5 MG/2 ML NEB NEB SCH ×2 (13:10→22:35)
--- NOTE | 2019-11-12 14:18 | NUR ---
Nutrition Followup Note Wt 56.7 kg Pt is intubated, ventilated, with partial sedation of Propofol running @ 1.704 ml/hr, providing 45 kcals from lipids. Pt is currently NPO with TPN discontinued on 11/10, and with an unsuccessful attempt at NG Tube placement on 11/11 per RN doc. Will continue to monitor PO status, skin status, pertinent labs and weight trends. Will f/u in 2-3 days. Est Energy needs BW 71 [id number] kcals (25-27 kcal/kgBW), Est Protein needs: 71-78 gms/day (1.0-1.1 gm/kgBW). Will continue to monitor and reassess prn. Labs: BUN 81 H, CR 3.30 H, GFR 20 L, GLU 252 H, ALB 2.5 L BM: 1 BM noted 11/02 per RN note Skin: BS 14 mod risk, full details in pediatric acute care unit nurse doc. pt on Vit C ZN PES: Altered nutrition related lab values r.t current chronic medical condition aeb mod hypoalb, hyperglycemia, hypocalcemia Comments Will continue to monitor skin status, PO intake PN tolerance. F/u high 2-3 days Rec: Advance PN support to meet > 75% of needs. 2) consider Glucerna 1 carton bid as PO is low. 3) continue current plan of care
--- NOTE | 2019-11-12 14:37 | NUR ---
FAMILY AT BEDSIDE PER MD OK FOR FAMILY TO VISIT FOR SHORT PERIOD. ALL QUESTIONS AND CONCERNS ADDRESSED AT THIS TIME. PER CHILDREN PATIENT WILL CONTINUE FULL CODE AT THIS TIME.
[2019-11-12] MEDS: PHENYLEPHRINE INJ 40 MG in SODIUM CHL 0.9% 250 ML IV SCH ×2 (15:50→23:16)
--- NOTE | 2019-11-12 16:51 | NUR ---
ABG RESULTS REPORTED TO DR. NDIAYE VIA TELEPHONE. NO NEW ORDERS GIVEN AT THE MOMENT. WILL CONTINUE TO MONITOR PT.
--- NOTE | 2019-11-12 17:08 | NUR ---
WOUND CARE NOTE: PATIENT NOTED UPON ASSESSMENT TO HAVE TWO SKIN INTEGRITY ISSUES BY BEDSIDE NURSE. PATIENT CONTINUES TO BE INTUBATED, SEDATED, ON VASOPRESSORS. PATIENT HAS CURRENT NAVEEN SCORE OF 9. HE CONTINUES TO BE IN AIRBORNE ISOLATION FOR COVID 19. PATIENT HAS A 8 X 6 DARK RED/MAROON AREA TO THE LEFT SACRUM. THIS APPEARS TO BE AN EARLY DTI. UNABLE TO TRANSFER PATIENT ONTO AIR BED/DUE TO BEING IN AIRBORNE ISOLATION. LEFT OPEN TO AIR. NOSE CONTINUES TO HAVE A SCABBED ABRASION. THIS WOUND IS LEFT OPEN TO AIR. SKIN/WOUND CARE PLAN UPDATED. RECOMMEND: LEAVE NOSE WOUND OPEN TO AIR, PATIENT SHOULD BE POSITIONED ON RIGHT SIDE AND SUPINE POSITION, AVOIDING LEFT SIDE, WHERE DTI EXISTS. NO MASSAGING OF LEFT SACRUM SKIN TO AVOID FURTHER SKIN DAMAGE, TRANSFER TO AIR BED IF PATIENT TRANSFERS TO ANOTHER ROOM, CONTINUE WITH ALL OTHER WOUND CARE ORDERS PREVIOUSLY PRESCRIBED BY MD. WOUND CARE TEAM WILL CONTINUE TO MONITOR. Addendum: 11/12/19 at 1720 by Awilda Matthews RN Amended: Links added.
[2019-11-12] MEDS ORDERED: InsuLIN REG 1unit/0.01ml Soln (100units/ml) IV ONE (17:45)
[2019-11-12] MEDS ORDERED: DEXTROSE (50%) 50ML SYRG IV ONE (17:45)
[2019-11-12] MEDS: NOREPINEPHRINE BITARTRATE 16 MG in SODIUM CHL 0.9% 250 ML IV SCH (18:56)
--- NOTE | 2019-11-12 19:45 | NUR ---
SHIFT OPENING NOTE RECEIVED PATIENT INTUBATED AND SEDATED. FENTANYL AT 200, VERSED AT 15, PROPOFOL AT 50. ATRACURIUM AT 5. MD WANTS PATIENT DEEPLY SEDATED. PUPILS AT 2 AND SLUGGISH. LEVOPHED AT 26, GREGOR AT 65,VASOPRESSIN AT 0.03. EPINEPHRINE AVAILABLE IF NEEDED. ETT SIZE 8.0, 21 AT THE LIP. VENT SETTINGS PRESSURE CONTROL 30, R 24, 90% FI02, PEEP 10. POX 94%. MONZON CATH DRAINING DARK BREEZY URINE TO GRAVITY. PICC DOUBLE LUMEN TO RIGHT UPPER ARM INFUSING DRIPS. WILL CONTINUE TO CLOSELY MONITOR.
[2019-11-12] MEDS: TPN PER PHARMACY IV NR ×10 (19:58)
--- NOTE | 2019-11-12 20:00 | NUR ---
LINES PLACED RIGHT RADIAL ARTERIAL LINE AND RIGHT FEMORAL CENTRAL LINE TLC PLACED BY DR. NDIAYE AT BEDSIDE.
[2019-11-12] MEDS ORDERED: EPINEPHrine HCL INJECTION 8 MG in D5W 5% 250 ML IV SCH (20:16)
--- NOTE | 2019-11-12 20:30 | NUR ---
TOF 2/4 AT POWER LEVEL OF 5. PARALYTIC REMAINS AT 5MCG/KG/MIN.
[2019-11-12 20:39] LABS: Creatinine, Urine 50 mg/dL (30.0-125.0); Sodium Urine 72 mmol/L (40-220)
[2019-11-12] MEDS: ALBUTEROL SULF 2.5 MG/0.5ML(0.5%) NEB SOLN NEB SCH (22:35)
[2019-11-12] MEDS: MEROPENEM 1GM IVPB 100 ML IV SCH (23:14)
[2019-11-13] VITALS (61 sets, daily range): BP systolic 41–138; BP diastolic 17–74
--- NOTE | 2019-11-13 00:45 | NUR ---
UPDATED DAUGHTER SANJEEV ON PATIENTS STATUS AND POC VERBALIZED UNDERSTANDING
--- NOTE | 2019-11-13 00:55 | NUR ---
TOF 2/4 AT POWER LEVEL OF 5. PARALYTIC REMAINS AT 5MCG/KG/MIN.
[2019-11-13] MEDS: ATRACURIUM BESYLATE 1,000 MG in D5W 5% 150 ML IV SCH ×2 (01:04→09:19)
[2019-11-13] MEDS: PHENYLEPHRINE INJ 40 MG in SODIUM CHL 0.9% 250 ML IV SCH ×2 (03:00→12:52)
[2019-11-13] MEDS: PROPOFOL 100 ML IV SCH (03:00)
[2019-11-13] MEDS: MIDAZOLAM DRIP 50 mg/50mL 50 ML IV SCH (03:00)
[2019-11-13 03:48] LABS: Mean Corpuscular Volume 91.5 fL (80.0-100.0)
[2019-11-13 03:52] LABS: Hematocrit 33.6 % (41.0-53.0); Hemoglobin 11.3 g/dL (13.5-17.5); Mean Corpuscular Hemoglobin 30.9 pg (28.0-32.0); Mean Corpuscular Hgb Conc. 33.8 g/dL (32.0-36.0); Platelet Count (auto) 72 10^3/uL (140-450); Red Blood Cells 3.67 10^6/uL (4.5-5.90); Red Cell Distribution Width 13.6 % (11.8-14.3)
[2019-11-13 04:11] LABS: Albumin 2.1 g/dL (3.4-5.0); BUN/Creatinine Ratio 17.4
[2019-11-13 04:12] LABS: White Blood Cell 33.7 10^3/uL (4.4-10.8)
[2019-11-13 04:13] LABS: Basophils % (manual) 0 (0.0-2.0); Blast Cells 0; Eosinophils % (manual) 0 (0-7); Metamyelocytes % 0; Promyelocytes % 0; Reactive Lymphocytes 0
[2019-11-13 04:14] LABS: Bilirubin, Total 1.3 mg/dL (0.2-1.0); Total Protein 4.8 g/dL (6.4-8.2)
[2019-11-13 04:26] LABS: Calcium 5.8 mg/dL (8.5-10.1)
[2019-11-13] MEDS: NOREPINEPHRINE BITARTRATE 16 MG in SODIUM CHL 0.9% 250 ML IV SCH (04:36)
--- NOTE | 2019-11-13 04:45 | NUR ---
MORNING HYGIENE CARE FULL BED BATH PERFORMED USING CHG WIPES AND WARM SOAPY WASH CLOTHES. ORAL CARE DONE. MONZON CARE DONE. GOWN CHANGED. PARTIAL LINEN CHANGED. PATIENT REPOSITIONED. TOLERATED IT WELL.
[2019-11-13 05:03] LABS: Band Neutrophils % (manual) 6; Lymphocytes % (manual) 5 (10.0-50.0); Monocytes % (manual) 2 (0-12); Myelocytes % 1
[2019-11-13] MEDS: ACCU-CHEK COMFORT CURVE STRIP VI SCH ×2 (05:23→11:51)
[2019-11-13] MEDS: InsuLIN REG 1unit/0.01ml Soln (100units/ml) SC SCH ×2 (05:24→11:53)
--- NOTE | 2019-11-13 06:30 | NUR ---
SPOKE WITH HOSPITALIST SPOKE WITH DR. SHAHID. INFORMED HIM ON PATIENTS CURRENT STATUS AND CRITICAL LABS. ORDERS OBTAINED FOR D50 1 AMP, 10 UNITS OF REGULAR INSULIN IV, AND CALCIUM GLUCONATE.
[2019-11-13] MEDS ORDERED: DEXTROSE (50%) 50ML SYRG IV ONE ×2 (06:45→08:45)
[2019-11-13] MEDS ORDERED: InsuLIN REG 1unit/0.01ml Soln (100units/ml) IV ONE ×2 (06:45→08:45)
[2019-11-13] MEDS ORDERED: CALCIUM GLUC 4.65meq/50ml D5AE 50 ML IV ONE ×2 (06:45→08:45)
--- NOTE | 2019-11-13 07:20 | NUR ---
END OF SHIFT REPORT GIVEN AND CARE ENDORSED TO DONTAE SPAULDING.
--- NOTE | 2019-11-13 07:20 | NUR ---
REPORT RECEIVED FROM CLINICAL RESEARCH TECH NURSE. PATIENT RESTING IN BED AT THIS TIME INTUBATED AND SEDATED. RESPIRATIONS EVEN AND UNLABORED. VITAL SIGNS UNSTABLE WITH PATIENT ON MULTIPLE DRIPS. SEE IV SPREADSHEET AND VITALS. NO SIGNS OF ACUTE DISTRESS NOTED. BED IN LOW POSITION, WILL CONTINUE TO MONITOR.
[2019-11-13] MEDS: BUDESONIDE (INHALATION) 0.5 MG/2 ML NEB NEB SCH (07:25)
[2019-11-13] MEDS: ALBUTEROL SULF 2.5 MG/0.5ML(0.5%) NEB SOLN NEB SCH ×2 (07:25→15:00)
[2019-11-13] MEDS ORDERED: SODIUM BICARBONATE 50ML VIAL 100 ML in SOD CHL 0.45% 1,000 ML IV SCH (08:30)
[2019-11-13] MEDS ORDERED: FUROSEMIDE INJECTION 100 MG in SODIUM CHL 0.9% 100 ML IV SCH (08:30)
--- NOTE | 2019-11-13 08:40 | NUR ---
DR MATTA CALLED AND UPDATED ON PATIENT STATUS. ALL ORDERS NOTED IN CHART.
[2019-11-13] MEDS ORDERED: ALBUMIN 25% 100 ML IV SCH (08:45)
--- NOTE | 2019-11-13 09:25 | NUR ---
SPOKE TO DR BARRERA AND INFORMED OF PATIENT STATUS AND CURRENT VITAL SIGNS WITH DECREASED BLOOD PRESSURE IN THE 70-80S SYSTOLIC. PER MD START PATIENT ON DOPAMINE PER PROTOCOL. ALL ORDERS NOTED IN CHART.
[2019-11-13] MEDS ORDERED: DOPamine 1600MCG/ML D5W 250 ML IV ONE (09:28)
[2019-11-13] MEDS ORDERED: DOPamine 1600MCG/ML D5W 250 ML IV SCH (09:30)
[2019-11-13] MEDS: PANTOPRAZOLE 40 MG/10 ML VIAL INJ IV SCH (10:00)
[2019-11-13] MEDS: SERTRALINE HCL 50 MG TAB PO SCH (10:00)
[2019-11-13] MEDS: SODIUM CHLOR 0.9% PF (SALINE LOCK) 10ML VIAL/SYR IV SCH (10:00)
[2019-11-13] MEDS: INSULIN 70/30 1unit/0.01ml Susp (100units/ml) SC SCH (10:00)
[2019-11-13] MEDS: MEROPENEM 500MG IVPB 50 ML IV SCH ×2 (10:00→11:00)
[2019-11-13] MEDS: methylPREDNISolone SOD SUCC 40 MG/ML VL IV SCH (10:00)
[2019-11-13] MEDS: ENOXAPARIN SOD 60 MG/0.6 ML SYRINGE SC SCH (10:00)
[2019-11-13] MEDS: MEROPENEM 1GM IVPB 100 ML IV SCH (10:30)
--- NOTE | 2019-11-13 11:20 | NUR ---
DR BARRERA AT BEDSIDE TO DISCUSS PLAN OF CARE. NO NEW ORDER AT THIS TIME.
--- NOTE | 2019-11-13 11:35 | NUR ---
PAGED DR BARRERA FOR PATIENTS BLOOD SUGAR OF 473 AND RECHECK OF 475. INSULIN GIVEN PER PROTOCOL. AWAITING CALL BACK.
--- NOTE | 2019-11-13 12:16 | NUR ---
PAGED DR BARRERA FOR SECOND TIME IN REGARDS TO ELEVATED BLOOD SUGARS. AWAITING CALL BACK.
--- NOTE | 2019-11-13 12:28 | NUR ---
SPOKE TO DR BARRERA CALLED BACK, PER MD INCREASE SLIDING SCALE FOR BLOOD SUGAR TO AGGRESSIVE. ALL ORDERS NOTED IN CHART.
[2019-11-13] MEDS ORDERED: DEXTROSE (50%) 50ML SYRG IV PRN (13:00)
--- NOTE | 2019-11-13 13:30 | NUR ---
DR MATTA AT BEDSIDE TO ASSESS PATIENT AND DISCUSS PLAN OF CARE. NO NEW ORDERS AT THIS TIME.
[2019-11-13] MEDS ORDERED: CALCIUM ACETATE 667 MG CAP NG SCH (14:00)
[2019-11-13] MEDS ORDERED: SODIUM ZIRCONIUM CYCL 10 GM PAK PO SCH (14:00)
--- NOTE | 2019-11-13 14:23 | NUR ---
PAGED DR BARRERA TO INFORM OF PATIENT STATUS AND FAMILY AT BEDSIDE. AWAITING CALL BACK.
--- NOTE | 2019-11-13 15:00 | NUR ---
DR BARRERA AT BEDSIDE TO PRONOUNCE PATIENT.
--- NOTE | 2019-11-13 15:31 | NUR ---
CALLED [facility] [facility] AND SPOKE TO [employer] SPECIAL PROCEDURES TECHNOLOGIST TO REPORT PATIENT . AWAITING CALL BACK FROM [employer] [facility].
--- NOTE | 2019-11-13 15:39 | NUR ---
COMBER FIXER COMBER FIXER CLEARED PATIENT, PER SGT. ZEHRA, NO CASE NUMBER GIVEN.
--- NOTE | 2019-11-13 15:40 | NUR ---
[facility] SPOKE TO [facility] PATIENT IS NOT A CANDIDATE FOR DONATION. REFERENCE # [id number]
--- NOTE | 2019-11-13 17:04 | NUR ---
SPOKE TO LEONARD FROM MORTUARY AND PATIENT WILL BE PICKED UP BETWEEN 60-90 MINUTES.
[2019-11-13] MEDS ORDERED: ACCU-CHEK COMFORT CURVE STRIP VI SCH (18:00)
[2019-11-13] MEDS ORDERED: InsuLIN REG 1unit/0.01ml Soln (100units/ml) SC SCH (18:00)
[2019-11-14] MEDS ORDERED: EPINEPHrine HCL INJECTION 4 MG in SODIUM CHL 0.9% 250 ML IV SCH (03:00)
== END 2019-11-13 15:00 | disposition expired | DRG 720 ==
LOC: ER 22:40 → TELE 22:41 → TELE-EAST 10-20 09:48 → DOU IN ICU 10-21 12:47
PROVIDERS: ADMIT Hospitalist; ATTEND Internal Medicine
PROC: 5A09357 Assistance with Respiratory Ventilation, Less than 24 Consecutive Hours, Continuous Positive Airway Pressure (ICD-10-PCS; 2019-10-26)
PROC: 5A09357 Assistance with Respiratory Ventilation, Less than 24 Consecutive Hours, Continuous Positive Airway Pressure (ICD-10-PCS; 2019-10-27)
PROC: 5A09557 Assistance with Respiratory Ventilation, Greater than 96 Consecutive Hours, Continuous Positive Airway Pressure (ICD-10-PCS; principal; 2019-10-28)
PROC: 5A09357 Assistance with Respiratory Ventilation, Less than 24 Consecutive Hours, Continuous Positive Airway Pressure (ICD-10-PCS; 2019-11-02)
PROC: 5A09457 Assistance with Respiratory Ventilation, 24-96 Consecutive Hours, Continuous Positive Airway Pressure (ICD-10-PCS; 2019-11-03)
PROC: 5A09457 Assistance with Respiratory Ventilation, 24-96 Consecutive Hours, Continuous Positive Airway Pressure (ICD-10-PCS; 2019-11-05)
PROC: 30233K1 Transfusion of Nonautologous Frozen Plasma into Peripheral Vein, Percutaneous Approach (ICD-10-PCS; 2019-11-06)
PROC: 3E0336Z Introduction of Nutritional Substance into Peripheral Vein, Percutaneous Approach (ICD-10-PCS; 2019-11-07)
PROC: 5A09357 Assistance with Respiratory Ventilation, Less than 24 Consecutive Hours, Continuous Positive Airway Pressure (ICD-10-PCS; 2019-11-08)
PROC: 5A09357 Assistance with Respiratory Ventilation, Less than 24 Consecutive Hours, Continuous Positive Airway Pressure (ICD-10-PCS; 2019-11-09)
PROC: 5A09357 Assistance with Respiratory Ventilation, Less than 24 Consecutive Hours, Continuous Positive Airway Pressure (ICD-10-PCS; 2019-11-10)
PROC: 5A1945Z Respiratory Ventilation, 24-96 Consecutive Hours (ICD-10-PCS; 2019-11-11)
PROC: 0BH17EZ Insertion of Endotracheal Airway into Trachea, Via Natural or Artificial Opening (ICD-10-PCS; 2019-11-11)
PROC: 03HY32Z Insertion of Monitoring Device into Upper Artery, Percutaneous Approach (ICD-10-PCS; 2019-11-12)
PROC: 02HV33Z Insertion of Infusion Device into Superior Vena Cava, Percutaneous Approach (ICD-10-PCS; 2019-11-12)
DX: A41.89 Other specified sepsis (principal); U07.1 COVID-19; R65.21 Severe sepsis with septic shock; J12.89 Other viral pneumonia; N17.0 Acute kidney failure with tubular necrosis; J96.01 Acute respiratory failure with hypoxia; J98.11 Atelectasis; E11.65 Type 2 diabetes mellitus with hyperglycemia; I10 Essential (primary) hypertension; E87.1 Hypo-osmolality and hyponatremia; E78.5 Hyperlipidemia, unspecified; E83.39 Other disorders of phosphorus metabolism; E83.51 Hypocalcemia; J44.0 Chronic obstructive pulmonary disease with (acute) lower respiratory infection; E87.5 Hyperkalemia; Z66 Do not resuscitate; D69.6 Thrombocytopenia, unspecified; E66.9 Obesity, unspecified; Z80.9 Family history of malignant neoplasm, unspecified; Z83.3 Family history of diabetes mellitus; Z87.891 Personal history of nicotine dependence; R00.0 Tachycardia, unspecified; E87.2 Acidosis; Z79.4 Long term (current) use of insulin
CPT/HCPCS: 36415; 36569; 36600; 71045; 80048; 80053; 80202; 81001; 82040; 82306; 82550; 82565; 82570; 82728; 82805; 82962; 83605; 83615; 83735; 83880; 84100; 84300; 84439; 84443; 84478; 84484; 84550; 85007; 85025; 85027; 85379; 85610; 85652; 85730; 86141; 86850; 86900; 86901; 87040; 87070; 87077; 87081; 87186; 87205; 93005; 93970; 94002; 94003; 94640; 94660; 94762; C9113; G0378; J0153; J0171; J0330; J0610; J1100; J1815; J2001; J2185; J2250; J2543; J2704; J3480; J7060; J7131; P9047